=== PATIENT | male | born 1975 | race Caucasian/White ===

== ENCOUNTER 2020-05-21 13:10 | Emergency (ER) | payer MEDICAID, SELFPAY ==
--- NOTE | ~2020-05-21 | XR_ITS ---
EXAMINATION: XR CHEST CLINICAL INFORMATION: Shortness of breath COMPARISON: Chest radiographs 04/06/2019 TECHNIQUE: Portable upright AP view of the chest was obtained. FINDINGS: Patient slightly rotated to right. The lungs are clear. There is no pneumothorax, pleural reaction, airspace consolidation, or effusion. No groundglass opacity. The heart is normal in size. The vascularity is normal. No acute bony abnormality. XR/XR chest 1V IMPRESSION: Unremarkable examination.
[2020-05-21 13:31] VITALS: BP 126/78; PULSE 80; RESP 16; TEMP 37.1; O2SAT 98; BMI 27.6
[2020-05-21 15:10] LABS: Influenza A PCR NEGATIVE (Negative); Influenza B PCR NEGATIVE (Negative); Resp Syncy Virus RNA Qual PCR NEGATIVE (Negative); SARS COV2 PCR INHOUSE POSITIVE (Negative)
--- NOTE | 2020-05-21 15:30 | ED_ITS ---
HPI - General Adult General Chief complaint: General Medical Stated complaint: covid symptoms Time Seen by Provider: 05/21/20 13:37 Source: patient Mode of arrival: ambulatory History of Present Illness HPI narrative: 44-year-old male a past medical history of asthma, hyperlipidemia, hypertension, renal calculi, presenting to the ED complaining headache, myalgias/body aches, and subjective fever x2 days. Presenting to ED with who has URI sx and is being tested for COVID-19 as while. Denies recent travel, shortness of breath, chest pain, fever, cough, abdominal pain, LE edema Onset (ago): day(s) Related Data Previous Rx's Medication Instructions Recorded albuterol sulfate 2 puff INHALATION Q4-6H PRN #6.7 g 05/21/20 azithromycin See Rx Instructions .ROUTE 05/21/20 .COMPLEX #6 tab benzonatate [Tessalon Perles] 100 mg PO TID PRN #14 cap 05/21/20 Allergies Allergy/AdvReac Type Severity Reaction Status Date / Time No Known Allergies Allergy Unverified 12/06/19 15:59 [No Known Allergies*] Review of Systems Review of Systems: Constitutional: +Subj Fever, No Chills ENT/Mouth: No Ear Pain, No Nasal Congestion, No Hoarseness, No sore throat, No Rhinorrhea Cardiovascular: No Chest Pain, No SOB Respiratory: No Cough Gastrointestinal: No Nausea, No Vomiting, No Diarrhea, No Abdominal pain Musculoskeletal: No joint pain, +Myalgias, No Joint Swelling Skin: No Skin Lesions, No rash Neuro: +headache Yes all other systems are reviewed and are negative [facility] Past Medical History Attestation statement: The following information was validated with the patient. Medical History (Updated 05/21/20 @ 15:32 by LISA Wilkerson) Asthma Elevated cholesterol Hypertension Renal calculi Surgical History (Updated 05/21/20 @ 13:35 by Ulises Polk) Hx of heart artery stent Social History Social History Advance Directives: No Advance Directives Information Provided: No Physical Exam Vital Signs: Vital Signs: Last Vital Signs Temp 98.7 F 05/21/20 13:31 Pulse 80 05/21/20 13:31 Resp 16 05/21/20 13:31 BP 126/78 05/21/20 13:31 Pulse Ox 98 05/21/20 13:31 Body Mass Index 27.6 Const: General: cooperative, healthy appearing, no acute distress and well developed Orientation/consciousness: patient oriented x3 Limitations: no limitations HENMT: Head: Yes normal to inspection Ears: hearing grossly normal bilaterally General nose exam: Normal external nose present Face and sinus: Yes normal facial exam Eyes: General: appearance normal, both eyes and all related structures EOM: EOMs intact bilaterally Neck: Neck: Yes normal visual inspection and Yes no meningeal signs Resp: Effort & Inspection: normal respiratory effort Auscultation: clear to auscultation bilaterally, no crackles, no rales, no rhonchi and no wheezes Cardio: Rate: regular rate Heart sounds: S1 normal heart sound present and S2 normal heart sound present GI: Inspection: Yes normal to inspection Skin: Rashes: no rashes Wounds: no wounds Neuro: General: patient oriented x3 and no meningeal signs Gait exam (Neuro): Normal gait present Extrem: General: Yes normal to inspection Course Course Course Narrative: XR chest 1V IMPRESSION: Unremarkable examination -COVID-19 positive Medical Decision Making [facility] Narrative Medical decision making narrative: On exam VSS, NAD, well appearing, lungs CTA, nontoxic, concern for viral syndrome/COVID-19. Low concern for ACS/PE or pneumonia Plan: CXR, COVID-19 testing Lab Data Labs: Lab Results 05/21/20 Range/Units 14:18 Coronavirus (PCR) POSITIVE A (Negative) Influenza Type A (PCR) NEGATIVE (Negative) Influenza Type B (PCR) NEGATIVE (Negative) RSV RNA Qual (PCR) NEGATIVE (Negative) Discharge Plan Discharge Clinical Impression: COVID-19 Patient Disposition: Home, Self-Care Instructions: COVID-19 (Coronavirus Disease 2019) (ED) Additional Instructions: You have COVID-19. Take Tylenol and Motrin at home for fever and body aches. Tessalon Perles are for cough. Azithromycin as antibiotic, take as prescribed Albuterol as inhaler is for shortness of breath/wheezing, take as needed If you develop constant worsening shortness of breath, constant worsening chest pain, fever unresolved with Tylenol or Motrin return to the ED immediately. Call your doctor to inform them of your results At this time you will be okay for discharge. Please plan for self quarantine for up to 10- 14 days. Do not expose yourself to others. You may not go to work. If testing does come back negative you may return to activities as long as you are no longer having any symptoms for at least 3 days. Please continue to follow cold instructions and wash your hands frequently. You may take Tylenol as directed on the bottle for pain or fever. CDC Guidelines for home isolation: - Stay away from others - WEAR A MASK if you are sick AND STAY HOME - Cover your mouth and nose with a tissue when you cough or sneeze. Dispose of tissues in a lined trash can and wash your hands immediately with soap and water for at least 20 seconds. If soap and water are not available, clean hands with alcohol-based hand inpatient auditor that contains at least 60% alcohol. - Clean your hands often with soap and water for at least 20 seconds - Avoid touching your eyes, nose and mouth with unwashed hands - Do not share dishes, drinking glasses, cups, eating utensils, towels, or bed ding with other people in your home. After using these items, wash them thoroughly with soap and water or put in the staff reporter. - Clean high-touch surfaces in your isolation area ( sick room and bathroom) every day; let a caregiver clean and disinfect high-touch surfaces in other areas of the home. Clean the area or item with soap and water or another detergent if it is dirty. Then, use a household disinfectant. - Limit contact with pets and animals: If you must care for a pet, wash your hands before and after interacting with them) Prescriptions: New albuterol sulfate 90 mcg/actuation HFA aerosol inhaler 2 puff inhalation Q4-6H PRN (Reason: shortness of breath or wheezing) Qty: 6.7 RF: 0 azithromycin 250 mg tablet See Rx Instructions .ROUTE .COMPLEX Qty: 6 RF: 0 benzonatate [Tessalon Perles] 100 mg capsule 100 mg PO TID PRN (Reason: cough) Qty: 14 RF: 0 Referrals: Sonia Valadez MD [Primary Care Provider] - 2 days (CALL) Stand Alone Forms: Work/School Release Print Language: Persian
== END 2020-05-21 15:59 | disposition home or self-care (01) ==
PROVIDERS: Physician Assistant; Emergency Provider Emergency Medicine; PCP Internal Medicine
DX: U07.1 COVID-19 (principal); R51.9 Headache, unspecified; M79.10 Myalgia, unspecified site; R50.9 Fever, unspecified; Z79.899 Other long term (current) drug therapy
CPT/HCPCS: 0241U; 36415; 71045; 99282; 99283

== ENCOUNTER 2020-05-25 19:13 | Emergency (ER) | payer MEDICAID, SELFPAY ==
--- NOTE | ~2020-05-25 | XR_ITS ---
EXAMINATION: XR CHEST CLINICAL INFORMATION: Shortness of breath COMPARISON: 05/21/2020 TECHNIQUE: Frontal view of the chest was obtained. FINDINGS: No significant abnormality is noted involving the heart, lungs, mediastinum, bony thorax or soft tissues. XR/XR chest 1V IMPRESSION: Unremarkable examination.
[2020-05-25 19:42] VITALS: BP 117/74; PULSE 70; RESP 18; TEMP 37.4; O2SAT 98; BMI 27.4
--- NOTE | 2020-05-25 20:06 | ED_ITS ---
HPI - General Adult General Chief complaint: General Medical Stated complaint: COVID + Time Seen by Provider: 05/25/20 19:44 Source: patient Mode of arrival: ambulatory Limitations: no limitations History of Present Illness HPI narrative: 44-year-old male here with multiple complaints. Tells me he was diagnosed with COVID May 21. he had x-ray done which is unremarkable. he was placed on azithromycin which hhe completed this morning. he is here today with continued shortness of breath with exertion, cough, subjective fevers, chills, body aches, diarrhea, low back pain, nausea. Taking Motrin and Tylenol w ith improvement in symptoms. No chest pain, leg swelling or pain. Tells me the symptoms are not worsened but persistent. Related Data Previous Rx's Medication Instructions Recorded albuterol sulfate 2 puff INHALATION Q4-6H PRN #6.7 g 05/21/20 azithromycin See Rx Instructions .ROUTE 05/21/20 .COMPLEX #6 tab benzonatate [Tessalon Perles] 100 mg PO TID PRN #14 cap 05/21/20 Allergies Allergy/AdvReac Type Severity Reaction Status Date / Time No Known Allergies Allergy Unverified 12/06/19 15:59 [No Known Allergies*] Review of Systems Review of Systems: Yes all other systems are reviewed and are negative Constitutional: Constitutional: Reports no additional constitutional complaints, Denies body ache(s), Reports chills, Reports fever(s) (subjective ), Denies headache(s) and Denies weakness Comments: +body aches Eyes: Eyes: Reports no additional eye complaints and Denies change in vision ENT: Reports system reviewed and no additional complaints, except as documented, Denies dizziness, Denies headache(s), Denies nasal congestion, Denies nasal discharge and Denies neck pain Cardiovascular: Cardiovascular: Reports no additional cardiovascular complaints, Denies chest pain, Denies leg edema and Reports dyspnea Respiratory: Respiratory: Reports no additional respiratory complaints, Reports cough and Reports dyspnea Gastrointestinal: Gastrointestinal: Reports no additional gastrointestinal complaints, Denies abdominal pain, Reports diarrhea, Reports nausea and Denies vomiting Genitourinary: Genitourinary: Denies urinary incontinence Musculoskeletal: Musculoskeletal: Reports no additional musculoskeletal complaints, Denies back pain, Denies arthralgias, Denies joint swelling, Denies neck pain, Denies numbness and Denies tingling Integumentary/Breasts: Skin/Breast: Reports system reviewed and no additional complaints, except as docu and Denies rash Neurologic: Reports system reviewed and no additional complaints, except as documented, Denies Abnormal speech present, Denies dizziness, Denies headache(s), Denies numbness, Denies tingling and Denies weakness PMFSH Past Medical History Attestation statement: The following information was validated with the patient. Source: old records reviewed and nursing notes reviewed Medical History Asthma Elevated cholesterol Hypertension Renal calculi Surgical History Hx of heart artery stent Social History Social History Advance Directives: No Advance Directives Information Provided: Yes Physical Exam Vital Signs: Vital Signs: Last Vital Signs Temp 99.3 F 05/25/20 19:42 Pulse 70 05/25/20 19:42 Resp 18 05/25/20 19:42 BP 117/74 05/25/20 19:42 Pulse Ox 98 05/25/20 19:42 Body Mass Index 27.4 Const: General: cooperative, healthy appearing, comfortable and no acute distress Orientation/consciousness: patient oriented x3 Limitations: no limitations HENMT: Head: Yes normal to inspection Ears: hearing grossly normal bilaterally General nose exam: Normal external nose present Face and sinus: Yes normal facial exam Mouth: Normal oral and palatal mucosa present Throat: Yes posterior oropharynx normal Eyes: General: appearance normal, both eyes and all related structures Pupils: Equal, round and reactive pupils present Neck: Neck: Yes normal visual inspection Chest: Chest palpation & inspection: normal inspection of the chest Resp: Effort & Inspection: normal respiratory effort Auscultation: clear to auscultation bilaterally Cardio: Rate: regular rate Rhythm: regular rhythm Peripheral pulses: Peripheral pulses 2+ throughout GI: Inspection: Yes normal to inspection Palpation (GI): Soft to palpation and nontender Auscultation: normal bowel sounds Back/Spine/Pelvis: Thoracic/Lumbar Spine: thoracic and lumbar spine normal to inspection Skin: General skin exam: no rashes or lesions noted Neuro: General: patient oriented x3, no focal motor deficits and normal sensation to monofilament Cranial nerves: Yes Equal, round and reactive pupils present Cognition (Neuro): normal cognition Speech: No Abnormal speech present Gait exam (Neuro): Normal gait present Motor exam (neuro): 5/5 motor strength present throughout Extrem: General: Yes normal to inspection, Yes no pedal edema and Yes no calf tenderness Course Course Course Narrative: 44 yo male known COVID + here with continued symptoms of subjective fevers, chills, cough, SOB, diarrhea, nausea. Stable vital signs, well appearing. Will repeat CXR. 2030-chest x-ray unremarkable. Recommended continuing supportive care at home. Reviewed worrisome signs and symptoms and when to return to the emergency department. Comfortable with discharge home. Medical Decision Making Medical Records Medical records reviewed: Yes I reviewed the patient's medical records. Lab Data Lab results reviewed: Yes I reviewed the patient's lab results. Imaging Data Chest x-ray: Attestation: I personally reviewed and interpreted this imaging study as follows: Radiologist's impression: [address] [id number] ReportSigned Patient: Jimi Elias JMR#: [id number]: [id number]:[id number]/Sex: 44 / MADM Date: 05/25/20Loc: EDAttending Dr: Ordering Physician: MAR GARNETT NP Date of Service: 05/25/20 Procedure(s): XR chest 1V Accession Number(s): [id number] cc: MAR GARNETT NP~ EXAMINATION: XR CHEST CLINICAL INFORMATION: Shortness of breath COMPARISON: 05/21/2020 TECHNIQUE: Frontal view of the chest was obtained. FINDINGS: No significant abnormality is noted involving the heart, lungs, mediastinum, bony thorax or soft tissues. XR/XR chest 1V IMPRESSION: Unremarkable examination. Discharge Plan Discharge Clinical Impression: COVID-19 Patient Disposition: Home, Self-Care Instructions: COVID-19 (Coronavirus Disease 2019) (ED) Additional Instructions: Your x-ray today looks unremarkable. There is no signs of pneumonia. Continue your albuterol as needed Continue Motrin and Tylenol alternating Increase fluids, rest Return for worsening shortness of breath, chest pain as discussed. Consider buying a pulse oximeter and monitor her oxygen saturations at home. Return here for oxygen saturations less than 90%. Prescriptions: No Action albuterol sulfate 90 mcg/actuation HFA aerosol inhaler 2 puff inhalation Q4-6H PRN (Reason: shortness of breath or wheezing) Qty: 6.7 RF: 0 azithromycin 250 mg tablet See Rx Instructions .ROUTE .COMPLEX Qty: 6 RF: 0 benzonatate [Tessalon Perles] 100 mg capsule 100 mg PO TID PRN (Reason: cough) Qty: 14 RF: 0 Referrals: ED Physician,Generic [Physician] - 2 days Interventions: ED Discharge Assessment Last Done: 05/25/20 20:59 Discharge Date/Time: 05/25/20 21:00
== END 2020-05-25 21:00 | disposition home or self-care (01) ==
PROVIDERS: Emergency Provider Internal Medicine
DX: U07.1 COVID-19 (principal); I10 Essential (primary) hypertension; J45.909 Unspecified asthma, uncomplicated
CPT/HCPCS: 71045; 99283

== ENCOUNTER 2020-05-29 11:47 | Emergency (ER) | payer MEDICAID, SELFPAY ==
--- NOTE | ~2020-05-29 | CT_ITS ---
EXAMINATION: CT ABDOMEN AND PELVIS WITH CONTRAST CLINICAL INFORMATION: Nausea vomiting and abdominal pain COMPARISON: None TECHNIQUE: Multidetector volumetric images were obtained from the superior aspect of the liver through the pubic symphysis following administration 85 mL of Omnipaque 350 intravenous contrast. Sagittal and coronal reformatted images were obtained on the technologist's workstation. Oral contrast: No This CT examination was performed using dose optimization techniques as appropriate, variously including the following: *Automated exposure control *Adjustment of mA and/or kV according to patient size (this includes techniques or standardized protocols for targeted exams where dose is matched to indication/reason for exam; i.e. extremities or head) *Use of iterative reconstruction technique DLP: 449 mGy-cm FINDINGS: LUNG BASES: The visualized lung bases are unremarkable. LIVER, GALLBLADDER, AND BILIARY TREE: The liver is normal in size, shape, and attenuation. The mass that measured fat density on the lungs CT measures fluid density on the current exam. This is most likely a hepatic cyst. As stated in the prior report, ultrasound is recommended for further evaluation. No focal a hepatic lesion or biliary ductal dilatation is present. The gallbladder is unremarkable with no evidence of radiopaque gallstones, gallbladder wall thickening, or obvious pericholecystic inflammatory changes. PANCREAS: Unremarkable. SPLEEN: Unremarkable. ADRENAL GLANDS: Unremarkable. KIDNEYS AND URETERS: The kidneys are normal in size, shape, and attenuation. No hydronephrosis, hydroureter, or calculi seen. No perinephric stranding. BLADDER: Unremarkable. GASTROINTESTINAL TRACT: The small and large bowel are unremarkable. The appendix is unremarkable. ABDOMINAL WALL: No significant hernia is appreciated. LYMPH NODES: Small inguinal nodes are present but there is no retroperitoneal adenopathy. VASCULAR: Unremarkable. PELVIC VISCERA: Prostate and seminal vesicles are unremarkable. OSSEOUS STRUCTURES: Unremarkable. Some mild degenerative changes present at T12-L1. CT/CT abdomen pelvis w con IMPRESSION: A cause for the patient's nausea, vomiting and abdominal pain has not been found. Incidental note made of probable hepatic cyst. Ultrasound is recommended for further evaluation.
--- NOTE | ~2020-05-29 | CT_ITS ---
EXAMINATION: CT ANGIOGRAM CHEST WITH AND WITHOUT CONTRAST (CT PULMONARY ANGIOGRAM FOR PE) CLINICAL INFORMATION: Shortness of breath/chest discomfort, + COVID. COMPARISON: None TECHNIQUE: Prior to contrast administration, noncontrast localization images were obtained. Subsequently, multidetector volumetric imaging was performed from the thoracic inlet to below the diaphragms following the administration of 85 mL Omnipaque 350 intravenous contrast. No contrast reaction reported. Sagittal, coronal, and MIP oblique sagittal reformatted images were obtained on the CT workstation, uploaded to PACS, and reviewed. This CT examination was performed using dose optimization techniques as appropriate, variously including the following: *Automated exposure control. *Adjustment of mA and/or kV according to patient size (this includes techniques or standardized protocols for targeted exams where dose is matched to indication/reason for exam; i.e. extremities or head). *Use of iterative reconstruction technique. Total exam dose-length product 237 mGy-cm. FINDINGS: QUALITY OF STUDY/CONTRAST BOLUS: Satisfactory. PULMONARY ARTERIES: No central or segmental pulmonary emboli. THORACIC AORTA: No aneurysm or dissection. A 4-vessel aortic arch is seen with a separate origin to the left vertebral artery. LUNG: Multifocal ground-glass infiltrates are seen involving all lobes. Bibasilar atelectasis is present. Findings are quite suggestive of COVI-19. No suspicious lung masses are seen. PLEURA: No pleural effusion or pneumothorax. MEDIASTINUM: Normal heart size. No pericardial effusion. No hilar or mediastinal lymphadenopathy. No evidence of septal bowing or right heart strain. CHEST WALL/AXILLA: No axillary or internal mammary lymphadenopathy. OSSEOUS STRUCTURES: No acute or suspicious osseous abnormality. UPPER ABDOMEN: There is probable hepatic steatosis present. No reflux of contrast into the hepatic veins to suggest elevated right heart pressures. There is an ill-defined 2.5 cm mass centrally in the liver that measures fat density which is of uncertain significance. Liver ultrasound would be a good first step at further assessment. CT/CT angio chest PE protocol IMPRESSION: 1. No evidence of pulmonary emboli. 2. Multifocal ground-glass infiltrates suggestive of COVID infection. 3. A 2.5 cm liver mass. This measures fat density which is of questionable significance. Ultrasound is recommended for further evaluation. VTE: Negative.
--- NOTE | ~2020-05-29 | US_ITS ---
EXAMINATION: US ABDOMEN LIMITED CLINICAL INFORMATION: 2.5 cm mass centrally in the liver that measured fat density on the chest CT but fluid density on the abdominal CT. COMPARISON: CT chest and abdomen performed earlier today TECHNIQUE: Real-time imaging of the right upper quadrant abdominal viscera. FINDINGS: The exam is extremely limited as the patient would not cooperate and assuming the supine position. Unfortunately, the mass in the liver could not be visualized. The liver was echogenic consistent with hepatic steatosis. As the mass was not seen, this could represent a hemangioma that was isoechoic with the liver. US/US abdomen limited IMPRESSION: The liver mass seen on CT could not be visualized with ultrasound. Diagnosis code ovaries be confirmed with an elective outpatient dynamic liver MRI.
[2020-05-29 14:55] VITALS: BP 130/79; PULSE 89; RESP 18; TEMP 37.7; O2SAT 99; BMI 27.3
--- NOTE | 2020-05-29 15:03 | ECG_ITS ---
Test Reason : DYSPNEA Blood Pressure : / mmHG Vent. Rate : 083 BPM Atrial Rate : 083 BPM P-R Int : 126 ms QRS Dur : 074 ms QT Int : 354 ms P-R-T Axes : 046 018 021 degrees QTc Int : 415 ms Normal sinus rhythm Normal ECG When compared with ECG of 05-NOV-2019 06:40, No significant change was found Referred By: Lynn Argueta Electronically Signed By:RIVERA RITCHIE MD
--- NOTE | 2020-05-29 15:05 | PC.NURSE ---
Pt alert, oriented x 3. Dry cough, complaining of chest discomfort, Pt has history of heart attack in 2010. Pt to be moved to room 1 in ED for cardiac monitoring. Provider Lynn singleton.
[2020-05-29] MEDS: 0.9 % Sodium Chloride 1,000 ML 999 ML IVCONT (15:41)
[2020-05-29 15:47] LABS: MANUAL DIFF FLAG NO
[2020-05-29 15:56] LABS: INTERNATIONAL NORM RATIO 1.1 (0.9-1.1); Prothrombin Time 13.2 SEC (10.8-13.0)
[2020-05-29 15:59] LABS: Partial Thromboplastin Time 34.7 SEC (24.1-38.0)
[2020-05-29 16:00] VITALS: BP 130/80; PULSE 82; RESP 20; TEMP 36.3; O2SAT 100
--- NOTE | 2020-05-29 16:00 | ED.URI ---
HPI - URI/Sore Throat General Chief Complaint: Upper Respiratory Symptoms Stated Complaint: covid postive cough Time Seen by Provider: 05/29/20 14:51 Source: patient Mode of arrival: ambulatory Limitations: language barrier ([place]ic-speaking) History of Present Illness HPI Narrative: 44-year-old male with a past medical history of COVID-19 recently diagnosed on 05/21/2020, myocardial infarction with cardiac stent, diabetes, hypertension, hyperlipidemia, asthma and renal calculi presenting to the ED with complaints of worsening symptoms which include fatigue, fevers, productive cough, shortness of breath, chest discomfort, pain with deep inspiration, nausea/vomiting/diarrhea and abdominal pain over the past few days worse today. MD elicited complaint: fever and cough Pertinent past history: asthma and other (Myocardial infarction) Onset (ago): day(s) (05/21/2020 worse today ) Consistency: constant and progressively worsening Severity: moderate Able to tolerate fluids by mouth: Yes Exacerbating factors: exertion and deep breaths Relieving factors: nothing Associated symptoms: fever, chills, myalgias, cough, chest pain, shortness of breath, abdominal pain, nausea, vomiting and diarrhea Treatments prior to arrival: none Related Data Previous Rx's Medication Instructions Recorded albuterol sulfate 2 puff INHALATION Q4-6H PRN #6.7 g 05/21/20 azithromycin See Rx Instructions .ROUTE 05/21/20 .COMPLEX #6 tab benzonatate [Tessalon Perles] 100 mg PO TID PRN #14 cap 05/21/20 Allergies Allergy/AdvReac Type Severity Reaction Status Date / Time No Known Allergies Allergy Unverified 12/06/19 15:59 [No Known Allergies*] Review of Systems Review of Systems: Constitutional : + Fever, +Chills, + Fatigues, + Malaise, No Night Sweats, No Weight loss ENT/Mouth : No Hearing loss, No Ear Pain, No Nasal Congestion, No Sinus Pain, No Hoarseness, No sore throat, No Rhinorrhea, No Swallowing Difficulty Eyes: No Eye Pain, No Swelling, No Redness, No Foreign Body, No Discharge, No Vision Changes Cardiovascular : + Chest discomfort, + SOB, + Dyspnea on Exertion, + Orthopnea, No Edema, No extremity swelling, No Palpitations Respiratory : + Cough, + Sputum, No Wheezing Gastrointestinal : + Nausea, + Vomiting, + Diarrhea, + abdominal Pain, No Hematochezia, No Melena Genitourinary : No irregular bleeding, No Dysuria, No Urinary Frequency, No Hematuria, No Urinary Incontinence, No Urgency, No Flank Pain, No Urinary Flow Changes, No Hesitancy Musculoskeletal : No joint pain, No Myalgias, No Joint Swelling Skin : No Skin Lesions, No rash Neuro : No Weakness, No Numbness, No Paresthesias, No Loss of Consciousness, No Dizziness, No Headache Psych : No Anxiety/Panic, No Depression, No SI/HI/AH/VH Heme/Lymph: No Bruising, No Bleeding,No Lymphadenopathy Endocrine : No Polyuria, No Polydipsia, No Temperature Intolerance Yes all other systems are reviewed and are negative [facility] Past Medical History Attestation statement: The following information was validated with the patient. Medical History Asthma Elevated cholesterol Hypertension Renal calculi Surgical History Hx of heart artery stent Social History Social History Alcohol intake: never Smoking Status: Never smoker Use of substances other than those prescribed or required for medical reasons: No Advance Directives: No Advance Directives Information Provided: No Physical Exam Vital Signs: Vital Signs: Last Vital Signs Temp 97.4 F 05/29/20 16:00 Pulse 82 05/29/20 16:00 Resp 20 05/29/20 16:00 BP 130/80 05/29/20 16:00 Pulse Ox 100 05/29/20 16:00 Body Mass Index 27.3 vital signs have been reviewed as normal and appeared to be correct. Blood pressure normal. Heart rate normal. Respiration rate normal. Temperature normal. Oxygen saturation normal. Appearance: Alert. Oriented X3. No acute distress. Head: Normal external exam. Normocephalic. Eyes: PERRLA. EOMI. Conjunctiva and sclera normal. Eyelids normal. ENT: Tympanic membranes normal. Nares normal. External ear canals normal. Pharynx normal. Uvula midline. Moist mucous membranes. No trismus noted. No drooling noted. No muffled voice noted. Neck: Normal inspection. Neck supple. FROM. No adenopathy. No meningeal signs. CVS: Normal heart rate and rhythm. Heart sound normal. No murmurs noted. Pulses normal throughout. Respiratory: No respiratory distress. Painless inspiration. Breath sounds normal. No wheezes/rales/rhonchi noted. Chest nontender. No accessory muscle usage noted or decreased air movement noted. Abdomen: Soft and mild tenderness diffusely. Nondistended. No guarding. No rigidity. Bowel sounds normal in all 4 quadrants. No distention noted. No organomegaly noted. No visible injury noted. No rebound tenderness. Negative Rovsing sign. Negative obturator's sign. Negative psoas sign. Negative Vo sign. Back: No CVA tenderness. Full range of motion noted. Skin: Skin warm and dry. Normal skin color. Normal skin turgor. No rashes/lesions/lacerations noted. Extremities: No lower extremity noted. No calf tenderness noted. Extremities exhibit normal range of motion. Extremities nontender. Neuro: Oriented X 3. No motor deficit. No sensory deficit. Reflexes normal. Course Course Course Narrative: 15pm - 44-year-old male with a past medical history of COVID-19 recently diagnosed on 05/21/2020, myocardial infarction with cardiac stent, diabetes, hypertension, hyperlipidemia, asthma and renal calculi presenting to the ED with complaints of worsening symptoms which include fatigue, fevers, productive cough, shortness of breath, chest discomfort, pain with deep inspiration, nausea/vomiting/diarrhea and abdominal pain over the past few days worse today. - on exam patient is alert and oriented x3. Not in any acute distress. Vital signs are stable within normal limits. CV RRR, lungs clear to auscultation, abdomen is soft although diffusely tender. Patient is neuro intact. No focal neuro deficits noted. No calf tenderness or lower extremity edema noted. - Concern for ACS vs PE vs PNA vs worsening COVID vs intra-abdominal process - Plan: Labs, EKG, CT scan of abdomen and pelvis with IV contrast, CT angio chest for PE then re-evaluate Reevaluation(s) Reevaluation #1: - white blood cell count 3000 - potassium 5.2 - BUN 19 - alkaline phosphate 139 - CRP 2.33 - all other labs including troponin within normal limits. - EKG normal sinus rhythm with ventricular rate of 83 with normal SC interval normal QRS duration normal QT/QTC interval. No acute ischemic changes noted. Similar compared to prior EKG 11/05/2019 - at this time waiting CT scan angio of chest for PE and CT scan of abdomen and pelvis with IV contrast Time: 16:58 Reevaluation #2: - CT scan of abdomen pelvis revealed an area of concern in the liver therefore they are recommending a ultrasound therefore ordered a liver ultrasound at this time. - CT scan of chest for PE negative for PE. - I updated the patient on the plan sign-out to CAROLINE Hernandez pending liver ultrasound. Time: 18:00 MDM - URI/Sore Throat Medical Records Attestation: I reviewed the patient's medical records. Lab Data Attestation: I reviewed the patient's lab results. Result diagrams: 05/29/20 15:38 05/29/20 15:38 Labs: Lab Results 05/29/20 05/29/20 05/29/20 Range/Units 15:38 15:38 15:38 WBC 3.4 L (4.8-10.8) X10*3/uL RBC 4.66 (4.60-5.80) X10*6/uL Hgb 13.2 L (14.0-18.0) g/dl Hct 39.6 L (42-52) % MCV 85.0 (80-98) fL MCH 28.3 (27.0-33.0) pg MCHC 33.3 (31.0-36.0) g/dl RDW 12.5 (11.0-16.0) % Plt Count 119 L (160-400) X10*3/uL MPV 10.3 (9.4-12.4) fL Immature Gran % (Auto) 0.3 (0.0-0.4) % Neut % (Auto) 71.4 (45-73) % Lymph % (Auto) 20.7 (20-40) % [place] % (Auto) 7.6 (2-11) % Eos % (Auto) 0.0 (0-4) % Baso % (Auto) 0.0 (0-2) % Lymph # (Auto) 0.7 L (1.2-4.9) X10*3/uL [place] # (Auto) 0.3 (0.1-1.2) X10*3/uL Eos # (Auto) 0.0 (0.0-0.4) X10*3/uL Baso # (Auto) 0.0 (0.0-0.2) X10*3/uL Abs Immat Gran (auto) 0.01 (0.00-0.03) X10*3/uL Absolute Neuts (auto) 2.5 (2.0-8.3) X10*3/uL Absolute Nucleated RBC 0.000 (0.0-0.012) X10*3/uL Nucleated RBC % (auto) 0.0 (0.0-0.2) /100WBC PT 13.2 H (10.8-13.0) SEC INR 1.1 (0.9-1.1) APTT 34.7 (24.1-38.0) SEC D-Dimer < 200 NG/ML Sodium 138 (135-145) mmol/L Potassium 5.2 H (3.3-5.1) mmol/L Chloride 100 (96-108) mmol/L Carbon Dioxide 28 (22-29) mmol/L Anion Gap 15 (12-20) BUN 19 H (9-16) mg/dL Creatinine 1.37 (0.5-1.4) mg/dL Estim Creat Clear Calc 66.5 Estimated GFR 56 Random Glucose 162 H (60-115) mg/dL Calcium 9.2 (8.4-10.2) mg/dL Magnesium 1.8 (1.6-2.6) mg/dL Ferritin 188 (20-250) ng/mL Total Bilirubin 0.5 (0.0-1.0) mg/dL Direct Bilirubin 0.2 (0.0-0.5) mg/dL AST 30 (5-37) U/L ALT 28 (0-40) U/L Alkaline Phosphatase 139 H (39-117) U/L Lactate Dehydrogenase 178 (118-273) U/L Troponin I High Sens (<3.5-35.0) ng/L C-Reactive Protein 2.33 H (< or = 0.50) mg/dL B-Natriuretic Peptide (<100) pg/mL Total Protein 7.9 (6.5-8.0) g/dL Albumin 4.6 (3.5-5.0) g/dL 05/29/20 Range/Units 15:38 WBC (4.8-10.8) X10*3/uL RBC (4.60-5.80) X10*6/uL Hgb (14.0-18.0) g/dl Hct (42-52) % MCV (80-98) fL MCH (27.0-33.0) pg MCHC (31.0-36.0) g/dl RDW (11.0-16.0) % Plt Count (160-400) X10*3/uL MPV (9.4-12.4) fL Immature Gran % (Auto) (0.0-0.4) % Neut % (Auto) (45-73) % Lymph % (Auto) (20-40) % [place] % (Auto) (2-11) % Eos % (Auto) (0-4) % Baso % (Auto) (0-2) % Lymph # (Auto) (1.2-4.9) X10*3/uL [place] # (Auto) (0.1-1.2) X10*3/uL Eos # (Auto) (0.0-0.4) X10*3/uL Baso # (Auto) (0.0-0.2) X10*3/uL Abs Immat Gran (auto) (0.00-0.03) X10*3/uL Absolute Neuts (auto) (2.0-8.3) X10*3/uL Absolute Nucleated RBC (0.0-0.012) X10*3/uL Nucleated RBC % (auto) (0.0-0.2) /100WBC PT (10.8-13.0) SEC INR (0.9-1.1) APTT (24.1-38.0) SEC D-Dimer NG/ML Sodium (135-145) mmol/L Potassium (3.3-5.1) mmol/L Chloride (96-108) mmol/L Carbon Dioxide (22-29) mmol/L Anion Gap (12-20) BUN (9-16) mg/dL Creatinine (0.5-1.4) mg/dL Estim Creat Clear Calc Estimated GFR Random Glucose (60-115) mg/dL Calcium (8.4-10.2) mg/dL Magnesium (1.6-2.6) mg/dL Ferritin (20-250) ng/mL Total Bilirubin (0.0-1.0) mg/dL Direct Bilirubin (0.0-0.5) mg/dL AST (5-37) U/L ALT (0-40) U/L Alkaline Phosphatase (39-117) U/L Lactate Dehydrogenase (118-273) U/L Troponin I High Sens < 3.5 (<3.5-35.0) ng/L C-Reactive Protein (< or = 0.50) mg/dL B-Natriuretic Peptide < 10 (<100) pg/mL Total Protein (6.5-8.0) g/dL Albumin (3.5-5.0) g/dL Imaging Data CT scan of abdomen and pelvis with IV contrast: Attestation: I personally reviewed and interpreted this imaging study as follows: Radiologist's impression: FINDINGS: LUNG BASES: The visualized lung bases are unremarkable. LIVER, GALLBLADDER, AND BILIARY TREE: The liver is normal in size, shape, and attenuation. The mass that measured fat density on the lungs CT measures fluid density on the current exam. This is most likely a hepatic cyst. As stated in the prior report, ultrasound is recommended for further evaluation. No focal a hepatic lesion or biliary ductal dilatation is present. The gallbladder is unremarkable with no evidence of radiopaque gallstones, gallbladder wall thickening, or obvious pericholecystic inflammatory changes. PANCREAS: Unremarkable. SPLEEN: Unremarkable. ADRENAL GLANDS: Unremarkable. KIDNEYS AND URETERS: The kidneys are normal in size, shape, and attenuation. No hydronephrosis, hydroureter, or calculi seen. No perinephric stranding. BLADDER: Unremarkable. GASTROINTESTINAL TRACT: The small and large bowel are unremarkable. The appendix is unremarkable. ABDOMINAL WALL: No significant hernia is appreciated. LYMPH NODES: Small inguinal nodes are present but there is no retroperitoneal adenopathy. VASCULAR: Unremarkable. PELVIC VISCERA: Prostate and seminal vesicles are unremarkable. OSSEOUS STRUCTURES: Unremarkable. Some mild degenerative changes present at T12-L1. CT/CT abdomen pelvis w con IMPRESSION: A cause for the patient's nausea, vomiting and abdominal pain has not been found. Incidental note made of probable hepatic cyst. Ultrasound is recommended for further evaluation. CT scan of chest for PE: Attestation: I personally reviewed and interpreted this imaging study as follows: Radiologist's impression: FINDINGS: QUALITY OF STUDY/CONTRAST BOLUS: Satisfactory. PULMONARY ARTERIES: No central or segmental pulmonary emboli. THORACIC AORTA: No aneurysm or dissection. A 4-vessel aortic arch is seen with a separate origin to the left vertebral artery. LUNG: Multifocal ground-glass infiltrates are seen involving all lobes. Bibasilar atelectasis is present. Findings are quite suggestive of COVI-19. No suspicious lung masses are seen. PLEURA: No pleural effusion or pneumothorax. MEDIASTINUM: Normal heart size. No pericardial effusion. No hilar or mediastinal lymphadenopathy. No evidence of septal bowing or right heart strain. CHEST WALL/AXILLA: No axillary or internal mammary lymphadenopathy. OSSEOUS STRUCTURES: No acute or suspicious osseous abnormality. UPPER ABDOMEN: There is probable hepatic steatosis present. No reflux of contrast into the hepatic veins to suggest elevated right heart pressures. There is an ill-defined 2.5 cm mass centrally in the liver that measures fat density which is of uncertain significance. Liver ultrasound would be a good first step at further assessment. CT/CT angio chest PE protocol IMPRESSION: 1. No evidence of pulmonary emboli. 2. Multifocal ground-glass infiltrates suggestive of COVID infection. 3. A 2.5 cm liver mass. This measures fat density which is of questionable significance. Ultrasound is recommended for further evaluation. VTE: Negative. ECG Data Attestation: I personally reviewed and interpreted this ECG as follows: ECG interpretation date: 05/29/20 ECG interpretation time: 16:25 Interpretation: - EKG normal sinus rhythm with ventricular rate of 83 with normal SC interval normal QRS duration normal QT/QTC interval. No acute ischemic changes noted. Similar compared to prior EKG 11/05/2019 Discharge Plan Discharge Prescriptions: No Action albuterol sulfate 90 mcg/actuation HFA aerosol inhaler 2 puff inhalation Q4-6H PRN (Reason: shortness of breath or wheezing) Qty: 6.7 RF: 0 azithromycin 250 mg tablet See Rx Instructions .ROUTE .COMPLEX Qty: 6 RF: 0 benzonatate [Tessalon Perles] 100 mg capsule 100 mg PO TID PRN (Reason: cough) Qty: 14 RF: 0
[2020-05-29 16:01] LABS: Hematocrit 39.6 % (42-52); Hemoglobin 13.2 g/dl (14.0-18.0); Imm Gran Abs Auto 0.01 X10*3/uL (0.00-0.03); Imm Gran Pct Auto 0.3 % (0.0-0.4); Lymphocytes Absolute Auto 0.7 X10*3/uL (1.2-4.9); Lymphocytes Percent Auto 20.7 % (20-40); Mean Corpuscular HGB Conc 33.3 g/dl (31.0-36.0); Mean Corpuscular Hemoglobin 28.3 pg (27.0-33.0); Mean Platelet Volume 10.3 fL (9.4-12.4); Monocytes Absolute Auto 0.3 X10*3/uL (0.1-1.2); Monocytes Percent Auto 7.6 % (2-11); Neutrophils Absolute Auto 2.5 X10*3/uL (2.0-8.3); Neutrophils Percent Auto 71.4 % (45-73); Platelet Count 119 X10*3/uL (160-400); Red Blood Count 4.66 X10*6/uL (4.60-5.80); Red Cell Distribution Width 12.5 % (11.0-16.0); White Blood Count 3.4 X10*3/uL (4.8-10.8)
[2020-05-29 16:15] LABS: D Dimer < 200 NG/ML
[2020-05-29 16:19] LABS: Alanine Aminotransferase 28 U/L (0-40); Albumin Level 4.6 g/dL (3.5-5.0); Alkaline Phosphatase 139 U/L (39-117); Anion Gap 15 (12-20); Aspartate Amino Transferase 30 U/L (5-37); Bilirubin Direct 0.2 mg/dL (0.0-0.5); Bilirubin Total 0.5 mg/dL (0.0-1.0); Blood Urea Nitrogen 19 mg/dL (9-16); C Reactive Protein 2.33 mg/dL (< or = 0.50); Calcium 9.2 mg/dL (8.4-10.2); Carbon Dioxide 28 mmol/L (22-29); Chloride 100 mmol/L (96-108); Creatinine Clr Calc Pharmacy 66.5; Estimated Glomerular Filt Rate 56; Glucose Random 162 mg/dL (60-115); Lactate Dehydrogenase 178 U/L (118-273); Magnesium 1.8 mg/dL (1.6-2.6); Potassium 5.2 mmol/L (3.3-5.1); Sodium 138 mmol/L (135-145); Total Protein 7.9 g/dL (6.5-8.0)
[2020-05-29 16:26] LABS: B Type Natriuretic Peptide < 10 pg/mL (<100); Troponin-I High Sensitivity < 3.5 ng/L (<3.5-35.0)
[2020-05-29 16:40] LABS: Ferritin 188 ng/mL (20-250)
--- NOTE | 2020-05-29 17:15 | PC.NURSE ---
Pt out of room to imaging.
[2020-05-29] MEDS: iohexoL 350 MG/ML 100 ML INFUS..BTL IV (17:22)
--- NOTE | 2020-05-29 17:27 | PC.NURSE ---
Pt back to room. Ambulated with steady gait.
[2020-05-29 18:33] VITALS: BP 136/78; PULSE 86; RESP 18; TEMP 36.3; O2SAT 99
[2020-05-29 22:00] VITALS: BP 125/81; PULSE 74; RESP 16; TEMP 36.6; O2SAT 98
[2020-05-30 15:55] LABS: Procalcitonin 0.06 ng/mL
== END 2020-05-29 22:43 | disposition home or self-care (01) ==
PROVIDERS: Physician Assistant Medical; Emergency Provider Emergency Medicine Emergency Medical Services; PCP Internal Medicine
DX: J06.9 Acute upper respiratory infection, unspecified (principal); R07.9 Chest pain, unspecified; Z86.16 Personal history of COVID-19; R16.0 Hepatomegaly, not elsewhere classified; J45.909 Unspecified asthma, uncomplicated; E11.9 Type 2 diabetes mellitus without complications; I10 Essential (primary) hypertension; I25.2 Old myocardial infarction; Z87.442 Personal history of urinary calculi
CPT/HCPCS: 36415; 71275; 74177; 76705; 80048; 80076; 82728; 83615; 83735; 83880; 84145; 84484; 85025; 85379; 85610; 85730; 86140; 93005; 96360; 99284; Q9967

== ENCOUNTER 2020-06-26 10:37 | Emergency (ER) | payer MEDICAID, SELFPAY ==
[2020-06-26] VITALS (7 sets, daily range): BP systolic 118–156; BP diastolic 77–97; PULSE 69–80; RESP 14–20; TEMP 36.3–37.2; O2SAT 96–100; BMI 26.6
--- NOTE | ~2020-06-26 | FL_ITS ---
EXAMINATION: XR FLUOROSCOPY WITH IMAGES CLINICAL INFORMATION: Left ureteral stent placement COMPARISON: Previous CT of the abdomen and pelvis 06/26/2020 TECHNIQUE: Fluoroscopy performed by Dr. Moi Moreira. Fluoroscopy time: 4.9 minutes Dose: 1.08 mgy Images: 2 FINDINGS: Imaging is limited. There is increased attenuation in the left midabdomen question representing contrast in the left renal collecting system. There may be visualization of a catheter or stent in the left ureter. FL/FL guidance in OR IMPRESSION: Fluoroscopic guidance for left ureteral stent placement.
--- NOTE | ~2020-06-26 | CT_ITS ---
EXAMINATION: CT ABDOMEN AND PELVIS WITHOUT CONTRAST CLINICAL INFORMATION: Abdominal pain. COMPARISON: 05/29/2020 CT. TECHNIQUE: Multidetector volumetric imaging was performed from the superior aspect of the liver through the pubic symphysis. Sagittal and coronal reformatted images were obtained on the technologist's workstation. This CT examination was performed using dose optimization techniques as appropriate, variously including the following: *Automated exposure control *Adjustment of mA and/or kV according to patient size (this includes techniques or standardized protocols for targeted exams where dose is matched to indication/reason for exam; i.e. extremities or head) *Use of iterative reconstruction technique DLP: 463 mGy-cm FINDINGS: LUNG BASES: The visualized lung bases are unremarkable. LIVER, GALLBLADDER, AND BILIARY TREE: The liver is normal in size, shape, and attenuation. Stable low-attenuation focus in the right lobe, measures fat density, suggestive of a fatty focus. No focal hepatic lesion or biliary ductal dilatation is present. The gallbladder is unremarkable with no evidence of radiopaque gallstones, gallbladder wall thickening, or obvious pericholecystic inflammatory changes. PANCREAS: Unremarkable. SPLEEN: Unremarkable. ADRENAL GLANDS: Unremarkable. KIDNEYS AND URETERS: 8 mm calculus in the left proximal ureter (at the level of the L3-L4 disc space). Moderate hydroureteronephrosis proximal to this. There is mild dilatation of the ureter distal to the calculus as well. Multiple small left renal calculi, the largest measuring 3 mm in the upper pole. [id number] left perinephric stranding. 2 mm calculus in the right renal lower pole. Mild right hydronephrosis. No calculi or filling defect is evident in the right ureter. BLADDER: Unremarkable. GASTROINTESTINAL TRACT: The small and large bowel are unremarkable. The appendix is unremarkable. ABDOMINAL WALL: No significant hernia is appreciated. LYMPH NODES: Subcentimeter retroperitoneal lymph nodes. No adenopathy seen. VASCULAR: Normal caliber aorta. PELVIC VISCERA: Within normal limits. OSSEOUS STRUCTURES: Mild T12-L1 disc degeneration. No acute findings. CT/CT abdomen pelvis wo con IMPRESSION: 1. There is an 8 mm calculus in the left proximal ureter. Moderate hydroureteronephrosis proximal to this. 2. Bilateral renal calculi. Mild right hydronephrosis, without evidence of radiopaque calculi. 3. Apparent fat-containing lesion in the right liver lobe. This can be further characterized with ultrasound.
[2020-06-26] MEDS: Ketorolac Tromethamine 30 MG/ML VIAL IVPUSH (12:23)
[2020-06-26] MEDS: 0.9 % Sodium Chloride 1,000 ML 999 ML IV ×2 (12:24→14:20)
[2020-06-26 12:44] LABS: Glucose Urine UA 250 MG/DL (NEG); Leukocyte Esterase Urine NEG (NEG); Nitrite Urine NEG (NEG); Urine Blood 2+ (NEG); Urine Ketones NEG (NEG); Urine Protein 1+ MG/DL (NEG-TRACE)
[2020-06-26 12:46] LABS: Appearance Urine CLEAR; Color Urine YELLOW; MANUAL DIFF FLAG NO
[2020-06-26 12:47] LABS: Basophils Percent Auto 0.2 % (0-2); Eosinophils Absolute Auto 0.1 X10*3/uL (0.0-0.4); Eosinophils Percent Auto 1.8 % (0-4); Hematocrit 35.4 % (42-52); Hemoglobin 11.8 g/dl (14.0-18.0); Imm Gran Abs Auto 0.01 X10*3/uL (0.00-0.03); Imm Gran Pct Auto 0.2 % (0.0-0.4); Lymphocytes Absolute Auto 1.2 X10*3/uL (1.2-4.9); Lymphocytes Percent Auto 21.3 % (20-40); Mean Corpuscular HGB Conc 33.3 g/dl (31.0-36.0); Mean Corpuscular Hemoglobin 28.5 pg (27.0-33.0); Mean Corpuscular Volume 85.5 fL (80-98); Mean Platelet Volume 10.6 fL (9.4-12.4); Monocytes Absolute Auto 0.5 X10*3/uL (0.1-1.2); Monocytes Percent Auto 8.7 % (2-11); Neutrophils Absolute Auto 3.8 X10*3/uL (2.0-8.3); Neutrophils Percent Auto 67.8 % (45-73); Platelet Count 139 X10*3/uL (160-400); Red Blood Count 4.14 X10*6/uL (4.60-5.80); Red Cell Distribution Width 13.1 % (11.0-16.0); White Blood Count 5.5 X10*3/uL (4.8-10.8)
--- NOTE | 2020-06-26 12:47 | ED_ITS ---
HPI - Abdominal Pain General Chief Complaint: Abdominal Pain Stated Complaint: abd pain Time Seen by Provider: 06/26/20 10:55 Source: patient, RN notes reviewed and old records reviewed Mode of arrival: ambulatory Limitations: no limitations History of Present Illness HPI narrative: 44 year old male with past medical history of MRI with cardiac stents, diabetes, hypertension, hyperlipidemia, asthma, renal calculi. Diagnosed with COVID last month. Patient is presenting today with left abdominal pain radiating to his back. Patient reports he has a history of kidney stones and has passed kidney stone at home on 06/23. Patient has been feeling like this for last few days, worsened today. Able to urinate well. Denies any fever chills. Denies any CP, SOB with or without exertion, PND. Reports that he is able to go to the bathroom normally denies nausea, vomiting, constipation or diarrhea. Pertinent past history: kidney stones and myocardial infarction Onset (ago): day(s) Pain Consistency: intermittent Location: L flank Severity: moderate Quality: stabbing and aching Related Data Previous Rx's Medication Instructions Recorded albuterol sulfate 2 puff INHALATION Q4-6H PRN #6.7 g 05/21/20 azithromycin See Rx Instructions .ROUTE 05/21/20 .COMPLEX #6 tab benzonatate [Tessalon Perles] 100 mg PO TID PRN #14 cap 05/21/20 cyclobenzaprine 5 mg PO TID PRN #14 tab 05/29/20 doxycycline hyclate 100 mg PO BID #14 tab 05/29/20 ondansetron HCl [Zofran] 4 mg PO Q8H PRN #5 tab 05/29/20 prednisone 40 mg PO DAILY #10 tab 05/29/20 Allergies Allergy/AdvReac Type Severity Reaction Status Date / Time No Known Allergies Allergy Verified 06/26/20 10:49 [No Known Allergies*] Review of Systems Review of Systems Constitutional : No Weight loss, No Fever, No Chills, No Night Sweats, No Fatigue, No Malaise ENT/Mouth : No Hearing loss, No Ear Pain, No Nasal Congestion, No Sinus Pain, No Hoarseness, No sore throat, No Rhinorrhea, No Swallowing Difficulty Eyes: No Eye Pain, No Swelling, No Redness, No Foreign Body, No Discharge, No Vision Changes Cardiovascular : No Chest Pain, No SOB, No Dyspnea on Exertion, No Orthopnea, No Edema, No Palpitations Respiratory : No Cough, No Sputum, No Wheezing, No Smoke Exposure, No Dyspnea Gastrointestinal : No Nausea, No Vomiting, No Diarrhea, No Constipation, abdominal Pain, No Hematochezia, No Melena Genitourinary : no irregular bleeding, No Dysuria, No Urinary Frequency, No Hematuria, No Urinary Incontinence, No Urgency, No Flank Pain, No Urinary Flow Changes, No Hesitancy Musculoskeletal : No joint pain, No Myalgias, No Joint Swelling Skin : No Skin Lesions, No rash Neuro : No Weakness, No Numbness, No Paresthesias, No Loss of Consciousness, No Dizziness, No Headache Psych : No Anxiety/Panic, No Depression, No SI/HI/AH/VH, No Social Issues, Heme/Lymph: No Bruising, No Bleeding,No Lymphadenopathy Endocrine : No Polyuria, No Polydipsia, No Temperature Intolerance Yes all other systems are reviewed and are negative Physical Exam Vital Signs: Vital Signs: Last Vital Signs Temp 97.8 F 06/26/20 16:12 Pulse 75 06/26/20 16:12 Resp 18 06/26/20 16:12 BP 126/85 06/26/20 16:12 Pulse Ox 100 06/26/20 16:12 Body Mass Index 26.6 Const: General: cooperative, healthy appearing and comfortable Nutritional Appearance: average body habitus Orientation/consciousness: patient oriented x3 Limitations: no limitations HENMT: Head: Yes normal to inspection Ears: hearing grossly normal bilaterally General nose exam: Normal external nose present Face and sinus: Yes normal facial exam Mouth: Normal oral and palatal mucosa present Throat: Yes posterior oropharynx normal Eyes: General: appearance normal, both eyes and all related structures Eyelids: Yes eyelids normal Conjunctivae: conjunctivae normal Sclerae: sclerae normal Pupils: Equal, round and reactive pupils present Neck: Neck: Yes normal visual inspection, Yes full ROM, Yes no lym phadenopathy, Yes trachea midline and Yes supple Thyroid: Thyroid normal Lymphatic: no lymphadenopathy noted Chest: Chest palpation & inspection: normal inspection of the chest Resp: Effort & Inspection: normal respiratory effort and able to speak in complete sentences Auscultation: clear to auscultation bilaterally Cardio: Jugular venous distension: no JVD Rate: regular rate Rhythm: regular rhythm Heart sounds: S1 normal heart sound present, S2 normal heart sound present, no gallops, no murmurs and no rubs Peripheral pulses: Peripheral pulses 2+ throughout GI: Inspection: Yes normal to inspection and Yes distended Palpation (GI): No hepatosplenomegaly present and No Rebound tenderness present Percussion: Yes normal to percussion Auscultation: normal bowel sounds Back/Spine/Pelvis: Cervical Spine: cervical ROM normal and No cervical muscular tenderness Thoracic/Lumbar Spine: thoracic and lumbar spine normal to inspection Skin: General skin exam: no rashes or lesions noted, elasticity normal and t urgor normal Neuro: General: patient oriented x3 Cranial nerves: Yes Equal, round and reactive pupils present Extrem: General: Yes normal to inspection, Yes full ROM and Yes capillary refill normal Psych: Appearance: grossly normal Mental Status: mental status grossly normal Speech and movement: Normal speech and movement present Affect: normal affect Attitude: cooperative Thought process: Normal thought process present Insight: Good insight present (Psych) Course Course Course Narrative: 44-year-old male here today for left abdominal pain that is radiating to left flank and back. Will order fluids, Toradol, CBC and CMP. Will get abdominal CT with contrast. Reevaluation(s) Reevaluation #1: Chemistry back BUN [address] scan with contrast and will get plain CT without contrast. Patient left flank pain at 6/10 will medicate him with morphine. Time: 15:32 Reevaluation #2: Patient feels comfortable. 2 L of fluid given. I will recheck his kidney functions. Patient denies any others symptoms. Awaiting for CT scan results. Time: 16:02 Reevaluation #3: CT scan the results back: 1) there is a 8 mm calculus in the left proximal ureter. Moderate hydro ureteral nephrosis proximal to this. Call placed to Urology, awaiting response. Patient is voiding adequate amount after receiving 2 L of fluids. Time: 16:55 Additional Reevaluation(s): Spoke with Dr. Fields patient will be admitted, he will need to be stented. Patient was NPO since 9:00 a.m. spoke with patient and he is agreeable to plan of care. He verbalizes understanding of instructions. He was given the opportunity to ask questions and all questions answered. Patient is able to void without difficulties. Improved kidney functions is BUN 23 creatinine 1.75. Awaiting to go to surgery MDM - Abdominal Pain Medical Records Attestation: I reviewed the patient's medical records. Lab Data Attestation: I reviewed the patient's lab results. Result diagrams: 06/26/20 12:19 06/26/20 15:48 Labs: Lab Results 06/26/20 06/26/20 06/26/20 Range/Units 12:19 12:19 12:19 WBC 5.5 (4.8-10.8) X10*3/uL RBC 4.14 L (4.60-5.80) X10*6/uL Hgb 11.8 L (14.0-18.0) g/dl Hct 35.4 L (42-52) % MCV 85.5 (80-98) fL MCH 28.5 (27.0-33.0) pg MCHC 33.3 (31.0-36.0) g/dl RDW 13.1 (11.0-16.0) % Plt Count 139 L (160-400) X10*3/uL MPV 10.6 (9.4-12.4) fL Immature Gran % (Auto) 0.2 (0.0-0.4) % Neut % (Auto) 67.8 (45-73) % Lymph % (Auto) 21.3 (20-40) % [place] % (Auto) 8.7 (2-11) % Eos % (Auto) 1.8 (0-4) % Baso % (Auto) 0.2 (0-2) % Lymph # (Auto) 1.2 (1.2-4.9) X10*3/uL [place] # (Auto) 0.5 (0.1-1.2) X10*3/uL Eos # (Auto) 0.1 (0.0-0.4) X10*3/uL Baso # (Auto) 0.0 (0.0-0.2) X10*3/uL Abs Immat Gran (auto) 0.01 (0.00-0.03) X10*3/uL Absolute Neuts (auto) 3.8 (2.0-8.3) X10*3/uL Absolute Nucleated RBC 0.000 (0.0-0.012) X10*3/uL Nucleated RBC % (auto) 0.0 (0.0-0.2) /100WBC Sodium 139 (135-145) mmol/L Potassium 4.9 (3.3-5.1) mmol/L Chloride 104 (96-108) mmol/L Carbon Dioxide 27 (22-29) mmol/L Anion Gap 13 (12-20) BUN 26 H (9-16) mg/dL Creatinine 2.04 H (0.5-1.4) mg/dL Estim Creat Clear Calc 40.1 Estimated GFR 36 Random Glucose 180 H (60-115) mg/dL Calcium 9.3 (8.4-10.2) mg/dL Total Bilirubin 0.5 (0.0-1.0) mg/dL AST 28 (5-37) U/L ALT 51 H (0-40) U/L Alkaline Phosphatase 114 (39-117) U/L Total Protein 7.3 (6.5-8.0) g/dL Albumin 4.5 (3.5-5.0) g/dL Urine Color YELLOW Urine Appearance CLEAR Urine pH 6.0 (5.0-8.0) Ur Specific [place] 1.020 (1.005-1.025) Urine Protein 1+ H (NEG-TRACE) MG/DL Urine Glucose (UA) 250 H (NEG) MG/DL Urine Ketones NEG (NEG) MG/DL Urine Blood 2+ H (NEG) Urine Nitrite NEG (NEG) Ur Leukocyte Esterase NEG (NEG) Urine RBC 10-14 H (0) /HPF Urine WBC 1-4 (0-4) /HPF Ur Squamous Epith Cells NONE /LPF Urine Bacteria NONE /LPF 06/26/20 Range/Units 15:48 WBC (4.8-10.8) X10*3/uL RBC (4.60-5.80) X10*6/uL Hgb (14.0-18.0) g/dl Hct (42-52) % MCV (80-98) fL MCH (27.0-33.0) pg MCHC (31.0-36.0) g/dl RDW (11.0-16.0) % Plt Count (160-400) X10*3/uL MPV (9.4-12.4) fL Immature Gran % (Auto) (0.0-0.4) % Neut % (Auto) (45-73) % Lymph % (Auto) (20-40) % [place] % (Auto) (2-11) % Eos % (Auto) (0-4) % Baso % (Auto) (0-2) % Lymph # (Auto) (1.2-4.9) X10*3/uL [place] # (Auto) (0.1-1.2) X10*3/uL Eos # (Auto) (0.0-0.4) X10*3/uL Baso # (Auto) (0.0-0.2) X10*3/uL Abs Immat Gran (auto) (0.00-0.03) X10*3/uL Absolute Neuts (auto) (2.0-8.3) X10*3/uL Absolute Nucleated RBC (0.0-0.012) X10*3/uL Nucleated RBC % (auto) (0.0-0.2) /100WBC Sodium (135-145) mmol/L Potassium (3.3-5.1) mmol/L Chloride (96-108) mmol/L Carbon Dioxide (22-29) mmol/L Anion Gap (12-20) BUN 23 H (9-16) mg/dL Creatinine 1.75 H (0.5-1.4) mg/dL Estim Creat Clear Calc 46.8 Estimated GFR 43 Random Glucose (60-115) mg/dL Calcium (8.4-10.2) mg/dL Total Bilirubin (0.0-1.0) mg/dL AST (5-37) U/L ALT (0-40) U/L Alkaline Phosphatase (39-117) U/L Total Protein (6.5-8.0) g/dL Albumin (3.5-5.0) g/dL Urine Color Urine Appearance Urine pH (5.0-8.0) Ur Specific [place] (1.005-1.025) Urine Protein (NEG-TRACE) MG/DL Urine Glucose (UA) (NEG) MG/DL Urine Ketones (NEG) MG/DL Urine Blood (NEG) Urine Nitrite (NEG) Ur Leukocyte Esterase (NEG) Urine RBC (0) /HPF Urine WBC (0-4) /HPF Ur Squamous Epith Cells /LPF Urine Bacteria /LPF Imaging Data CT scan - abdomen: Attestation: I personally reviewed and interpreted this imaging study as follows: Radiologist's impression: FINDINGS: LUNG BASES: The visualized lung bases are unremarkable. LIVER, GALLBLADDER, AND BILIARY TREE: The liver is normal in size, shape, and attenuation. Stable low-attenuation focus in the right lobe, measures fat density, suggestive of a fatty focus. No focal hepatic lesion or biliary ductal dilatation is present. The gallbladder is unremarkable with no evidence of radiopaque gallstones, gallbladder wall thickening, or obvious pericholecystic inflammatory changes. PANCREAS: Unremarkable. SPLEEN: Unremarkable. ADRENAL GLANDS: Unremarkable. KIDNEYS AND URETERS: 8 mm calculus in the left proximal ureter (at the level of the L3-L4 disc space). Moderate hydroureteronephrosis proximal to this. There is mild dilatation of the ureter distal to the calculus as well. Multiple small left renal calculi, the largest measuring 3 mm in the upper pole. [id number] left perinephric stranding. 2 mm calculus in the right renal lower pole. Mild right hydronephrosis. No calculi or filling defect is evident in the right ureter. BLADDER: Unremarkable. GASTROINTESTINAL TRACT: The small and large bowel are unremarkable. The appendix is unremarkable. ABDOMINAL WALL: No significant hernia is appreciated. LYMPH NODES: Subcentimeter retroperitoneal lymph nodes. No adenopathy seen. VASCULAR: Normal caliber aorta. PELVIC VISCERA: Within normal limits. OSSEOUS STRUCTURES: Mild T12-L1 disc degeneration. No acute findings. CT/CT abdomen pelvis wo con IMPRESSION: 1. There is an 8 mm calculus in the left proximal ureter. Moderate hydroureteronephrosis proximal to this. 2. Bilateral renal calculi. Mild right hydronephrosis, without evidence of radiopaque calculi. 3. Apparent fat-containing lesion in the right liver lobe. This can be further characterized with ultrasound. Discharge Plan Discharge Clinical Impression: Renal calculi, Hydronephrosis concurrent with and due to calculi of kidney and ureter Patient Disposition: Admitted As Inpatient [facility] Past Medical History Medical History Asthma Elevated cholesterol Hypertension Renal calculi Surgical History Hx of heart artery stent Social History Social History Alcohol intake: never Smoking Status: Never smoker Advance Directives: No Advance Directives Information Provided: No
[2020-06-26 13:08] LABS: Alanine Aminotransferase 51 U/L (0-40); Albumin Level 4.5 g/dL (3.5-5.0); Alkaline Phosphatase 114 U/L (39-117); Anion Gap 13 (12-20); Aspartate Amino Transferase 28 U/L (5-37); Bilirubin Total 0.5 mg/dL (0.0-1.0); Blood Urea Nitrogen 26 mg/dL (9-16); Calcium 9.3 mg/dL (8.4-10.2); Carbon Dioxide 27 mmol/L (22-29); Chloride 104 mmol/L (96-108); Creatinine Clr Calc Pharmacy 40.1; Estimated Glomerular Filt Rate 36; Glucose Random 180 mg/dL (60-115); Potassium 4.9 mmol/L (3.3-5.1); Sodium 139 mmol/L (135-145); Total Protein 7.3 g/dL (6.5-8.0)
[2020-06-26] MEDS: ondansetron HCL 4 MG/2 ML VIAL IVPUSH (14:19)
[2020-06-26] MEDS: Morphine Sulfate 4 MG/ML CARTRIDGE IVPUSH (14:19)
[2020-06-26 16:24] LABS: Blood Urea Nitrogen 23 mg/dL (9-16); Creatinine Clr Calc Pharmacy 46.8; Estimated Glomerular Filt Rate 43
--- NOTE | 2020-06-26 17:27 | P.CNUR_ITS ---
History of Present Illness Consult details Consult date: 06/26/20 Narrative: 44-year-old male Known stone former Last intervention 5 years ago in [place] Admitted through emergency room for persistent nausea and left-sided flank pain CT scan with 10 mm UPJ stone Mild to moderate hydronephrosis Elevated creatinine 2.0 Discussed options with patient Plan for cystoscopy, retrograde, stent placement on the left side Review of Systems Constitutional: Constitutional: Denies chills and Denies fever(s) Cardiovascular: Cardiovascular: Reports no additional cardiovascular complaints and Denies syncope Respiratory: Respiratory: Denies cough Gastrointestinal: Gastrointestinal: Denies abdominal pain and Denies heartburn Genitourinary: Genitourinary: Reports as per HPI and Denies change in libido Neurologic: Denies syncope Psychiatric: Psychiatric: Denies change in libido Endocrine: Endocrine: Denies change in libido [facility] Past Medical History Medical History Asthma Elevated cholesterol Hypertension Renal calculi Surgical History Surgical History Hx of heart artery stent Social History Social History Alcohol intake: never Smoking Status: Never smoker Advance Directives: No Advance Directives Information Provided: No Meds Allergies Allergy/AdvReac Type Severity Reaction Status Date / Time No Known Allergies Allergy Verified 06/26/20 10:49 [No Known Allergies*] Active Medications: Current Medications Generic Name Dose Route Start Last Admin Trade Name Freq PRN Reason Stop Dose Admin Levofloxacin 500 mg 06/26/20 17:20 Levofloxacin 500 Mg Tablet PO 06/26/20 17:21 ONCE ONE Physical Exam Vital Signs: Vital Signs: Last Vital Signs Temp 97.8 F 06/26/20 16:12 Pulse 75 06/26/20 16:12 Resp 18 06/26/20 16:12 BP 126/85 06/26/20 16:12 Pulse Ox 100 06/26/20 16:12 Body Mass Index 26.6 Const: General: cooperative, healthy appearing, comfortable and no acute distress Orientation/consciousness: patient oriented x3 HENMT: Face and sinus: Yes normal facial exam Mouth: moist mucous membranes Neck: Neck: Yes normal visual inspection, Yes full ROM and Yes trachea midline Chest: Chest palpation & inspection: normal inspection of the chest Resp: Effort & Inspection: normal respiratory effort, able to speak in complete sentences and no respiratory distress GI: Inspection: Yes normal to inspection Back/Spine/Pelvis: Cervical Spine: normal cervical lordosis Thoracic/Lumbar Spine: thoracic and lumbar spine normal to inspection Skin: General skin exam: no rashes or lesions noted Neuro: General: patient oriented x3, gait normal, tone normal and moves all extremities Extrem: General: Yes normal to inspection and Yes capillary refill normal Results Labs Result diagrams: 06/26/20 12:19 06/26/20 15:48 Labs: Abnormal lab results 06/26/20 06/26/20 06/26/20 Range/Units 12:19 12:19 12:19 RBC 4.14 L (4.60-5.80) X10*6/uL Hgb 11.8 L (14.0-18.0) g/dl Hct 35.4 L (42-52) % Plt Count 139 L (160-400) X10*3/uL BUN 26 H (9-16) mg/dL Creatinine 2.04 H (0.5-1.4) mg/dL Random Glucose 180 H (60-115) mg/dL ALT 51 H (0-40) U/L Urine Protein 1+ H (NEG-TRACE) MG/DL Urine Glucose (UA) 250 H (NEG) MG/DL Urine Blood 2+ H (NEG) Urine RBC 10-14 H (0) /HPF 06/26/20 Range/Units 15:48 RBC (4.60-5.80) X10*6/uL Hgb (14.0-18.0) g/dl Hct (42-52) % Plt Count (160-400) X10*3/uL BUN 23 H (9-16) mg/dL Creatinine 1.75 H (0.5-1.4) mg/dL Random Glucose (60-115) mg/dL ALT (0-40) U/L Urine Protein (NEG-TRACE) MG/DL Urine Glucose (UA) (NEG) MG/DL Urine Blood (NEG) Urine RBC (0) /HPF Short CBC 06/26/20 Range/Units 12:19 WBC 5.5 (4.8-10.8) X10*3/uL Hgb 11.8 L (14.0-18.0) g/dl Hct 35.4 L (42-52) % Plt Count 139 L (160-400) X10*3/uL BMP 06/26/20 06/26/20 12:19 15:48 Sodium 139 Potassium 4.9 Chloride 104 Carbon Dioxide 27 BUN 26 H 23 H Creatinine 2.04 H 1.75 H Calcium 9.3 Liver Function 06/26/20 Range/Units 12:19 Total Bilirubin 0.5 (0.0-1.0) mg/dL AST 28 (5-37) U/L ALT 51 H (0-40) U/L Alkaline Phosphatase 114 (39-117) U/L Albumin 4.5 (3.5-5.0) g/dL Urine 06/26/20 Range/Units 12:19 Urine Color YELLOW Urine Appearance CLEAR Urine pH 6.0 (5.0-8.0) Ur Specific [place] 1.020 (1.005-1.025) Urine Protein 1+ H (NEG-TRACE) MG/DL Urine Glucose (UA) 250 H (NEG) MG/DL All other labs normal. KIDNEYS AND URETERS: 8 mm calculus in the left proximal ureter (at the level of the L3-L4 disc space). Moderate hydroureteronephrosis proximal to this. There is mild dilatation of the ureter distal to the calculus as well. Multiple small left renal calculi, the largest measuring 3 mm in the upper pole. [id number] left perinephric stranding. Assessment and Plan (1) Renal calculi: Status: Acute Ureteroscopy We discussed the nature of the decision and reasonable alternatives for performing the above surgery. Interventions include chemical dissolution, ESWL, ureteroscopy with laser lithotripsy and stent placement, PCNL. Options such as medical therapy were discussed. The relative uncertainties and benefits related to each alternate procedure were adequately discussed. General surgical risks including, but not limited to, pain, bleeding, infection, myocardial infarction, pulmonary embolus, deep vein thrombosis and cerebrovascular accident which may result in further hospitalization were discussed. Full disclosure of the procedure as well as all major risks, benefits and complications were discussed including but not limited to damage to the urethra, bladder and kidney infection, damage to the ureter, stent migration or malposition, scarring to the renal pelvis, remnant stone fragments, subsequent stone passage with need for secondary procedures. The overall secondary procedure rate is approximately 10-15%. The success rate of the procedure was discussed. Success of the procedure in the short-term does not necessarily guarantee that long-term success will be maintained. Suitable follow up will need to be maintained. The patient showed understanding of discussion and wishes to proceed with - cystoscopy, left retrograde and left stent placement
[2020-06-26] MEDS: levoFLOXacin 500 MG TABLET PO (17:51)
--- NOTE | 2020-06-26 18:14 | MHC.SHP ---
Pre-Procedural Eval Section A The patient is an INPATIENT: No Changes since office visit: No Cold of Flu in the past 2 weeks, No New Medical Problems, No Changes in Medication and No Patient answered all questions The History & Physical has been completed within 30 days and I have reviewed it.: Yes Section B Chief Complaint: abd pain Allergies: Allergies Allergy/AdvReac Type Severity Reaction Status Date / Time No Known Allergies Allergy Verified 06/26/20 10:49 [No Known Allergies*] Plan Diagnosis/Plan: Unchanged (Left retrograde stent placement) I have reviewed the history and physical and performed a pertinent physical examination on my patient. No changes have occurred unless specified.
--- NOTE | 2020-06-26 18:29 | HO.ANESPROP2 ---
FORMERLY [facility], [facility] Active Problems Active Problems: All Active Problems (Updated 06/26/20 @ 17:13 by RADHA Gonzalez) Hydronephrosis concurrent with and due to calculi of kidney and ureter (Acute) Myocardial infarction (Acute) Diabetes (Acute) Hx of heart artery stent (Acute) Renal calculi (Acute) Hypertension (Acute) Elevated cholesterol (Acute) Asthma (Acute) COVID-19 (Acute) Past Medical History Medical History Asthma Elevated cholesterol Hypertension Renal calculi Surgical History Surgical History Hx of heart artery stent Social History Social History Alcohol intake: never Smoking Status: Never smoker Advance Directives: No Advance Directives Information Provided: No Meds Allergies Allergy/AdvReac Type Severity Reaction Status Date / Time No Known Allergies Allergy Verified 06/26/20 10:49 [No Known Allergies*] Exam Exam Date and Time: June 26, [id number] Height,Weight and Vital Signs: Height 5 ft 5 in Weight 72.575 kg Last Vital Signs Temp 97.8 F 06/26/20 16:12 Pulse 75 06/26/20 16:12 Resp 18 06/26/20 16:12 BP 126/85 06/26/20 16:12 Pulse Ox 100 06/26/20 16:12 Pertinent Lab Results Pertinent Lab Results: Laboratory Tests 06/26/20 06/26/20 06/26/20 12:19 12:19 12:19 WBC 5.5 RBC 4.14 L Hgb 11.8 L Hct 35.4 L MCV 85.5 MCH 28.5 MCHC 33.3 RDW 13.1 Plt Count 139 L MPV 10.6 Immature Gran % (Auto) 0.2 Neut % (Auto) 67.8 Lymph % (Auto) 21.3 [place] % (Auto) 8.7 Eos % (Auto) 1.8 Baso % (Auto) 0.2 Lymph # (Auto) 1.2 [place] # (Auto) 0.5 Eos # (Auto) 0.1 Baso # (Auto) 0.0 Abs Immat Gran (auto) 0.01 Absolute Neuts (auto) 3.8 Absolute Nucleated RBC 0.000 Nucleated RBC % (auto) 0.0 Sodium 139 Potassium 4.9 Chloride 104 Carbon Dioxide 27 Anion Gap 13 BUN 26 H Creatinine 2.04 H Estim Creat Clear Calc 40.1 Estimated GFR 36 Random Glucose 180 H Calcium 9.3 Total Bilirubin 0.5 AST 28 ALT 51 H Alkaline Phosphatase 114 Total Protein 7.3 Albumin 4.5 Urine Color YELLOW Urine Appearance CLEAR Urine pH 6.0 Ur Specific [place] 1.020 Urine Protein 1+ H Urine Glucose (UA) 250 H Urine Ketones NEG Urine Blood 2+ H Urine Nitrite NEG Ur Leukocyte Esterase NEG Urine RBC 10-14 H Urine WBC 1-4 Ur Squamous Epith Cells NONE Urine Bacteria NONE 06/26/20 15:48 WBC RBC Hgb Hct MCV MCH MCHC RDW Plt Count MPV Immature Gran % (Auto) Neut % (Auto) Lymph % (Auto) [place] % (Auto) Eos % (Auto) Baso % (Auto) Lymph # (Auto) [place] # (Auto) Eos # (Auto) Baso # (Auto) Abs Immat Gran (auto) Absolute Neuts (auto) Absolute Nucleated RBC Nucleated RBC % (auto) Sodium Potassium Chloride Carbon Dioxide Anion Gap BUN 23 H Creatinine 1.75 H Estim Creat Clear Calc 46.8 Estimated GFR 43 Random Glucose Calcium Total Bilirubin AST ALT Alkaline Phosphatase Total Protein Albumin Urine Color Urine Appearance Urine pH Ur Specific [place] Urine Protein Urine Glucose (UA) Urine Ketones Urine Blood Urine Nitrite Ur Leukocyte Esterase Urine RBC Urine WBC Ur Squamous Epith Cells Urine Bacteria Airway Mallampati Class: II TM Dist: >3cm Neck ROM: Full Loose/Missing/Broken Teeth: No Heart: RRR Lungs: CTA Assessment and Plan Assessment Anesthesia Assessment: Anesthesia Plan Discussed Final Anesthetic Review NPO: Yes ASA Class: III Final Preanesthetic Review: No Changes in Pt Med Stat, Meds/Allgs Chart Reviewed, Consent Obtained/Reviewed and Anes Risks/Benef Reviewed Patient Risk: High Procedure Risk: Low Anesthetic Plan Anesthetic Plan: MAC: Disposition: Standard PACU
--- NOTE | 2020-06-26 19:09 | P.BOP_ITS ---
Brief Operative Note Date of Service: 06/26/20 Pre-op diagnosis: Left UPJ stone Post-op diagnosis: same Procedure: Left retrograde stent placement Implants: Six [place] by 22 cm stent Surgeon: Moi Moreira MD Anesthesia: MAC Estimated blood loss (mL): 0 Pathology: none sent Condition: stable Disposition: same day
[2020-06-26] MEDS: Phenazopyridine HCL 100 MG TABLET PO (19:26)
--- NOTE | 2020-07-02 08:23 | P.OP_ITS ---
Operative Note Operative Note Date of Service: 06/26/20 Narrative: PreOperative Diagnosis: Left UPJ stone Post Operative Diagnosis: Left UPJ stone Procedure: Cystoscopy, left retrograde, left stent placement Surgeon: Dr Moi Moreira Anesthesia: Sedation Indications for procedure: This is a 44-year-old male. Seen in the emergency room today. Presented for left flank pain. Imaging showed 8 mm left UPJ stone. Will be undergoing stenting with follow-up definitive procedure. Procedure: After informed consent was verified the patient was brought to the operating room and placed in a supine position. Anesthesia was administered per protocol. The patient was placed in modified dorsal lithotomy position and prepped and draped in sterile fashion. Safety pause time-out was performed. Twenty-two Micronesian cystoscope inserted per urethra. No abnormality noted in the anterior or posterior urethra. Both ureteric orifices normal position of bladder. Left ureteric orifice was seen cannulated and retrograde examination performed. Filling defect seen at the left UPJ. Sensor guidewire placed up into the renal pelvis. A 6 Micronesian by 24 cm double-J stent placed without difficulty good coil seen within the renal pelvis and the bladder. Bladder was emptied at the completion of the procedure. He tolerated procedure well and was extubated in operating room in moved in stable condition to the recovery area. Pathology: none Drains: 6 Fr x 24 cm JJ stent
[2020-10-28 08:48] LABS: VBG Base Excess -4.9 mmol/L; VBG HCO3 20 mmol/L (22-26); VBG pCO2 40 mmHg; VBG pH 7.31 (7.32-7.43); VBG pO2 49 mmHg
== END 2020-06-26 20:11 | disposition home or self-care (01) ==
PROVIDERS: Nurse Practitioner Family; Urology; Emergency Provider Emergency Medicine; PCP Internal Medicine
PROC: (CPT 52332; principal; 2020-06-26 17:50)
DX: N13.2 Hydronephrosis with renal and ureteral calculous obstruction (principal); E11.9 Type 2 diabetes mellitus without complications; I10 Essential (primary) hypertension; E78.5 Hyperlipidemia, unspecified; J45.909 Unspecified asthma, uncomplicated; Z87.442 Personal history of urinary calculi
CPT/HCPCS: 52332; 36415; 74176; 80053; 81001; 82565; 82803; 84520; 85025; 96361; 96365; 96374; 96375; 96376; 99284; 99285; C1758; C1769; C2617; J1885; J2270; J2405; J3010; Q9967

== ENCOUNTER 2020-07-23 07:02 | Day surgery (SDC) | payer MEDICAID, SELFPAY ==
[2020-07-17 12:43] VITALS: BMI 26.6
--- NOTE | 2020-07-22 12:07 | HO.ANESPROP2 ---
Documented by User: Shanta May 07/22/20 12:11 HPI - Anesthesia Eval Consult details Narrative: 44yo M for Left ESWL with Stent Removal s/p Cysto, stent with MAC 06/26/20 PMF Active Problems Active Problems: All Active Problems (Updated 07/17/20 @ 12:43 by Holly Hollingsworth) COVID-19 (Acute) Diabetes (Acute) Myocardial infarction (Acute) Hx of heart artery stent (Acute) Renal calculi (Acute) Hypertension (Acute) Elevated cholesterol (Acute) Asthma (Acute) Past Medical History Medical History (Updated 07/23/20 @ 08:18 by Elsy Chew) Anemia Arthritis Asthma CAD (coronary artery disease) Diabetes Elevated cholesterol ETOH abuse History of COVID-19 Hypertension Low back pain Myocardial infarction Neck pain Renal calculi Renal insufficiency Surgical History Surgical History History of lithotripsy Hx of heart artery stent S/P cystoscopy with ureteral stent placement Social History Social History Smoking Status: Never smoker Use of substances other than those prescribed or required for medical reasons: No Are you DNR?: No Advance Directives: No Advance Directives Information Provided: No Advance Directives on File: No Meds Allergies Allergy/AdvReac Type Severity Reaction Status Date / Time No Known Allergies Allergy Verified 07/17/20 12:39 [No Known Allergies*] Home Medications Medication Instructions Recorded Confirmed Last Taken Type acetaminophen 1 - 2 tab PO Q8H PRN 07/17/20 07/17/20 Unknown History albuterol sulfate [ProAir HFA] 2 puff INHALATION Q4H PRN 07/17/20 07/17/20 Unknown History aspirin 1 tab PO DAILY 07/17/20 07/17/20 07/19/20 History glipizide 1 tab PO QAM 07/17/20 07/17/20 Unknown History losartan 1 tab PO DAILY 07/17/20 07/17/20 Unknown History metformin 2 tab PO BID 07/17/20 07/17/20 Unknown History rosuvastatin 1 tab PO DAILY 07/17/20 07/17/20 Unknown History Exam Exam Date and Time: July 22, 2020 1207 Height,Weight and Vital Signs: Height 5 ft 5 in Weight 72.575 kg Pertinent Lab Results Pertinent Lab Results: Laboratory Tests 06/26/20 06/26/20 06/26/20 12:19 12:19 15:48 WBC 5.5 Hgb 11.8 L Hct 35.4 L Plt Count 139 L Sodium 139 Potassium 4.9 Chloride 104 Carbon Dioxide 27 BUN 23 H Creatinine 1.75 H Narrative Narrative: EKG 05/2020 Vent. Rate : 083 BPM Atrial Rate : 083 BPM P-R Int : 126 ms QRS Dur : 074 ms QT Int : 354 ms P-R-T Axes : 046 018 021 degrees QTc Int : 415 ms Normal sinus rhythm Normal ECG When compared with ECG of 05-NOV-2019 06:40, No significant change was found Assessment and Plan Assessment Anesthesia Assessment: Chart Reviewed Documented by User: Elsy Chew 07/23/20 08:19 [facility] Past Medical History Medical History (Updated 07/23/20 @ 08:18 by Elsy Chew) Anemia Arthritis Asthma CAD (coronary artery disease) Diabetes Elevated cholesterol ETOH abuse History of COVID-19 Hypertension Low back pain Myocardial infarction Neck pain Renal calculi Renal insufficiency Family History Family history of problems with anesthesia: No Surgical History Surgical History History of lithotripsy Hx of heart artery stent S/P cystoscopy with ureteral stent placement History of Problems with Anesthesia: No Social History Social History Smoking Status: Never smoker Use of substances other than those prescribed or required for medical reasons: No Are you DNR?: No Advance Directives: No Advance Directives Information Provided: No Advance Directives on File: No Meds Allergies Allergy/AdvReac Type Severity Reaction Status Date / Time No Known Allergies Allergy Verified 07/17/20 12:39 [No Known Allergies*] Home Medications Medication Instructions Recorded Confirmed Last Taken Type acetaminophen 1 - 2 tab PO Q8H PRN 07/17/20 07/17/20 Unknown History albuterol sulfate [ProAir HFA] 2 puff INHALATION Q4H PRN 07/17/20 07/17/20 Unknown History aspirin 1 tab PO DAILY 07/17/20 07/17/20 07/19/20 History glipizide 1 tab PO QAM 07/17/20 07/17/20 Unknown History losartan 1 tab PO DAILY 07/17/20 07/17/20 Unknown History metformin 2 tab PO BID 07/17/20 07/17/20 Unknown History rosuvastatin 1 tab PO DAILY 07/17/20 07/17/20 Unknown History Exam Height,Weight and Vital Signs: Vital Signs Temp Pulse Resp BP Pulse Ox 07/23/20 07:19 97 F 61 18 133/81 98 Pertinent Lab Results Pertinent Lab Results: Lab Results 07/23/20 07/23/20 Range/Units 07:32 07:46 WBC 5.6 (4.8-10.8) X10*3/uL RBC 3.89 L (4.60-5.80) X10*6/uL Hgb 11.2 L (14.0-18.0) g/dl Hct 33.7 L (42-52) % MCV 86.6 (80-98) fL MCH 28.8 (27.0-33.0) pg MCHC 33.2 (31.0-36.0) g/dl RDW 14.0 (11.0-16.0) % Plt Count 167 (160-400) X10*3/uL MPV 9.8 (9.4-12.4) fL Absolute Nucleated RBC 0.000 (0.0-0.012) X10*3/uL Nucleated RBC % (auto) 0.0 (0.0-0.2) /100WBC POC Glucose 105 (60-115) mg/dL Airway Mallampati Class: II TM Dist: >3cm Neck ROM: Full Heart: RRR Lungs: CTAB Assessment and Plan Assessment Anesthesia Assessment: Anesthesia Plan Discussed and Chart Reviewed Final Anesthetic Review NPO: Yes ASA Class: III Final Preanesthetic Review: No Changes in Pt Med Stat, Meds/Allgs Chart Reviewed, Consent Obtained/Reviewed and Anes Risks/Benef Reviewed Patient Risk: Intermediate Procedure Risk: Low Assessment/Block/Sedation in SS: Assess/Block/Sedation-SS Anesthetic Plan Anesthetic Plan: MAC: Disposition: Standard PACU
--- NOTE | ~2020-07-23 | XR_ITS ---
EXAMINATION: XR ABDOMEN KUB CLINICAL INDICATION: Kidney stones COMPARISON: Previous CT of the abdomen and pelvis June 2020 TECHNIQUE: AP view of the abdomen. FINDINGS: There is a left internal ureteral stent in satisfactory position. No stone is seen. The small bilateral renal stones seen by CT 06/26/2020 are not appreciated by KUB. There are right pelvic calcifications compatible with calcified phleboliths. Bowel gas pattern is normal. Bony structures are normal. XR/XR KUB IMPRESSION: Satisfactory position of left internal ureteral stent. No stone seen by KUB.
[2020-07-23 07:19] VITALS: BP 133/81; PULSE 61; RESP 18; TEMP 36.1; O2SAT 98
[2020-07-23 07:35] LABS: Glucose, Whole Blood 105 mg/dL (60-115)
[2020-07-23 07:52] LABS: Baso%MD 0.2 %; Eos%MD 2.2 %; Hematocrit 33.7 % (42-52); Hemoglobin 11.2 g/dl (14.0-18.0); IG%MD 0.2 %; Lymph%MD 28.7 %; Mean Corpuscular HGB Conc 33.2 g/dl (31.0-36.0); Mean Corpuscular Hemoglobin 28.8 pg (27.0-33.0); Mean Corpuscular Volume 86.6 fL (80-98); Mean Platelet Volume 9.8 fL (9.4-12.4); Mono%MD 5.7 %; Platelet Count 167 X10*3/uL (160-400); Red Blood Count 3.89 X10*6/uL (4.60-5.80); White Blood Count 5.6 X10*3/uL (4.8-10.8)
--- NOTE | 2020-07-23 08:09 | PC.NURSE ---
pt sts didnot need interpretor
--- NOTE | 2020-07-23 08:16 | MHC.SHP ---
Pre-Procedural Eval Section A The patient is an INPATIENT: No Changes since office visit: No Cold of Flu in the past 2 weeks, No New Medical Problems, No Changes in Medication and No Patient answered all questions The History & Physical has been completed within 30 days and I have reviewed it.: Yes Section B Chief Complaint: calculus of kidney Allergies: Allergies Allergy/AdvReac Type Severity Reaction Status Date / Time No Known Allergies Allergy Verified 07/17/20 12:39 [No Known Allergies*] Plan Diagnosis/Plan: Unchanged (left eswl with cysto stent removal) I have reviewed the history and physical and performed a pertinent physical examination on my patient. No changes have occurred unless specified.
[2020-07-23 08:29] LABS: Eosinophils Absolute Manual 0.1 X10*3/UL (0.0-0.8); Eosinophils Percent Manual 2 % (0-4); Lymphocytes Absolute Manual 1.3 X10*3/uL (0.6-4.8); Lymphocytes Percent Manual 24 % (20-40); Monocytes Absolute Manual 0.2 X10*3/uL (0.0-1.2); Monocytes Percent Manual 3 % (2-11); Neutrophils Percent Manual 71 % (45-73)
[2020-07-23 08:30] LABS: Band Neutrophils Percent 0 % (3-5); Platelet Estimate NORMAL (NORMAL); Platelet Morphology Comment NORMAL; RBC Morphology NORMAL
--- NOTE | 2020-07-23 09:07 | W.PM.OPN ---
Operative Note Operative Note Date of Service: 07/23/20 Narrative: PreOperative Diagnosis: Left Renal stones Post Operative Diagnosis: Left Renal stones Procedure: Left ESWL, cystoscopy with stent removal Surgeon: Dr Moi Moreira Anesthesia: mac/sedation Indications for procedure: They understand ESWL may be a staged procedure and subsequent intervention may be required based on imaging after ESWL. They also understand there is a risk of bleeding, infection, damage to adjacent organs. Procedure: After informed consent was verified the patient was brought to the operating room and placed in a supine position. Anesthesia was performed per protocol. Safety pause time-out was performed. Imaging was in the room and laterality confirmed. ESWL was performed. The 1st 500 shocks were performed at 60 hertz. These were performed with increasing power. Once maximum power was reached the rate was increased to 180 hertz. A total of 2500 shocks were given. Fluoroscopy showed stone disintegration. At the completion of the ESWL cystoscopy was performed and the left stent was removed. They tolerated procedure well and was transferred to the recovery area upon completion.
[2020-07-23 09:13] VITALS: BP 112/65; PULSE 71; RESP 14; TEMP 36.7; O2SAT 96
[2020-07-23 09:28] VITALS: BP 114/75; PULSE 67; RESP 16; O2SAT 100
[2020-07-23] MEDS: oxyCODONE HCl Immed Release 5 MG TABLET PO (09:28)
[2020-07-23 09:43] VITALS: BP 114/78; PULSE 63; RESP 16; TEMP 36.7; O2SAT 100
--- NOTE | 2020-07-23 10:10 | PC.NURSE ---
[facility] [employer] utilized for patient education and discharge instructions
[2022-05-11 10:05] VITALS: BMI 26.1
== END 2020-07-23 10:11 | disposition home or self-care (01) ==
PROVIDERS: PCP Internal Medicine; Visit Provider Urology
PROC: (CPT 50590; principal; 2020-07-23 08:40)
DX: N20.0 Calculus of kidney (principal)
CPT/HCPCS: 50590; 52310; 36415; 74018; 82947; 85007; 85027; J2250; J3010

== ENCOUNTER 2020-08-07 12:18 | Outpatient (REF) | payer MEDICAID, SELFPAY ==
--- NOTE | ~2020-08-07 | US_ITS ---
EXAMINATION: US RETROPERITONEAL LIMITED (RENAL ONLY) CLINICAL INFORMATION: Calculus of kidney. COMPARISON: KUB 07/23/2020. CT abdomen and pelvis 06/26/2020. Ultrasound abdomen limited 05/29/2020. TECHNIQUE: Real-time imaging of the kidneys. FINDINGS: RIGHT KIDNEY: 9.8 x 4.7 x 5.9 cm (SAG x AP x TRV). The kidney is normal in size, contour, and echogenicity. Renal cortical thickness is normal. No focal parenchymal lesions or hydronephrosis. There are many echogenic stones versus calcified vessels in the renal cortex. LEFT KIDNEY: 10.3 x 5.0 x 5.9 cm (SAG x AP x TRV). The kidney is normal in size, contour, and echogenicity. Renal cortical thickness is normal. No focal parenchymal lesions or hydronephrosis. Small echogenic stones versus calcifications in upper pole left kidney. The largest echogenic stone in the lower pole medially measures 0.8 x 0.8 cm There is mild pelvic fullness. US/US renal BI IMPRESSION: Multiple small echogenic bilateral renal calculi. An 8 mm largest calculus medially in lower pole is noted. Previously, an 8 mm calculus was seen in the left proximal ureter on CT abdomen exam 06/26/2020.
== END 2020-08-07 12:19 | disposition home or self-care (01) ==
LOC: HO.US 12:18
PROVIDERS: Visit Provider Urology
DX: N20.0 Calculus of kidney (principal)
CPT/HCPCS: 76775

== ENCOUNTER 2020-09-16 01:47 | Emergency (ER) | payer MEDICAID, SELFPAY ==
--- NOTE | 2020-09-16 | ECG_ITS ---
Test Reason : CP Blood Pressure : / mmHG Vent. Rate : 070 BPM Atrial Rate : 070 BPM P-R Int : 132 ms QRS Dur : 082 ms QT Int : 390 ms P-R-T Axes : 055 024 033 degrees QTc Int : 421 ms Normal sinus rhythm Normal ECG When compared with ECG of 29-MAY-2020 16:25, No significant change was found Referred By: Generic ED Physician Electronically Signed By:RIVERA RITCHIE MD
[2020-09-16 02:01] VITALS: BP 130/90; BP 147/79; PULSE 66; PULSE 72; PULSE 88; RESP 19; RESP 20; TEMP 36.8; O2SAT 97; O2SAT 98; BMI 25.9
[2020-09-16 02:20] LABS: Basophils Percent Auto 0.1 % (0-2); Eosinophils Absolute Auto 0.1 X10*3/uL (0.0-0.4); Hematocrit 34.7 % (42-52); Hemoglobin 11.6 g/dl (14.0-18.0); Imm Gran Abs Auto 0.01 X10*3/uL (0.00-0.03); Imm Gran Pct Auto 0.1 % (0.0-0.4); Lymphocytes Absolute Auto 1.9 X10*3/uL (1.2-4.9); Lymphocytes Percent Auto 27.9 % (20-40); MANUAL DIFF FLAG NO; Mean Corpuscular HGB Conc 33.4 g/dl (31.0-36.0); Mean Corpuscular Hemoglobin 28.9 pg (27.0-33.0); Mean Corpuscular Volume 86.3 fL (80-98); Mean Platelet Volume 10.6 fL (9.4-12.4); Monocytes Absolute Auto 0.4 X10*3/uL (0.1-1.2); Monocytes Percent Auto 5.1 % (2-11); Neutrophils Absolute Auto 4.6 X10*3/uL (2.0-8.3); Neutrophils Percent Auto 65.8 % (45-73); Platelet Count 184 X10*3/uL (160-400); Red Blood Count 4.02 X10*6/uL (4.60-5.80); Red Cell Distribution Width 12.5 % (11.0-16.0); White Blood Count 6.9 X10*3/uL (4.8-10.8)
[2020-09-16 02:43] LABS: Alanine Aminotransferase 17 U/L (0-40); Albumin Level 4.6 g/dL (3.5-5.0); Alkaline Phosphatase 101 U/L (39-117); Anion Gap 15 (12-20); Aspartate Amino Transferase 17 U/L (5-37); Bilirubin Total 0.5 mg/dL (0.0-1.0); Blood Urea Nitrogen 18 mg/dL (9-16); Calcium 9.7 mg/dL (8.4-10.2); Carbon Dioxide 20 mmol/L (22-29); Chloride 109 mmol/L (96-108); Creatinine Clr Calc Pharmacy 62.5; Estimated Glomerular Filt Rate 59; Glucose Random 116 mg/dL (60-115); Potassium 3.5 mmol/L (3.3-5.1); Sodium 140 mmol/L (135-145); Total Protein 7.4 g/dL (6.5-8.0)
--- NOTE | 2020-09-16 02:46 | ED.CHESTPAIN ---
HPI - Chest Pain General Chief Complaint: Chest Pain Stated Complaint: chest pain Time Seen by Provider: 09/16/20 02:45 History of Present Illness HPI narrative: Patient is a 44-year-old male with a history of diabetes, hypertension high cholesterol. Patient had an argument with his started developing chest pain. Patient denies any nausea. Minimal shortness of breath. No diaphoresis. Symptoms gradually improved currently is still 8/10. The pain started at around midnight which is about 2-3 hours prior to arrival. Positive history of coronary artery disease. Patient claims he had stents in the past. Related Data Home Medications Medication Instructions Recorded Confirmed acetaminophen 1 - 2 tab PO Q8H PRN 07/17/20 07/17/20 albuterol sulfate [ProAir HFA] 2 puff INHALATION Q4H PRN 07/17/20 07/17/20 aspirin 1 tab PO DAILY 07/17/20 07/17/20 glipizide 1 tab PO QAM 07/17/20 07/17/20 losartan 1 tab PO DAILY 07/17/20 07/17/20 metformin 2 tab PO BID 07/17/20 07/17/20 rosuvastatin 1 tab PO DAILY 07/17/20 07/17/20 Previous Rx's Medication Instructions Recorded albuterol sulfate 2 puff INHALATION Q4-6H PRN #6.7 g 05/21/20 azithromycin See Rx Instructions .ROUTE 05/21/20 .COMPLEX #6 tab benzonatate [Tessalon Perles] 100 mg PO TID PRN #14 cap 05/21/20 cyclobenzaprine 5 mg PO TID PRN #14 tab 05/29/20 doxycycline hyclate 100 mg PO BID #14 tab 05/29/20 ondansetron HCl [Zofran] 4 mg PO Q8H PRN #5 tab 05/29/20 prednisone 40 mg PO DAILY #10 tab 05/29/20 phenazopyridine [Pyridium] 100 mg PO TID PRN 4 Days #12 tab 06/26/20 tramadol 50 mg PO Q6H PRN #14 tab 06/26/20 tamsulosin 0.4 mg PO BEDTIME 14 Days #14 cap 07/23/20 tramadol 50 mg PO Q6H PRN #14 tab 07/23/20 Allergies Allergy/AdvReac Type Severity Reaction Status Date / Time No Known Allergies Allergy Verified 07/17/20 12:39 [No Known Allergies*] Review of Systems Review of Systems: Positive chest pain no shortness of breath no diaphoresis all systems reviewed otherwise negative [facility] Past Medical History Attestation statement: The following information was validated with the patient. Medical History Anemia Arthritis Asthma CAD (coronary artery disease) Diabetes Elevated cholesterol ETOH abuse History of COVID-19 Hypertension Low back pain Myocardial infarction Neck pain Renal calculi Renal insufficiency Surgical History History of lithotripsy Hx of heart artery stent S/P cystoscopy with ureteral stent placement Social History Social History Alcohol intake: never Patient Tobacco Use Status: Never used Tobacco Use of substances other than those prescribed or required for medical reasons: No Advance Directives: No Advance Directives Information Provided: No Physical Exam Vital Signs: Vital Signs: Last Vital Signs Temp 98.2 F 09/16/20 02:01 Pulse 62 09/16/20 05:10 Resp 18 09/16/20 05:10 BP 116/68 09/16/20 05:10 Pulse Ox 100 09/16/20 05:10 Body Mass Index 25.9 Appearance: Alert. Oriented X3. No acute distress. Eyes: Pupils equal, round and reactive to light. ENT: Pharynx normal. Neck: Normal inspection. Neck supple. No lymph nodes noted. No crepitus CVS: Normal heart rate and rhythm. Pulses normal. Normal S1 and S2 Respiratory: No respiratory distress. Breath sounds normal. No Wheezing. No rales Abdomen: Soft and nontender. No rigidity. No distention. good BS x4 Skin: Skin warm and dry. Normal skin color. Normal skin turgor. Extremities: No lower extremity edema. Neurovascular intact to all extremities. No Lacerations. No Rash Neuro: Oriented X 3. No motor deficit. No sensory deficit. Moving all extermities. No slurred speech MDM - Chest Pain MDM Narrative Medical decision making narrative: well-appearing. No distress. Positive chest pain. Patient's EKG showed no evidence of any acute ST segment elevation. Will get 2 sets of cardiac enzymes and monitor carefully As patient has continuous chest pain Two sets of heart enzymes are negative. Patient well-appearing pain atypical will discharge patient home close follow-up outpatient basis. Lab Data Result diagrams: 09/16/20 02:14 09/16/20 02:14 Labs: Lab Results 09/16/20 09/16/20 09/16/20 Range/Units 02:14 02:14 02:14 WBC 6.9 (4.8-10.8) X10*3/uL RBC 4.02 L (4.60-5.80) X10*6/uL Hgb 11.6 L (14.0-18.0) g/dl Hct 34.7 L (42-52) % MCV 86.3 (80-98) fL MCH 28.9 (27.0-33.0) pg MCHC 33.4 (31.0-36.0) g/dl RDW 12.5 (11.0-16.0) % Plt Count 184 (160-400) X10*3/uL MPV 10.6 (9.4-12.4) fL Immature Gran % (Auto) 0.1 (0.0-0.4) % Neut % (Auto) 65.8 (45-73) % Lymph % (Auto) 27.9 (20-40) % [place] % (Auto) 5.1 (2-11) % Eos % (Auto) 1.0 (0-4) % Baso % (Auto) 0.1 (0-2) % Lymph # (Auto) 1.9 (1.2-4.9) X10*3/uL [place] # (Auto) 0.4 (0.1-1.2) X10*3/uL Eos # (Auto) 0.1 (0.0-0.4) X10*3/uL Baso # (Auto) 0.0 (0.0-0.2) X10*3/uL Abs Immat Gran (auto) 0.01 (0.00-0.03) X10*3/uL Absolute Neuts (auto) 4.6 (2.0-8.3) X10*3/uL Absolute Nucleated RBC 0.000 (0.0-0.012) X10*3/uL Nucleated RBC % (auto) 0.0 (0.0-0.2) /100WBC Sodium 140 (135-145) mmol/L Potassium 3.5 D (3.3-5.1) mmol/L Chloride 109 H (96-108) mmol/L Carbon Dioxide 20 L (22-29) mmol/L Anion Gap 15 (12-20) BUN 18 H (9-16) mg/dL Creatinine 1.31 (0.5-1.4) mg/dL Estim Creat Clear Calc 62.5 Estimated GFR 59 Random Glucose 116 H D (60-115) mg/dL Calcium 9.7 (8.4-10.2) mg/dL Total Bilirubin 0.5 (0.0-1.0) mg/dL AST 17 (5-37) U/L ALT 17 (0-40) U/L Alkaline Phosphatase 101 (39-117) U/L Troponin I High Sens 4.4 (<3.5-35.0) ng/L Total Protein 7.4 (6.5-8.0) g/dL Albumin 4.6 (3.5-5.0) g/dL 09/16/20 Range/Units 05:15 WBC (4.8-10.8) X10*3/uL RBC (4.60-5.80) X10*6/uL Hgb (14.0-18.0) g/dl Hct (42-52) % MCV (80-98) fL MCH (27.0-33.0) pg MCHC (31.0-36.0) g/dl RDW (11.0-16.0) % Plt Count (160-400) X10*3/uL MPV (9.4-12.4) fL Immature Gran % (Auto) (0.0-0.4) % Neut % (Auto) (45-73) % Lymph % (Auto) (20-40) % [place] % (Auto) (2-11) % Eos % (Auto) (0-4) % Baso % (Auto) (0-2) % Lymph # (Auto) (1.2-4.9) X10*3/uL [place] # (Auto) (0.1-1.2) X10*3/uL Eos # (Auto) (0.0-0.4) X10*3/uL Baso # (Auto) (0.0-0.2) X10*3/uL Abs Immat Gran (auto) (0.00-0.03) X10*3/uL Absolute Neuts (auto) (2.0-8.3) X10*3/uL Absolute Nucleated RBC (0.0-0.012) X10*3/uL Nucleated RBC % (auto) (0.0-0.2) /100WBC Sodium (135-145) mmol/L Potassium (3.3-5.1) mmol/L Chloride (96-108) mmol/L Carbon Dioxide (22-29) mmol/L Anion Gap (12-20) BUN (9-16) mg/dL Creatinine (0.5-1.4) mg/dL Estim Creat Clear Calc Estimated GFR Random Glucose (60-115) mg/dL Calcium (8.4-10.2) mg/dL Total Bilirubin (0.0-1.0) mg/dL AST (5-37) U/L ALT (0-40) U/L Alkaline Phosphatase (39-117) U/L Troponin I High Sens 4.6 (<3.5-35.0) ng/L Total Protein (6.5-8.0) g/dL Albumin (3.5-5.0) g/dL Discharge Plan Discharge Clinical Impression: Chest pain Patient Disposition: Home, Self-Care Instructions: Chest Pain (ED) Prescriptions: No Action albuterol sulfate 90 mcg/actuation HFA aerosol inhaler 2 puff inhalation Q4-6H PRN (Reason: shortness of breath or wheezing) Qty: 6.7 RF: 0 azithromycin 250 mg tablet See Rx Instructions .ROUTE .COMPLEX Qty: 6 RF: 0 benzonatate [Tessalon Perles] 100 mg capsule 100 mg PO TID PRN (Reason: cough) Qty: 14 RF: 0 doxycycline hyclate 100 mg tablet 100 mg PO BID Qty: 14 RF: 0 prednisone 20 mg tablet 40 mg PO DAILY Qty: 10 RF: 0 ondansetron HCl [Zofran] 4 mg tablet 4 mg PO Q8H PRN (Reason: nausea and vomiting) Qty: 5 RF: 0 cyclobenzaprine 5 mg tablet 5 mg PO TID PRN (Reason: muscle spasm) Qty: 14 RF: 0 metformin 500 mg tablet 2 tab PO BID RF: 0 aspirin 81 mg tablet,delayed release (DR/EC) 1 tab PO DAILY RF: 0 acetaminophen 500 mg tablet 1 - 2 tab PO Q8H PRN (Reason: pain) RF: 0 glipizide 2.5 mg tablet extended release 24hr 1 tab PO QAM RF: 0 albuterol sulfate [ProAir HFA] 90 mcg/actuation HFA aerosol inhaler 2 puff inhalation Q4H PRN (Reason: dyspnea) RF: 0 losartan 100 mg tablet 1 tab PO DAILY RF: 0 rosuvastatin 20 mg tablet 1 tab PO DAILY RF: 0 tramadol 50 mg tablet 50 mg PO Q6H PRN (Reason: pain (scale score 4-6)) Qty: 14 RF: 0 tamsulosin 0.4 mg capsule 0.4 mg PO BEDTIME 14 Days Qty: 14 RF: 0 phenazopyridine [Pyridium] 100 mg tablet 100 mg PO TID PRN (Reason: spasm) 4 Days Qty: 12 RF: 0 tramadol 50 mg tablet 50 mg PO Q6H PRN (Reason: pain (scale score 4-6)) Qty: 14 RF: 0 Referrals: Physician,Unknown [Primary Care Provider] - 2 days
[2020-09-16 02:49] LABS: Troponin-I High Sensitivity 4.4 ng/L (<3.5-35.0)
[2020-09-16 03:07] VITALS: BP 132/85; PULSE 66; RESP 21; O2SAT 98
[2020-09-16] MEDS: 0.9 % Sodium Chloride 1,000 ML 999 ML IV (03:07)
[2020-09-16 05:10] VITALS: BP 116/68; PULSE 62; RESP 18; O2SAT 100
[2020-09-16 05:42] LABS: Troponin-I High Sensitivity 4.6 ng/L (<3.5-35.0)
== END 2020-09-16 06:12 | disposition home or self-care (01) ==
PROVIDERS: Emergency Provider Emergency Medicine Emergency Medical Services
DX: R07.9 Chest pain, unspecified (principal); I10 Essential (primary) hypertension; E11.9 Type 2 diabetes mellitus without complications; J45.909 Unspecified asthma, uncomplicated; I25.2 Old myocardial infarction; Z79.82 Long term (current) use of aspirin; Z79.84 Long term (current) use of oral hypoglycemic drugs; Z79.899 Other long term (current) drug therapy
CPT/HCPCS: 36415; 80053; 84484; 85025; 93005; 96360; 99284; 99285

== ENCOUNTER 2020-10-03 18:26 | Inpatient (IN) | payer MEDICAID, SELFPAY ==
--- NOTE | ~2020-10-03 | FL_ITS ---
EXAMINATION: XR FLUOROSCOPY WITH IMAGES CLINICAL INFORMATION: Kidney stones COMPARISON: None. TECHNIQUE: Fluoroscopy performed by Dr. Moi Moreira. Fluoroscopy time: 0.2 minutes Entrance dose: 10.5 mGy DAP: 2.88 Gycm2 Images: 0 FINDINGS: Fluoroscopic imaging guidance was utilized for a procedure. No images are available for review at this time. FL/FL guidance in OR IMPRESSION: Imaging guidance for procedure. Please refer to the operative report regarding detail and findings.
--- NOTE | ~2020-10-03 | CT_ITS ---
EXAMINATION: CT ABDOMEN AND PELVIS WITHOUT CONTRAST CLINICAL INFORMATION: Left flank pain. History of kidney stones. COMPARISON: Ultrasound of kidneys August 07, 2020. KUB July 23, 2020 CT scan abdomen pelvis June 26, 2020 TECHNIQUE: Multidetector volumetric imaging was performed from the superior aspect of the liver through the pubic symphysis. Sagittal and coronal reformatted images were obtained on the technologist's workstation. This CT examination was performed using dose optimization techniques as appropriate, variously including the following: *Automated exposure control *Adjustment of mA and/or kV according to patient size (this includes techniques or standardized protocols for targeted exams where dose is matched to indication/reason for exam; i.e. extremities or head) *Use of iterative reconstruction technique DLP: 415 mGy-cm FINDINGS: LUNG BASES: The visualized lung bases are unremarkable. LIVER, GALLBLADDER, AND BILIARY TREE: The liver is normal in size, shape, and attenuation. No focal hepatic lesion or biliary ductal dilatation is present. The gallbladder is unremarkable with no evidence of radiopaque gallstones, gallbladder wall thickening, or obvious pericholecystic inflammatory changes. PANCREAS: Unremarkable. SPLEEN: Unremarkable. ADRENAL GLANDS: Unremarkable. KIDNEYS AND URETERS: Left kidney: There is [id number] hydronephrosis of left kidney. Distention of renal pelvis and calyces. There is edema perinephric fat. There is an obstructing stone in the proximal left ureter just distal to the ureteropelvic junction. This stone measures 8 mm. This stone has not changed in position or size since CAT scan of June 26, 2020. The severity of the hydronephrosis is similar to prior CAT scan as well. There are a few small nonobstructive stones in the lower pole of left kidney and a small stone in the upper pole of left kidney measuring 1 to 2 mm.. Right kidney: There are 3 stones measuring between 1 and 2 mm in the right kidney seen in the mid pole, upper pole and lower pole. There is no hydronephrosis. There is no ureteral stone. BLADDER: Unremarkable. GASTROINTESTINAL TRACT: There are multiple diverticula of the sigmoid colon and left colon. There is no diverticulitis. There is no bowel wall thickening /edema. There is no bowel obstruction. There is a moderate volume of stool in the colon. The appendix is normal . The small bowel loops are unremarkable. The stomach is normal. There is no hiatal hernia. ABDOMINAL WALL: No significant hernia is appreciated. LYMPH NODES: Normal. VASCULAR: Unremarkable. PELVIC VISCERA: Unremarkable. OSSEOUS STRUCTURES: Unremarkable. CT/CT abdomen pelvis wo con IMPRESSION: Continuing hydronephrosis of left kidney due to an obstructing 8 mm stone in the proximal left ureter not substantially changed since prior study of June 26, 2020.
[2020-10-03 18:33] VITALS: BP 120/90; PULSE 72; RESP 18; TEMP 37; O2SAT 98; BMI 25.9
[2020-10-03 18:55] LABS: Glucose Urine UA NEG (NEG); Leukocyte Esterase Urine NEG (NEG); Nitrite Urine NEG (NEG); PH 5.5 (5.0-8.0); Specific Gravity - Urine >= 1.030 (1.005-1.025); Urine Blood 2+ (NEG); Urine Ketones NEG (NEG); Urine Protein 2+ MG/DL (NEG-TRACE)
[2020-10-03 18:57] LABS: Appearance Urine CLEAR; Color Urine YELLOW
[2020-10-03 19:13] LABS: Bacteria Urine TRACE /LPF; Mucus Urine 1+ /LPF; RBC Urine 50-75 /HPF (0); Squamous Epithelial Cell Urine TRACE /LPF; WBC Urine 0-2 /HPF (0-4)
--- NOTE | 2020-10-03 21:47 | ED.ABDPAIN ---
HPI - Abdominal Pain General Chief Complaint: Abdominal Pain Stated Complaint: abdominal pain Time Seen by Provider: 10/03/20 21:45 Source: patient Mode of arrival: ambulatory History of Present Illness HPI narrative: 44-year-old male with history of diabetes, hypertension, history of kidney stones presents with left flank pain that he states goes from the back radiates to the front not associated with any shortness of breath, chest pain, fevers, chills, but patient is having nausea and has had a couple of episodes of vomiting without diarrhea and denies difficulty with urination at this time. Related Data Home Medications Medication Instructions Recorded Confirmed acetaminophen 1 - 2 tab PO Q8H PRN 07/17/20 07/17/20 albuterol sulfate [ProAir HFA] 2 puff INHALATION Q4H PRN 07/17/20 07/17/20 aspirin 1 tab PO DAILY 07/17/20 07/17/20 glipizide 1 tab PO QAM 07/17/20 07/17/20 losartan 1 tab PO DAILY 07/17/20 07/17/20 metformin 2 tab PO BID 07/17/20 07/17/20 rosuvastatin 1 tab PO DAILY 07/17/20 07/17/20 Previous Rx's Medication Instructions Recorded albuterol sulfate 2 puff INHALATION Q4-6H PRN #6.7 g 05/21/20 azithromycin See Rx Instructions .ROUTE 05/21/20 .COMPLEX #6 tab benzonatate [Tessalon Perles] 100 mg PO TID PRN #14 cap 05/21/20 cyclobenzaprine 5 mg PO TID PRN #14 tab 05/29/20 doxycycline hyclate 100 mg PO BID #14 tab 05/29/20 ondansetron HCl [Zofran] 4 mg PO Q8H PRN #5 tab 05/29/20 prednisone 40 mg PO DAILY #10 tab 05/29/20 phenazopyridine [Pyridium] 100 mg PO TID PRN 4 Days #12 tab 06/26/20 tramadol 50 mg PO Q6H PRN #14 tab 06/26/20 tamsulosin 0.4 mg PO BEDTIME 14 Days #14 cap 07/23/20 tramadol 50 mg PO Q6H PRN #14 tab 07/23/20 Allergies Allergy/AdvReac Type Severity Reaction Status Date / Time No Known Allergies Allergy Verified 10/03/20 18:33 [No Known Allergies*] Review of Systems Review of Systems Pertinent positives and negatives as stated in HPI 10 point review of systems is otherwise negative. Physical Exam Vital Signs: Vital Signs: Last Vital Signs Temp 97.5 F 10/03/20 22:57 Pulse 57 10/03/20 22:57 Resp 18 10/03/20 22:57 BP 111/71 10/03/20 22:57 Pulse Ox 97 10/03/20 22:57 Body Mass Index 25.9 VITAL SIGNS: Reviewed. GENERAL: Well developed, well nourished, in no acute distress. HEAD: Normocephalic/atraumatic EYES: PERRLA, EOMI OROPHARYNX: no oral lesions noted, posterior pharynx clear NECK: Supple, no adenopathy LUNGS: Normal breath sounds. No adventitious sounds or accessory muscle use. SpO2<98> CARDIOVASCULAR: Regular rate and rhythm without noted murmurs, no JVD or lower extremity edema. ABDOMEN: Soft, left lower quadrant/flank pain, non-distended with bowel sounds. SKIN: Inspection of the skin reveals no rashes NEUROLOGIC: Alert and oriented x 4. Strength and sensation to light touch were grossly intact x 4. Course Course Course Narrative: 44-year-old male with history and clinical presentation most consistent with renal colic and doubt cardio pulmonary etiology or pyelonephritis/UTI or diverticulitis. On review of all investigations patient has obstructing stone on the left, 8 mm, and on re-evaluation he has had minimal improvement of pain and nausea. This case was further discussed with the inpatient hospitalist team who is agreeable for admission. Reevaluation(s) Reevaluation #1: I spoke with Dr. Moreira who recommends admission and he will see the patient in the morning. Time: 23:26 MDM - Abdominal Pain Lab Data Labs: Lab Results 10/03/20 Range/Units 18:40 Urine Color YELLOW Urine Appearance CLEAR Urine pH 5.5 (5.0-8.0) Ur Specific [place] >= 1.030 H (1.005-1.025) Urine Protein 2+ H (NEG-TRACE) MG/DL Urine Glucose (UA) NEG (NEG) MG/DL Urine Ketones NEG (NEG) MG/DL Urine Blood 2+ H (NEG) Urine Nitrite NEG (NEG) Ur Leukocyte Esterase NEG (NEG) Urine RBC 50-75 H (0) /HPF Urine WBC 0-2 (0-4) /HPF Ur Squamous Epith Cells TRACE /LPF Urine Bacteria TRACE /LPF Urine Mucus 1+ /LPF Discharge Plan Discharge Clinical Impression: Ureterolithiasis Patient Disposition: Admitted As Inpatient Prescriptions: No Action albuterol sulfate 90 mcg/actuation HFA aerosol inhaler 2 puff inhalation Q4-6H PRN (Reason: shortness of breath or wheezing) Qty: 6.7 RF: 0 azithromycin 250 mg tablet See Rx Instructions .ROUTE .COMPLEX Qty: 6 RF: 0 benzonatate [Tessalon Perles] 100 mg capsule 100 mg PO TID PRN (Reason: cough) Qty: 14 RF: 0 doxycycline hyclate 100 mg tablet 100 mg PO BID Qty: 14 RF: 0 prednisone 20 mg tablet 40 mg PO DAILY Qty: 10 RF: 0 ondansetron HCl [Zofran] 4 mg tablet 4 mg PO Q8H PRN (Reason: nausea and vomiting) Qty: 5 RF: 0 cyclobenzaprine 5 mg tablet 5 mg PO TID PRN (Reason: muscle spasm) Qty: 14 RF: 0 metformin 500 mg tablet 2 tab PO BID RF: 0 aspirin 81 mg tablet,delayed release (DR/EC) 1 tab PO DAILY RF: 0 acetaminophen 500 mg tablet 1 - 2 tab PO Q8H PRN (Reason: pain) RF: 0 glipizide 2.5 mg tablet extended release 24hr 1 tab PO QAM RF: 0 albuterol sulfate [ProAir HFA] 90 mcg/actuation HFA aerosol inhaler 2 puff inhalation Q4H PRN (Reason: dyspnea) RF: 0 losartan 100 mg tablet 1 tab PO DAILY RF: 0 rosuvastatin 20 mg tablet 1 tab PO DAILY RF: 0 tramadol 50 mg tablet 50 mg PO Q6H PRN (Reason: pain (scale score 4-6)) Qty: 14 RF: 0 tamsulosin 0.4 mg capsule 0.4 mg PO BEDTIME 14 Days Qty: 14 RF: 0 phenazopyridine [Pyridium] 100 mg tablet 100 mg PO TID PRN (Reason: spasm) 4 Days Qty: 12 RF: 0 tramadol 50 mg tablet 50 mg PO Q6H PRN (Reason: pain (scale score 4-6)) Qty: 14 RF: 0 PMFSH Past Medical History Source: nursing notes reviewed Medical History Anemia Arthritis Asthma CAD (coronary artery disease) Diabetes Elevated cholesterol ETOH abuse History of COVID-19 Hypertension Low back pain Myocardial infarction Neck pain Renal calculi Renal insufficiency Surgical History History of lithotripsy Hx of heart artery stent S/P cystoscopy with ureteral stent placement Social History Social History Alcohol intake: never Patient Tobacco Use Status: Never used Tobacco Use of substances other than those prescribed or required for medical reasons: No Advance Directives: No Advance Directives Information Provided: Yes
[2020-10-03] MEDS: Ketorolac Tromethamine 15 MG/ML VIAL IVPUSH (22:08)
[2020-10-03] MEDS: Acetaminophen 325 MG TABLET 975 MG PO (22:09)
[2020-10-03] MEDS: ondansetron HCL 4 MG/2 ML VIAL IVPUSH (22:09)
[2020-10-03 22:57] VITALS: BP 111/71; PULSE 57; RESP 18; TEMP 36.4; O2SAT 97
[2020-10-04] VITALS (12 sets, daily range): BP systolic 102–131; BP diastolic 59–81; PULSE 55–65; RESP 15–18; TEMP 36.1–36.8; O2SAT 97–100
--- NOTE | 2020-10-04 00:10 | PC.NURSE ---
Pt resting on stretcher in NAD, breathing with ease on RA, pt aaox4, sleeping in between pt care. Pt continues to endorse L flank pain, denies n/v. Pt offers no additional complaints. Pt awaiting bed assignment. Stretcher in low locked position, rails raised.
[2020-10-04 00:35] LABS: Basophils Percent Auto 0.2 % (0-2); Eosinophils Absolute Auto 0.1 X10*3/uL (0.0-0.4); Eosinophils Percent Auto 1.1 % (0-4); Hematocrit 34.8 % (42-52); Hemoglobin 11.6 g/dl (14.0-18.0); Imm Gran Abs Auto 0.01 X10*3/uL (0.00-0.03); Imm Gran Pct Auto 0.2 % (0.0-0.4); Lymphocytes Absolute Auto 1.8 X10*3/uL (1.2-4.9); Lymphocytes Percent Auto 28.5 % (20-40); MANUAL DIFF FLAG NO; Mean Corpuscular HGB Conc 33.3 g/dl (31.0-36.0); Mean Platelet Volume 9.9 fL (9.4-12.4); Monocytes Absolute Auto 0.5 X10*3/uL (0.1-1.2); Monocytes Percent Auto 8.4 % (2-11); Neutrophils Percent Auto 61.6 % (45-73); Platelet Count 140 X10*3/uL (160-400); Red Cell Distribution Width 12.3 % (11.0-16.0); White Blood Count 6.5 X10*3/uL (4.8-10.8)
[2020-10-04 00:42] LABS: INTERNATIONAL NORM RATIO 1.1 (0.9-1.1); Prothrombin Time 12.7 SEC (9.9-13.0)
[2020-10-04 00:50] LABS: COVID-19 Test Negative (Negative); IDNOW Serial# 9DD0AD1C
[2020-10-04 01:01] LABS: Alanine Aminotransferase 16 U/L (0-40); Albumin Level 4.2 g/dL (3.5-5.0); Alkaline Phosphatase 98 U/L (39-117); Anion Gap 11 (12-20); Aspartate Amino Transferase 16 U/L (5-37); Bilirubin Total 0.5 mg/dL (0.0-1.0); Blood Urea Nitrogen 18 mg/dL (9-16); Calcium 9.5 mg/dL (8.4-10.2); Carbon Dioxide 26 mmol/L (22-29); Chloride 109 mmol/L (96-108); Creatinine Clr Calc Pharmacy 40.3; Estimated Glomerular Filt Rate 36; Glucose Random 91 mg/dL (60-115); Potassium 4.2 mmol/L (3.3-5.1); Sodium 142 mmol/L (135-145); Total Protein 6.9 g/dL (6.5-8.0)
[2020-10-04] MEDS: Lactated Ringers 1,000 ML 100 ML IVCONT (04:08)
--- NOTE | 2020-10-04 06:05 | PM.IMHP ---
History of Present Illness Date of Service: 10/04/20 Chief Complaint: abd pain Speak English speaking, history is obtained with the help of bird sitter Year old male with past medical history of CAD, asthma, diabetes, HTN, history of COVID-19 infection, renal calculi in CKD who presents to the hospital with complaints of left-sided pain. The pain started earlier in the day radiating to the left back, associated with nausea no vomiting. Pain is 10/10, sharp, constant, not relieved with Tylenol. Worse with walking. Patient denies any fever, no urinary symptoms including no frequency dysuria or urgency. He has history of kidney stones and feels the same, no chest pain, no shortness of breath. Review of system otherwise negative On arrival to the ED Patient hemodynamically stable with no significant abnormal vitals Labs are significant for WBC count of 6.5, hemoglobin of 11.6, BUN of 18, creatinine of 2.03 with baseline around 1.3, UA positive for urine protein, blood, and RBC with no evidence of infection Abd pelvic CT showed continuing hydronephrosis of left kidney due to obstructing 8 mm stone in the proximal left ureter not substantially changed since prior study of June 26, 2020 Urology was consulted and patient will be admitted Review of Systems Review of Systems: Yes all other systems are reviewed and are negative [facility] Medical History Anemia Arthritis Asthma CAD (coronary artery disease) Diabetes Elevated cholesterol ETOH abuse History of COVID-19 Hypertension Low back pain Myocardial infarction Neck pain Renal calculi Renal insufficiency Surgical History History of lithotripsy Hx of heart artery stent S/P cystoscopy with ureteral stent placement Social History Alcohol intake: never Patient Tobacco Use Status: Never used Tobacco Use of substances other than those prescribed or required for medical reasons: No Advance Directives: No Advance Directives Information Provided: Yes Meds Allergies Allergy/AdvReac Type Severity Reaction Status Date / Time No Known Allergies Allergy Verified 10/03/20 18:33 [No Known Allergies*] Active Medications: Current Medications Generic Name Dose Route Start Last Admin Trade Name Freq PRN Reason Stop Dose Admin Acetaminophen 650 mg 10/04/20 03:52 Acetaminophen 325 Mg Tablet PO Q6H PRN Pain, Mild (Pain Scale 1-3) Aspirin 81 mg 10/04/20 09:00 Aspirin Enteric Coated 81 Mg Tablet. PO DAILY [facility] Atorvastatin Calcium 80 mg 10/04/20 09:00 Atorvastatin Calcium 80 Mg Tablet PO DAILY [facility] Docusate Sodium 100 mg 10/04/20 03:52 Docusate Sodium 100 Mg Capsule PO DAILY PRN Constipation Lactated Ringer's 1,000 mls @ 100 mls/hr 10/04/20 03:52 10/04/20 04:08 Lr IVCONT 100 mls/hr .Q10H [facility] Administration Insulin Human Lispro 0 unit 10/04/20 07:30 Insulin Lispro 100 Unit/Ml 3 Ml Vial SUBCUT QIDACHS [facility] Protocol Ondansetron HCl 4 mg 10/04/20 03:52 Ondansetron Hcl 4 Mg/2 Ml Vial IVPUSH Q8H PRN Nausea and Vomiting Sodium Chloride 3 ml 10/04/20 08:00 0.9 % Sodium Chloride Flush 3 Ml Syringe IVFLUSH QSHIFT [facility] Home Medications Medication Instructions Recorded Confirmed Last Taken Type aspirin 1 tab PO DAILY 10/04/20 10/04/20 Unknown History fluticasone propionate [Flovent 1 puff PO BID 10/04/20 10/04/20 Unknown History HFA] glipizide 1 tab PO QAM 10/04/20 10/04/20 Unknown History losartan 1 tab PO DAILY 10/04/20 10/04/20 Unknown History metformin 2 tab PO BID 10/04/20 10/04/20 Unknown History rosuvastatin 1 tab PO DAILY 10/04/20 10/04/20 Unknown History Physical Exam Vital Signs and Narrative: Vital Signs: Last Vital Signs Temp 97.0 F 10/04/20 00:08 Pulse 57 10/04/20 04:07 Resp 16 10/04/20 04:07 BP 105/77 10/04/20 04:07 Pulse Ox 97 10/04/20 04:07 Body Mass Index 25.9 Const: General: cooperative and no acute distress Orientation/consciousness: patient oriented x3 Eyes: General: appearance normal, both eyes and all related structures Resp: Effort & Inspection: normal respiratory effort and able to speak in complete sentences Auscultation: clear to auscultation bilaterally Cardio: Rate: regular rate Rhythm: regular rhythm GI: Palpation (GI): Soft to palpation Auscultation: normal bowel sounds : Other: Left flank pain, no CVA tenderness Skin: General skin exam: no rashes or lesions noted Neuro: General: patient oriented x3 Cognition (Neuro): normal cognition Extrem: General: Yes normal to inspection and Yes no pedal edema Results Labs CBC and Chem 7: 10/04/20 00:27 10/04/20 00:27 Labs: Laboratory Results - last 24 hr 10/03/20 10/04/20 10/04/20 18:40 00:27 00:27 MCV 87.0 MCH 29.0 MCHC 33.3 RDW 12.3 Plt Count 140 L MPV 9.9 Immature Gran % (Auto) 0.2 Neut % (Auto) 61.6 Lymph % (Auto) 28.5 [place] % (Auto) 8.4 Eos % (Auto) 1.1 Baso % (Auto) 0.2 Lymph # (Auto) 1.8 [place] # (Auto) 0.5 Eos # (Auto) 0.1 Baso # (Auto) 0.0 Abs Immat Gran (auto) 0.01 Absolute Neuts (auto) 4.0 Absolute Nucleated RBC 0.000 Nucleated RBC % (auto) 0.0 PT 12.7 INR 1.1 Anion Gap Estim Creat Clear Calc Estimated GFR Random Glucose Calcium Total Bilirubin AST ALT Alkaline Phosphatase Total Protein Albumin Urine Color YELLOW Urine Appearance CLEAR Urine pH 5.5 Ur Specific [place] >= 1.030 H Urine Protein 2+ H Urine Glucose (UA) NEG Urine Ketones NEG Urine Blood 2+ H Urine Nitrite NEG Ur Leukocyte Esterase NEG Urine RBC 50-75 H Urine WBC 0-2 Ur Squamous Epith Cells TRACE Urine Bacteria TRACE Urine Mucus 1+ COVID-19 ([facility]) COVID-19 Clin Com 10/04/20 10/04/20 00:27 00:28 MCV MCH MCHC RDW Plt Count MPV Immature Gran % (Auto) Neut % (Auto) Lymph % (Auto) Moody % (Auto) Eos % (Auto) Baso % (Auto) Lymph # (Auto) Moody # (Auto) Eos # (Auto) Baso # (Auto) Abs Immat Gran (auto) Absolute Neuts (auto) Absolute Nucleated RBC Nucleated RBC % (auto) PT INR Anion Gap 11 L Estim Creat Clear Calc 40.3 Estimated GFR 36 Random Glucose 91 Calcium 9.5 Total Bilirubin 0.5 AST 16 ALT 16 Alkaline Phosphatase 98 Total Protein 6.9 Albumin 4.2 Urine Color Urine Appearance Urine pH Ur Specific [place] Urine Protein Urine Glucose (UA) Urine Ketones Urine Blood Urine Nitrite Ur Leukocyte Esterase Urine RBC Urine WBC Ur Squamous Epith Cells Urine Bacteria Urine Mucus COVID-19 ([facility]) Negative COVID-19 Clin Com See Note Imaging Radiologist's Impressions: Impressions Abdomen/Pelvis CT 10/03/20 21:45 IMPRESSION: Continuing hydronephrosis of left kidney due to an obstructing 8 mm stone in the proximal left ureter not substantially changed since prior study of June 26, 2020. Assessment and Plan (1) Ureterolithiasis: Status: Acute This is a 44-year-old male with past medical history of diabetes, hypertension, coronary artery disease, history of kidney stones who presents to the hospital with left abdominal pain found to have obstructing urolithiasis # obstructing urolithiasis - no evidence of infection - appears to have been there since June with hydronephrosis - UA negative - no evidence of pyelonephritis - will start patient on IV fluid - urology consulted for intervention in a - keep NPO # normocytic anemia - hemoglobin around his baseline - most likely secondary to anemia of chronic disease - follow CBC # CAD - no chest pain, - continue aspirin # diabetes - hold metformin and glipizide - start low-dose sliding scale insulin - diabetic diet DVT prophylaxis: SCDs in the setting of possible urological intervention Quality Stroke Does the patient have a stroke diagnosis?: No VTE Prior VTE?: No VTE Risk Level:: Medical - moderate - high VTE Device Contraindication: N/A - Device Ordered VTE Drug Contraindication: Treatment Not Indicated
[2020-10-04 08:44] LABS: Glucose, Whole Blood 70 mg/dL (60-115)
--- NOTE | 2020-10-04 08:50 | PC.NURSE ---
POC 70
[2020-10-04] MEDS: Aspirin Enteric Coated 81 MG TABLET.DR PO (09:21)
[2020-10-04] MEDS: Atorvastatin Calcium 80 MG TABLET PO (09:21)
[2020-10-04 10:05] LABS: Glucose, Whole Blood 66 mg/dL (60-115)
[2020-10-04] MEDS: Dextrose 5 % and Lactated Ring 1,000 ML 125 ML IVCONT ×2 (11:52→23:49)
[2020-10-04 12:18] LABS: Glucose, Whole Blood 54 mg/dL (60-115)
[2020-10-04 12:46] LABS: Glucose, Whole Blood 174 mg/dL (60-115)
--- NOTE | 2020-10-04 12:47 | PM.UROCN ---
History of Present Illness Consult details Consult date: 10/04/20 Narrative: 44-year-old male Presented with [address] scan with obstructing 9 mm proximal left ureteric stone Similar stone seen in imaging in June Creatinine elevated to 2.0 from baseline 1.3 He had not followed with Urology at that point secondary to insurance issues Has had prior stone procedures He states 2 procedures at [facility] and 1 at [place] in the past Discussed intervention Given stone location and diabetic background would suggest stent placement with definitive follow-up in the future This will be organized Review of Systems Constitutional: Constitutional: Denies chills and Denies fever(s) Cardiovascular: Cardiovascular: Reports no additional cardiovascular complaints and Denies syncope Respiratory: Respiratory: Denies cough Gastrointestinal: Gastrointestinal: Denies abdominal pain and Denies heartburn Genitourinary: Genitourinary: Reports as per HPI and Denies change in libido Neurologic: Denies syncope Psychiatric: Psychiatric: Denies change in libido Endocrine: Endocrine: Denies change in libido [facility] Past Medical History Medical History Anemia Arthritis Asthma CAD (coronary artery disease) Diabetes Elevated cholesterol ETOH abuse History of COVID-19 Hypertension Low back pain Myocardial infarction Neck pain Renal calculi Renal insufficiency Surgical History Surgical History History of lithotripsy Hx of heart artery stent S/P cystoscopy with ureteral stent placement Social History Social History Alcohol intake: never Patient Tobacco Use Status: Never used Tobacco Use of substances other than those prescribed or required for medical reasons: No Advance Directives: No Advance Directives Information Provided: Yes Meds Allergies Allergy/AdvReac Type Severity Reaction Status Date / Time No Known Allergies Allergy Verified 10/03/20 18:33 [No Known Allergies*] Active Medications: Current Medications Generic Name Dose Route Start Last Admin Trade Name Freq PRN Reason Stop Dose Admin Acetaminophen 650 mg 10/04/20 03:52 Acetaminophen 325 Mg Tablet PO Q6H PRN Pain, Mild (Pain Scale 1-3) Aspirin 81 mg 10/04/20 09:00 10/04/20 09:21 Aspirin Enteric Coated 81 Mg Tablet. PO 81 mg DAILY DANDY Administration Atorvastatin Calcium 80 mg 10/04/20 09:00 10/04/20 09:21 Atorvastatin Calcium 80 Mg Tablet PO 80 mg DAILY DANDY Administration Docusate Sodium 100 mg 10/04/20 03:52 Docusate Sodium 100 Mg Capsule PO DAILY PRN Constipation Dextrose/Lactated Ringer's 1,000 mls @ 125 mls/hr 10/04/20 11:45 10/04/20 11:52 D5lr IVCONT 125 mls/hr .Q8H [facility] Administration Insulin Human Lispro 0 unit 10/04/20 07:30 10/04/20 11:36 Insulin Lispro 100 Unit/Ml 3 Ml Vial SUBCUT Not Given QIDACHS [facility] Protocol Ondansetron HCl 4 mg 10/04/20 03:52 Ondansetron Hcl 4 Mg/2 Ml Vial IVPUSH Q8H PRN Nausea and Vomiting Sodium Chloride 3 ml 10/04/20 08:00 10/04/20 08:43 0.9 % Sodium Chloride Flush 3 Ml Syringe IVFLUSH Not Given QSHIFT [facility] Home Medications Medication Instructions Recorded Confirmed Last Taken Type aspirin 1 tab PO DAILY 10/04/20 10/04/20 Unknown History fluticasone propionate [Flovent 1 puff PO BID 10/04/20 10/04/20 Unknown History HFA] glipizide 1 tab PO QAM 10/04/20 10/04/20 Unknown History losartan 1 tab PO DAILY 10/04/20 10/04/20 Unknown History metformin 2 tab PO BID 10/04/20 10/04/20 Unknown History rosuvastatin 1 tab PO DAILY 10/04/20 10/04/20 Unknown History Physical Exam Vital Signs: Vital Signs: Last Vital Signs Temp 97.9 F 10/04/20 11:42 Pulse 61 10/04/20 11:42 Resp 17 10/04/20 11:42 BP 131/81 10/04/20 11:42 Pulse Ox 100 10/04/20 11:42 Body Mass Index 25.9 Const: General: cooperative, healthy appearing, comfortable and no acute distress Orientation/consciousness: patient oriented x3 HENMT: Face and sinus: Yes normal facial exam Mouth: moist mucous membranes Neck: Neck: Yes normal visual inspection, Yes full ROM and Yes trachea midline Chest: Chest palpation & inspection: normal inspection of the chest Resp: Effort & Inspection: normal respiratory effort, able to speak in complete sentences and no respiratory distress GI: Inspection: Yes normal to inspection Back/Spine/Pelvis: Cervical Spine: normal cervical lordosis Thoracic/Lumbar Spine: thoracic and lumbar spine normal to inspection Skin: General skin exam: no rashes or lesions noted Neuro: General: patient oriented x3, gait normal, tone normal and moves all extremities Extrem: General: Yes normal to inspection and Yes capillary refill normal Results Labs Result diagrams: 10/04/20 00:27 10/04/20 00:27 Labs: Abnormal lab results 10/03/20 10/04/20 10/04/20 Range/Units 18:40 00:27 00:27 RBC 4.00 L (4.60-5.80) X10*6/uL Hgb 11.6 L (14.0-18.0) g/dl Hct 34.8 L (42-52) % Plt Count 140 L (160-400) X10*3/uL Chloride 109 H (96-108) mmol/L Anion Gap 11 L (12-20) BUN 18 H (9-16) mg/dL Creatinine 2.03 H (0.5-1.4) mg/dL POC Glucose (60-115) mg/dL Ur Specific [place] >= 1.030 H (1.005-1.025) Urine Protein 2+ H (NEG-TRACE) MG/DL Urine Blood 2+ H (NEG) Urine RBC 50-75 H (0) /HPF 10/04/20 10/04/20 Range/Units 11:45 12:42 RBC (4.60-5.80) X10*6/uL Hgb (14.0-18.0) g/dl Hct (42-52) % Plt Count (160-400) X10*3/uL Chloride (96-108) mmol/L Anion Gap (12-20) BUN (9-16) mg/dL Creatinine (0.5-1.4) mg/dL POC Glucose 54 L* 174 H (60-115) mg/dL Ur Specific [place] (1.005-1.025) Urine Protein (NEG-TRACE) MG/DL Urine Blood (NEG) Urine RBC (0) /HPF Short CBC 10/04/20 Range/Units 00:27 WBC 6.5 (4.8-10.8) X10*3/uL Hgb 11.6 L (14.0-18.0) g/dl Hct 34.8 L (42-52) % Plt Count 140 L (160-400) X10*3/uL BMP 10/04/20 00:27 Sodium 142 Potassium 4.2 Chloride 109 H Carbon Dioxide 26 BUN 18 H Creatinine 2.03 H Calcium 9.5 Liver Function 10/04/20 Range/Units 00:27 Total Bilirubin 0.5 (0.0-1.0) mg/dL AST 16 (5-37) U/L ALT 16 (0-40) U/L Alkaline Phosphatase 98 (39-117) U/L Albumin 4.2 (3.5-5.0) g/dL Urine 10/03/20 Range/Units 18:40 Urine Color YELLOW Urine Appearance CLEAR Urine pH 5.5 (5.0-8.0) Ur Specific [place] >= 1.030 H (1.005-1.025) Urine Protein 2+ H (NEG-TRACE) MG/DL Urine Glucose (UA) NEG (NEG) MG/DL All other labs normal. Assessment and Plan (1) Renal calculi: Status: Acute (2) Acute kidney injury superimposed on chronic kidney disease: Status: Acute Creatinine elevated to over 2 Imaging with obstructing stone Plan on cystoscopy with stent placement left side Procedures Date of Service Date of Service: 10/04/20
[2020-10-04] MEDS: Acetaminophen 325 MG TABLET 650 MG PO (14:28)
[2020-10-04 16:22] LABS: Glucose, Whole Blood 90 mg/dL (60-115)
[2020-10-04] MEDS: oxyCODONE HCl Immed Release 5 MG TABLET PO (19:30)
[2020-10-04 20:22] LABS: Glucose, Whole Blood 84 mg/dL (60-115)
--- NOTE | 2020-10-04 21:00 | P.HPSUR_ITS ---
Pre-Procedural Eval Section A Date of Service: 10/04/20 The patient is an INPATIENT: Yes Changes since office visit: No Cold of Flu in the past 2 weeks, No New Medical Problems, No Changes in Medication and No Patient answered all questions The History & Physical has been completed within 30 days and I have reviewed it.: Yes Section B Chief Complaint: Nephrolithiasis Allergies: Allergies Allergy/AdvReac Type Severity Reaction Status Date / Time No Known Allergies Allergy Verified 10/03/20 18:33 [No Known Allergies*] Plan Diagnosis/Plan: Unchanged (left retrograde, ureteroscopy, laser lithotripsy, st ent) I have reviewed the history and physical and performed a pertinent physical examination on my patient. No changes have occurred unless specified.
--- NOTE | 2020-10-04 21:12 | PC.NURSE ---
patient transported to OR via wc by OR staff
--- NOTE | 2020-10-04 22:19 | W.PM.OPN ---
Operative Note Operative Note Date of Service: 10/04/20 Narrative: PreOperative Diagnosis: Left proximal ureteric stone Post Operative Diagnosis: Left proximal ureteric stone Procedure: - left cystoscopy, retrograde - dilatation of ureteric orifice under fluoroscopy - left ureteroscopy, laser lithotripsy, stone basketing - left stent placement Surgeon: Dr Moi Moreira Anesthesia: General Indications for procedure: 44-year-old male. Recurrent stone former. Left proximal ureteric stone. Elevated creatinine. Antegrade hydronephrosis. Combination for ureteroscopy laser lithotripsy and stent placement. Questions answered. Procedure: After informed consent was verified patient was brought to the operating placed in supine position. Anesthesia was administered per protocol. Patient was placed in modified dorsal lithotomy position and prepped and draped in a sterile fashion. Safety pause time-out and side of surgery confirmed. Antibiotics confirmed. A 22 [place] cystoscope was inserted per the urethra. Anterior posterior urethra looked normal. The left ureteric orifice was cannulated and retrograde examination performed. Filling defects seen in the left proximal ureter. Sensor guidewire was placed. Cystoscope was removed. Ureteric access sheath was placed. Flexible ureteral scope was placed. Stone was encountered in the renal pelvis. A 270 micron holmium laser fiber was placed. The stones were broken into small pieces using a combination of dusting and hammer settings. A 1.9 [place] 0 tip basket was used to remove fragments. Sensor guidewire was placed. Access sheath was removed. The Sensor guidewire was backloaded through a 22 [place] cystoscope. A 6 [place] by 24 cm double-J stent was placed with good coil seen in the renal pelvis and in the bladder. The bladder was emptied He tolerated procedure well was extubated in operating room transferred in stable condition to recovery area. Pathology: Stones Drains: 6 [place] by 24 cm double-J stent
[2020-10-04] MEDS: Phenazopyridine HCL 100 MG TABLET PO (23:45)
[2020-10-05] VITALS (8 sets, daily range): BP systolic 101–139; BP diastolic 67–84; PULSE 54–66; RESP 14–18; TEMP 36.3–37; O2SAT 96–100
[2020-10-05 00:04] LABS: Glucose, Whole Blood 116 mg/dL (60-115)
[2020-10-05 06:26] LABS: MANUAL DIFF FLAG NO
[2020-10-05 06:36] LABS: Basophils Percent Auto 0.2 % (0-2); Eosinophils Absolute Auto 0.1 X10*3/uL (0.0-0.4); Hemoglobin 9.9 g/dl (14.0-18.0); Imm Gran Abs Auto 0.01 X10*3/uL (0.00-0.03); Imm Gran Pct Auto 0.2 % (0.0-0.4); Lymphocytes Absolute Auto 1.3 X10*3/uL (1.2-4.9); Mean Corpuscular HGB Conc 31.9 g/dl (31.0-36.0); Mean Corpuscular Hemoglobin 28.3 pg (27.0-33.0); Mean Corpuscular Volume 88.6 fL (80-98); Mean Platelet Volume 11.2 fL (9.4-12.4); Monocytes Absolute Auto 0.3 X10*3/uL (0.1-1.2); Monocytes Percent Auto 7.9 % (2-11); Neutrophils Absolute Auto 2.4 X10*3/uL (2.0-8.3); Neutrophils Percent Auto 58.7 % (45-73); Platelet Count 123 X10*3/uL (160-400); Red Cell Distribution Width 12.5 % (11.0-16.0)
[2020-10-05 07:06] LABS: Anion Gap 9 (12-20); Blood Urea Nitrogen 19 mg/dL (9-16); Calcium 8.7 mg/dL (8.4-10.2); Carbon Dioxide 28 mmol/L (22-29); Chloride 108 mmol/L (96-108); Creatinine Clr Calc Pharmacy 43.8; Estimated Glomerular Filt Rate 39; Glucose Random 121 mg/dL (60-115); Potassium 4.2 mmol/L (3.3-5.1); Sodium 141 mmol/L (135-145)
[2020-10-05 07:48] LABS: Glucose, Whole Blood 104 mg/dL (60-115)
[2020-10-05] MEDS: traMADoL HCL 50 MG TABLET PO ×3 (08:17→22:07)
[2020-10-05] MEDS: Aspirin Enteric Coated 81 MG TABLET.DR PO (08:17)
[2020-10-05] MEDS: Atorvastatin Calcium 80 MG TABLET PO (08:17)
[2020-10-05] MEDS: Dextrose 5 % and Lactated Ring 1,000 ML 125 ML IVCONT ×3 (08:18→22:04)
--- NOTE | 2020-10-05 10:26 | HO.PM.IMPN ---
Subjective Subjective Date of Service: 10/05/20 Interval History: Left flank pain has improved, complaining of hematuria , mild left flank pain and weakness, denies nausea vomiting no fevers no other acute issues overnight. ROS [employer] no headache, no dizziness CVS no chest pain, no palpitation GI no nausea, no vomiting, no diarrhea General no fever, no chills Physical Exam Vital Signs: Vital Signs: Last Vital Signs Temp 98.1 F 10/05/20 07:16 Pulse 66 10/05/20 07:16 Resp 16 10/05/20 07:16 BP 101/67 10/05/20 07:16 Pulse Ox 100 10/05/20 07:16 Body Mass Index 25.9 General no acute distress. Neck no JVD. CVS regular rate rhythm, Respiratory lungs clear to auscultation, no respiratory distress, no wheeze, no rhonchi. Gastrointestinal abdomen soft, nontender, bowel sounds audible, no guarding , no rigidity. Back no CVA tenderness Extremities no edema. Neuro nonfocal Skin no rash Objective Data Current Medications Generic Name Dose Route Start Last Admin Trade Name Greggq PRN Reason Stop Dose Admin Acetaminophen 650 mg 10/04/20 03:52 10/04/20 14:28 Acetaminophen 325 Mg Tablet PO 650 mg Q6H PRN Administration Pain, Mild (Pain Scale 1-3) Aspirin 81 mg 10/04/20 09:00 10/05/20 08:17 Aspirin Enteric Coated 81 Mg Tablet.Dr PO 81 mg DAILY DANDY Administration Atorvastatin Calcium 80 mg 10/04/20 09:00 10/05/20 08:17 Atorvastatin Calcium 80 Mg Tablet PO 80 mg DAILY DANDY Administration Docusate Sodium 100 mg 10/04/20 03:52 Docusate Sodium 100 Mg Capsule PO DAILY PRN Constipation Fentanyl 25 mcg 10/04/20 21:40 Fentanyl Citrate/Pf 100 Mcg/2 Ml Vial IVPUSH Q5M PRN Pain, Moderate (Pain Scale 4-6 Dextrose/Lactated Ringer's 1,000 mls @ 125 mls/hr 10/04/20 11:45 10/05/20 08:18 D5lr IVCONT 125 mls/hr .Q8H DANDY Administration Insulin Human Lispro 0 unit 10/04/20 07:30 10/05/20 08:17 Insulin Lispro 100 Unit/Ml 3 Ml Vial SUBCUT Not Given QIDACHS [facility] Protocol Ondansetron HCl 4 mg 10/04/20 03:52 Ondansetron Hcl 4 Mg/2 Ml Vial IVPUSH Q8H PRN Nausea and Vomiting Ondansetron HCl 4 mg 10/04/20 21:40 Ondansetron Hcl 4 Mg/2 Ml Vial IVPUSH ONCE PRN Nausea and Vomiting Oxycodone HCl 5 mg 10/04/20 18:41 10/04/20 19:30 Oxycodone Hcl Immed Release 5 Mg Tablet PO 5 mg Q6H PRN Administration Pain, Severe (Pain Scale 7-10) Sodium Chloride 3 ml 10/04/20 08:00 10/05/20 08:18 0.9 % Sodium Chloride Flush 3 Ml Syringe [facility]USH [facility] HCl 50 mg 10/04/20 22:17 10/05/20 08:17 Tramadol Hcl 50 Mg Tablet PO 50 mg Q6H PRN Administration Pain, Moderate (Pain Scale 4-6 Labs CBC & Chem 7: 10/05/20 05:22 10/05/20 05:22 Labs: Laboratory Results - last 24 hr 10/04/20 10/04/20 10/04/20 11:45 12:42 16:17 WBC RBC Hgb Hct MCV MCH MCHC RDW Plt Count MPV Immature Gran % (Auto) Neut % (Auto) Lymph % (Auto) [place] % (Auto) Eos % (Auto) Baso % (Auto) Lymph # (Auto) [place] # (Auto) Eos # (Auto) Baso # (Auto) Abs Immat Gran (auto) Absolute Neuts (auto) Absolute Nucleated RBC Nucleated RBC % (auto) Sodium Potassium Chloride Carbon Dioxide Anion Gap BUN Creatinine Estim Creat Clear Calc Estimated GFR POC Glucose 54 L* 174 H 90 Random Glucose Calcium 10/04/20 10/04/20 10/05/20 20:18 23:59 05:22 WBC 4.0 L RBC 3.50 L Hgb 9.9 L Hct 31.0 L MCV 88.6 MCH 28.3 MCHC 31.9 RDW 12.5 Plt Count 123 L MPV 11.2 Immature Gran % (Auto) 0.2 Neut % (Auto) 58.7 Lymph % (Auto) 31.0 [place] % (Auto) 7.9 Eos % (Auto) 2.0 Baso % (Auto) 0.2 Lymph # (Auto) 1.3 [place] # (Auto) 0.3 Eos # (Auto) 0.1 Baso # (Auto) 0.0 Abs Immat Gran (auto) 0.01 Absolute Neuts (auto) 2.4 Absolute Nucleated RBC 0.000 Nucleated RBC % (auto) 0.0 Sodium Potassium Chloride Carbon Dioxide Anion Gap BUN Creatinine Estim Creat Clear Calc Estimated GFR POC Glucose 84 116 H Random Glucose Calcium 10/05/20 10/05/20 05:22 07:13 WBC RBC Hgb Hct MCV MCH MCHC RDW Plt Count MPV Immature Gran % (Auto) Neut % (Auto) Lymph % (Auto) [place] % (Auto) Eos % (Auto) Baso % (Auto) Lymph # (Auto) [place] # (Auto) Eos # (Auto) Baso # (Auto) Abs Immat Gran (auto) Absolute Neuts (auto) Absolute Nucleated RBC Nucleated RBC % (auto) Sodium 141 Potassium 4.2 Chloride 108 Carbon Dioxide 28 Anion Gap 9 L BUN 19 H Creatinine 1.87 H Estim Creat Clear Calc 43.8 Estimated GFR 39 POC Glucose 104 Random Glucose 121 H Calcium 8.7 D Quality Stroke Does the patient have a stroke diagnosis?: No VTE Prior VTE?: No VTE Risk Level:: Medical - moderate - high VTE Device Contraindication: N/A - Device Ordered VTE Drug Contraindication: Treatment Not Indicated Assessment and Plan (1) Acute kidney injury superimposed on chronic kidney disease: Status: Acute (2) Ureterolithiasis: Status: Acute (3) Anemia: Status: Acute (4) CAD (coronary artery disease): Status: Acute (5) Elevated cholesterol: Status: Acute Assessment and Plan: 44-year-old male with past medical history of diabetes, hypertension, coronary artery disease, history of kidney stones who presents to the hospital with left abdominal pain found to have obstructing urolithiasis # obstructing urolithiasis/hematuris - appears to be chronic been there since June with hydronephrosis - UA negative, no evidence of pyelonephritis - underwent cystoscopy left proximal ureter stent placement, lithotripsy , now with persistent mild hematuria abdominal pain has improved, follow CBC, follow stone pathology and close outpatient Urology follow-up due to history of recurrent renal stones # Hi on ckd stage 3 Renal function improving continue IV fluid # normocytic anemia - hemoglobin dropped likely due to hematuria - most likely has ch anemia of chronic disease - follow CBC and transfuse if hct drops further # CAD - no chest pain, not on beta-blockers continue statin/asa # diabetes - blood sugars stable continue to hold metformin and glipizide, continue diabetic diet and insulin sliding scale DVT prophylaxis: SCDs in the setting of hematuria and anemia
--- NOTE | 2020-10-05 10:40 | MHC.CM.PN ---
PATIENT LIVES WITH HIS PARENTS. HE IS INDEPENDENT WITH ADLS. NO DME OR VNA. HIS CAR IS IN THE LOT AND HE WILL TRANSPORT HIMSELF HOME. HE EXPECTS TO BE ABLE TO RETURN HOME ON Tuesday10/06/20. HE IS ALSO AWARE THAT IF ANY RECOMMENDATIONS FOR SERVICES ARE MADE, THAT CASE MANAGEMENT CAN ASSIST PRIOR TO DC. NO HCP ON FILE AND PATIENT DOPES NOT FEEL THE NEED FOR ONE AT THIS TIME.
[2020-10-05 12:19] LABS: Glucose, Whole Blood 112 mg/dL (60-115)
[2020-10-05 16:12] LABS: Glucose, Whole Blood 155 mg/dL (60-115)
[2020-10-05] MEDS: Insulin Lispro 100 UNIT/ML 3 ML VIAL SUBCUT (16:42)
[2020-10-05 20:29] LABS: Glucose, Whole Blood 134 mg/dL (60-115)
--- NOTE | 2020-10-05 21:07 | P.PNUR_ITS ---
Subjective Subjective Date of Service: 10/05/20 Interval history: doing better Pain resolved Cr starting to decrease No further acute urologic issues can be seen in office next week for stent removal Physical Exam Vital Signs: Vital Signs: Last Vital Signs Temp 98.6 F 10/05/20 19:39 Pulse 63 10/05/20 19:39 Resp 14 10/05/20 19:39 BP 137/74 10/05/20 19:39 Pulse Ox 98 10/05/20 19:39 Body Mass Index 25.9 Const: General: cooperative, healthy appearing, comfortable and no acute distress Orientation/consciousness: patient oriented x3 HENMT: Face and sinus: Yes normal facial exam Mouth: moist mucous membranes Neck: Neck: Yes normal visual inspection, Yes full ROM and Yes trachea midline Chest: Chest palpation & inspection: normal inspection of the chest Resp: Effort & Inspection: normal respiratory effort, able to speak in complete sentences and no respiratory distress GI: Inspection: Yes normal to inspection Back/Spine/Pelvis: Cervical Spine: normal cervical lordosis Thoracic/Lumbar Spine: thoracic and lumbar spine normal to inspection Skin: General skin exam: no rashes or lesions noted Neuro: General: patient oriented x3, gait normal, tone normal and moves all extremities Extrem: General: Yes normal to inspection and Yes capillary refill normal Urology Results Labs CBC & Chem 7: 10/05/20 05:22 10/05/20 05:22 Labs: Laboratory Results - last 24 hr 10/04/20 10/05/20 10/05/20 23:59 05:22 05:22 WBC 4.0 L RBC 3.50 L Hgb 9.9 L Hct 31.0 L MCV 88.6 MCH 28.3 MCHC 31.9 RDW 12.5 Plt Count 123 L MPV 11.2 Immature Gran % (Auto) 0.2 Neut % (Auto) 58.7 Lymph % (Auto) 31.0 [place] % (Auto) 7.9 Eos % (Auto) 2.0 Baso % (Auto) 0.2 Lymph # (Auto) 1.3 [place] # (Auto) 0.3 Eos # (Auto) 0.1 Baso # (Auto) 0.0 Abs Immat Gran (auto) 0.01 Absolute Neuts (auto) 2.4 Absolute Nucleated RBC 0.000 Nucleated RBC % (auto) 0.0 Sodium 141 Potassium 4.2 Chloride 108 Carbon Dioxide 28 Anion Gap 9 L BUN 19 H Creatinine 1.87 H Estim Creat Clear Calc 43.8 Estimated GFR 39 POC Glucose 116 H Random Glucose 121 H Calcium 8.7 D 10/05/20 10/05/20 10/05/20 07:13 11:54 16:08 WBC RBC Hgb Hct MCV MCH MCHC RDW Plt Count MPV Immature Gran % (Auto) Neut % (Auto) Lymph % (Auto) [place] % (Auto) Eos % (Auto) Baso % (Auto) Lymph # (Auto) [place] # (Auto) Eos # (Auto) Baso # (Auto) Abs Immat Gran (auto) Absolute Neuts (auto) Absolute Nucleated RBC Nucleated RBC % (auto) Sodium Potassium Chloride Carbon Dioxide Anion Gap BUN Creatinine Estim Creat Clear Calc Estimated GFR POC Glucose 104 112 155 H Random Glucose Calcium 10/05/20 20:23 WBC RBC Hgb Hct MCV MCH MCHC RDW Plt Count MPV Immature Gran % (Auto) Neut % (Auto) Lymph % (Auto) [place] % (Auto) Eos % (Auto) Baso % (Auto) Lymph # (Auto) [place] # (Auto) Eos # (Auto) Baso # (Auto) Abs Immat Gran (auto) Absolute Neuts (auto) Absolute Nucleated RBC Nucleated RBC % (auto) Sodium Potassium Chloride Carbon Dioxide Anion Gap BUN Creatinine Estim Creat Clear Calc Estimated GFR POC Glucose 134 H Random Glucose Calcium Progress Note: A&P Assessment and plan (1) Acute kidney injury superimposed on chronic kidney disease: Status: Acute (2) Renal calculi: Status: Acute Assessment and Plan: follow up next week for stent removal Fall Risk Details Current Medications: Current Medications Generic Name Dose Route Start Last Admin Trade Name Freq PRN Reason Stop Dose Admin Acetaminophen 650 mg 10/04/20 03:52 10/04/20 14:28 Acetaminophen 325 Mg Tablet PO 650 mg Q6H PRN Administration Pain, Mild (Pain Scale 1-3) Aspirin 81 mg 10/04/20 09:00 10/05/20 08:17 Aspirin Enteric Coated 81 Mg Tablet. PO 81 mg DAILY DANDY Administration Atorvastatin Calcium 80 mg 10/04/20 09:00 10/05/20 08:17 Atorvastatin Calcium 80 Mg Tablet PO 80 mg DAILY DANDY Administration Docusate Sodium 100 mg 10/04/20 03:52 Docusate Sodium 100 Mg Capsule PO DAILY PRN Constipation Fentanyl 25 mcg 10/04/20 21:40 Fentanyl Citrate/Pf 100 Mcg/2 Ml Vial IVPUSH Q5M PRN Pain, Moderate (Pain Scale 4-6 Dextrose/Lactated Ringer's 1,000 mls @ 125 mls/hr 10/04/20 11:45 10/05/20 14:46 D5lr IVCONT 125 mls/hr .Q8H DANDY Administration Insulin Human Lispro 0 unit 10/04/20 07:30 10/05/20 20:31 Insulin Lispro 100 Unit/Ml 3 Ml Vial SUBCUT [facility] Protocol Ondansetron HCl 4 mg 10/04/20 03:52 Ondansetron Hcl 4 Mg/2 Ml Vial IVPUSH Q8H PRN Nausea and Vomiting Ondansetron HCl 4 mg 10/04/20 21:40 Ondansetron Hcl 4 Mg/2 Ml Vial IVPUSH ONCE PRN Nausea and Vomiting Oxycodone HCl 5 mg 10/04/20 18:41 10/04/20 19:30 Oxycodone Hcl Immed Release 5 Mg Tablet PO 5 mg Q6H PRN Administration Pain, Severe (Pain Scale 7-10) Sodium Chloride 3 ml 10/04/20 08:00 10/05/20 20:59 0.9 % Sodium Chloride Flush 3 Ml Syringe IVFLUSH Not Given [facility] Tramadol HCl 50 mg 10/04/20 22:17 10/05/20 16:37 Tramadol Hcl 50 Mg Tablet PO 50 mg Q6H PRN Administration Pain, Moderate (Pain Scale 4-6 Time Spent With Patient Time: Total time spent is greater than 50% in coordination of care (as documented) at patient's floor/unit and/or counseling patient: Time with patient: less than 15 minutes Progress Note: Quality Stroke Does the patient have a stroke diagnosis?: No
--- NOTE | 2020-10-06 00:56 | PC.NURSE ---
LATE ENTRY FROM PREVIOUS 11-7 SHIFT, PATIENT RETURNED FROM PACU AT 2315 VIA STRETCHER, NO PAIN AT THIS TIME, POC BLOOD SUGAR CHECKED PT OFF UNIT AT HS, POC RESULTS OF 116 AND PT TOLERATED CRACKERS AND KIKE LEE AT THAT TIME.
[2020-10-06 03:33] VITALS: BP 139/83; PULSE 65; RESP 16; TEMP 36.4; O2SAT 96
[2020-10-06] MEDS: Dextrose 5 % and Lactated Ring 1,000 ML 125 ML IVCONT ×3 (05:35→20:44)
[2020-10-06 07:34] VITALS: BP 138/83; PULSE 56; RESP 17; TEMP 36.7; O2SAT 100
[2020-10-06 07:48] LABS: Hemoglobin 10.1 g/dl (14.0-18.0); PLT CLUMP 1
[2020-10-06 07:50] LABS: Hematocrit 30.7 % (42-52); Mean Corpuscular HGB Conc 32.9 g/dl (31.0-36.0); Mean Corpuscular Hemoglobin 28.9 pg (27.0-33.0); Mean Corpuscular Volume 87.7 fL (80-98); Mean Platelet Volume 11.5 fL (9.4-12.4); Platelet Count 120 X10*3/uL (160-400); Red Cell Distribution Width 12.4 % (11.0-16.0); White Blood Count 4.8 X10*3/uL (4.8-10.8)
[2020-10-06 08:00] LABS: Glucose, Whole Blood 119 mg/dL (60-115)
[2020-10-06 08:28] LABS: Anion Gap 9 (12-20); Blood Urea Nitrogen 20 mg/dL (9-16); Calcium 8.5 mg/dL (8.4-10.2); Carbon Dioxide 27 mmol/L (22-29); Chloride 109 mmol/L (96-108); Creatinine Clr Calc Pharmacy 55.4; Estimated Glomerular Filt Rate 52; Glucose Random 128 mg/dL (60-115); Potassium 4.4 mmol/L (3.3-5.1); Sodium 141 mmol/L (135-145)
[2020-10-06] MEDS: Aspirin Enteric Coated 81 MG TABLET.DR PO (09:02)
[2020-10-06] MEDS: 0.9 % Sodium Chloride Flush 3 ML SYRINGE IVFLUSH (09:02)
[2020-10-06] MEDS: Atorvastatin Calcium 80 MG TABLET PO (09:02)
[2020-10-06] MEDS: traMADoL HCL 50 MG TABLET PO (09:02)
[2020-10-06 11:28] VITALS: BP 144/83; PULSE 58; RESP 18; TEMP 36.8; O2SAT 100
--- NOTE | 2020-10-06 13:49 | HO.PM.IMPN ---
Subjective Subjective Date of Service: 10/06/20 Interval History: Patient feeling better since yesterday denies abdominal pain no flank pattern but continued to have hematuria, denies fever,chills, no urinary frequency or urgency. ROS General no headache, no dizziness, no fever chills. CVS no chest pain, no palpitation. Respiratory no cough, no sob. Gastrointestinal no nausea ,no vomiting, no abdominal pain Physical Exam Vital Signs: Vital Signs: Last Vital Signs Temp 98.3 F 10/06/20 11:28 Pulse 58 10/06/20 11:28 Resp 18 10/06/20 11:28 BP 144/83 H 10/06/20 11:28 Pulse Ox 100 10/06/20 11:28 Body Mass Index 25.9 General no acute distress. Neck no JVD. CVS regular rate rhythm, Respiratory lungs clear to auscultation, no respiratory distress, no wheeze, no rhonchi. Gastrointestinal abdomen soft, nontender, bowel sounds audible, no guarding , no rigidity. Back no CVA tenderness Extremities no edema. Neuro nonfocal Skin no rash Objective Data Current Medications Generic Name Dose Route Start Last Admin Trade Name Freq PRN Reason Stop Dose Admin Acetaminophen 650 mg 10/04/20 03:52 10/04/20 14:28 Acetaminophen 325 Mg Tablet PO 650 mg Q6H PRN Administration Pain, Mild (Pain Scale 1-3) Aspirin 81 mg 10/04/20 09:00 10/06/20 09:02 Aspirin Enteric Coated 81 Mg Tablet. PO 81 mg DAILY DANDY Administration Atorvastatin Calcium 80 mg 10/04/20 09:00 10/06/20 09:02 Atorvastatin Calcium 80 Mg Tablet PO 80 mg DAILY DANDY Administration Docusate Sodium 100 mg 10/04/20 03:52 Docusate Sodium 100 Mg Capsule PO DAILY PRN Constipation Fentanyl 25 mcg 10/04/20 21:40 Fentanyl Citrate/Pf 100 Mcg/2 Ml Vial IVPUSH Q5M PRN Pain, Moderate (Pain Scale 4-6 Dextrose/Lactated Ringer's 1,000 mls @ 125 mls/hr 10/04/20 11:45 10/06/20 13:01 D5lr IVCONT 125 mls/hr .Q8H DANDY Administration Insulin Human Lispro 0 unit 10/04/20 07:30 10/06/20 12:04 Insulin Lispro 100 Unit/Ml 3 Ml Vial SUBCUT Not Given QIDACHS [facility] Protocol Ondansetron HCl 4 mg 10/04/20 03:52 Ondansetron Hcl 4 Mg/2 Ml Vial IVPUSH Q8H PRN Nausea and Vomiting Ondansetron HCl 4 mg 10/04/20 21:40 Ondansetron Hcl 4 Mg/2 Ml Vial IVPUSH ONCE PRN Nausea and Vomiting Sodium Chloride 3 ml 10/04/20 08:00 10/06/20 09:02 0.9 % Sodium Chloride Flush 3 Ml Syringe IVFLUSH 3 ml QSHIFT [facility] Administration Tramadol HCl 50 mg 10/04/20 22:17 10/06/20 09:02 Tramadol Hcl 50 Mg Tablet PO 50 mg Q6H PRN Administration Pain, Moderate (Pain Scale 4-6 Labs CBC & Chem 7: 10/06/20 06:38 10/06/20 06:38 Labs: Laboratory Results - last 24 hr 10/05/20 10/05/20 10/06/20 16:08 20:23 06:38 WBC 4.8 RBC 3.50 L Hgb 10.1 L Hct 30.7 L MCV 87.7 MCH 28.9 MCHC 32.9 RDW 12.4 Plt Count 120 L MPV 11.5 Absolute Nucleated RBC 0.000 Nucleated RBC % (auto) 0.0 Sodium Potassium Chloride Carbon Dioxide Anion Gap BUN Creatinine Estim Creat Clear Calc Estimated GFR POC Glucose 155 H 134 H Random Glucose Calcium 10/06/20 10/06/20 06:38 07:32 WBC RBC Hgb Hct MCV MCH MCHC RDW Plt Count MPV Absolute Nucleated RBC Nucleated RBC % (auto) Sodium 141 Potassium 4.4 Chloride 109 H Carbon Dioxide 27 Anion Gap 9 L BUN 20 H Creatinine 1.48 H Estim Creat Clear Calc 55.4 Estimated GFR 52 POC Glucose 119 H Random Glucose 128 H Calcium 8.5 Quality Stroke Does the patient have a stroke diagnosis?: No VTE Prior VTE?: No VTE Risk Level:: Medical - moderate - high VTE Device Contraindication: N/A - Device Ordered VTE Drug Contraindication: Treatment Not Indicated Assessment and Plan (1) Acute kidney injury superimposed on chronic kidney disease: Status: Acute (2) Ureterolithiasis: Status: Acute (3) Anemia: Status: Acute (4) Hypertension: Status: Acute (5) Elevated cholesterol: Status: Acute (6) Hematuria: Status: Acute Assessment and Plan: 44-year-old male with past medical history of diabetes, hypertension, coronary artery disease, history of kidney stones who presents to the hospital with left abdominal pain found to have obstructing urolithiasis # obstructing urolithiasis/hematuria - underwent cystoscopy left proximal ureter stent placement, lithotripsy ,pod 2 now with persistent hematuria, abdominal pain has resolved, hematocrit dropped to 30.7 stable since yesterday Case discussed with Dr. Moreira he feels hematuria will improve with IV hydration, therefore will continue IV fluid and follow CBC, follow stone pathology and recommend close outpatient Urology follow-up due to history of recurrent renal stones # Hi on ckd stage 3 Renal function steadily improving continue IV fluid # acute on chronic anemia due to hematuria - hemoglobin dropped but stable - follow CBC and transfuse if hb below 8 # CAD - no chest pain, not on beta-blockers continue statin/hold asa for hematuria # diabetes - blood sugars stable continue to hold metformin and glipizide, continue diabetic diet and insulin sliding scale DVT prophylaxis: SCDs in the setting of hematuria and anemia
--- NOTE | 2020-10-06 14:08 | MHC.CM.PN ---
EMR REVIEWED, PT CONT'S TO HAVE HEMATURIA, PLT & HCT TRENDING DOWN, NO PLAN FOR D/C TODAY, PLAN CON'S TO BE HOME SELF-CARE AND SELF TRANSPORT, CM WILL CONT TO FOLLOW.
--- NOTE | 2020-10-06 14:25 | HO.POSTANES ---
Post Anesthesia Evaluation Post Anesthesia Evaluation Vital Signs: Vital Signs Temp Pulse Resp BP Pulse Ox 10/06/20 11:28 98.3 F 58 18 144/83 H 100 10/06/20 07:34 98.0 F 56 17 138/83 100 10/06/20 03:33 97.6 F 65 16 139/83 96 Anesthesia: General Mental Status: Awake Pain Control: Satisfactory Nausea/Vomiting: None Hydration: Adequate Anesthesia-Related Issues: No Anes. Related Issues
[2020-10-06 15:38] VITALS: BP 159/97; PULSE 57; RESP 18; TEMP 36.4; O2SAT 99
[2020-10-06 16:35] LABS: Glucose, Whole Blood 125 mg/dL (60-115)
[2020-10-06 16:43] LABS: Glucose, Whole Blood 130 mg/dL (60-115)
[2020-10-06 19:32] VITALS: BP 140/90; PULSE 61; RESP 16; TEMP 36.4; O2SAT 98
[2020-10-06 20:22] LABS: Glucose, Whole Blood 155 mg/dL (60-115)
[2020-10-06] MEDS: Insulin Lispro 100 UNIT/ML 3 ML VIAL SUBCUT (20:44)
[2020-10-07] VITALS: BP 145/92; PULSE 54; RESP 16; TEMP 36.3; O2SAT 99
[2020-10-07] MEDS: traMADoL HCL 50 MG TABLET PO ×2 (00:20→09:24)
[2020-10-07 04:00] VITALS: BP 150/88; PULSE 64; RESP 16; TEMP 36.8; O2SAT 95
[2020-10-07] MEDS: Dextrose 5 % and Lactated Ring 1,000 ML 125 ML IVCONT (04:19)
[2020-10-07 06:45] LABS: Eosinophils Absolute Auto 0.1 X10*3/uL (0.0-0.4); Eosinophils Percent Auto 1.4 % (0-4); Imm Gran Abs Auto 0.01 X10*3/uL (0.00-0.03); Imm Gran Pct Auto 0.2 % (0.0-0.4); MANUAL DIFF FLAG SCAN; Mean Corpuscular HGB Conc 33.2 g/dl (31.0-36.0); PLT CLUMP 1; SCAN SMEAR FLAG 1
[2020-10-07 06:48] LABS: Basophils Percent Auto 0.2 % (0-2); Hematocrit 31.3 % (42-52); Hemoglobin 10.4 g/dl (14.0-18.0); Lymphocytes Absolute Auto 1.7 X10*3/uL (1.2-4.9); Lymphocytes Percent Auto 30.6 % (20-40); Mean Corpuscular Hemoglobin 28.5 pg (27.0-33.0); Mean Corpuscular Volume 85.8 fL (80-98); Monocytes Absolute Auto 0.3 X10*3/uL (0.1-1.2); Monocytes Percent Auto 6.1 % (2-11); Neutrophils Absolute Auto 3.4 X10*3/uL (2.0-8.3); Neutrophils Percent Auto 61.5 % (45-73); Platelet Count 143 X10*3/uL (160-400); Red Blood Count 3.65 X10*6/uL (4.60-5.80); Red Cell Distribution Width 11.9 % (11.0-16.0); White Blood Count 5.6 X10*3/uL (4.8-10.8)
[2020-10-07 07:10] LABS: Anion Gap 10 (12-20); Blood Urea Nitrogen 12 mg/dL (9-16); Carbon Dioxide 28 mmol/L (22-29); Chloride 106 mmol/L (96-108); Creatinine Clr Calc Pharmacy 70.6; Estimated Glomerular Filt Rate > 60; Glucose Random 132 mg/dL (60-115); Sodium 140 mmol/L (135-145)
[2020-10-07 07:17] LABS: Glucose, Whole Blood 117 mg/dL (60-115)
[2020-10-07 07:32] VITALS: BP 142/86; PULSE 56; RESP 18; TEMP 36.3; O2SAT 99
[2020-10-07] MEDS: Atorvastatin Calcium 80 MG TABLET PO (09:24)
--- NOTE | 2020-10-07 09:58 | P.DS_ITS ---
DS: Providers Provider Date of Service: 10/07/20 Date of admission: 10/04/20 01:43 Primary care physician: Sonia Valadez MD Consults: 10/04/20 03:52 Consult to Urology Routine Consulting Provider: Moi Moreira Reason for consultation: nephrolithiasis Has provider been notified: Yes DS: Diagnosis Discharge Diagnosis (1) Acute kidney injury superimposed on chronic kidney disease: Status: Acute (2) Ureterolithiasis: Status: Acute (3) Anemia: Status: Acute (4) Hypertension: Status: Acute (5) Elevated cholesterol: Status: Acute (6) Hematuria: Status: Acute DS: Medications Discharge Medications Home Medications: Home Medications Medication Instructions Recorded Confirmed aspirin 1 tab PO DAILY 10/04/20 10/04/20 fluticasone propionate [Flovent 1 puff PO BID 10/04/20 10/04/20 HFA] glipizide 1 tab PO QAM 10/04/20 10/04/20 losartan 1 tab PO DAILY 10/04/20 10/04/20 metformin 2 tab PO BID 10/04/20 10/04/20 rosuvastatin 1 tab PO DAILY 10/04/20 10/04/20 DS: Summary Hospital Course Hospital Course: Admission HPI: Chief Complaint: abd pain Speak Tristanian speaking, history is obtained with the help of science interpreter Year old male with past medical history of CAD, asthma, diabetes, HTN, history of COVID-19 infection, renal calculi in CKD who presents to the hospital with complaints of left-sided pain. The pain started earlier in the day radiating to the left back, associated with nausea no vomiting. Pain is 10/10, sharp, constant, not relieved with Tylenol. Worse with walking. Patient denies any fever, no urinary symptoms including no frequency dysuria or urgency. He has history of kidney stones and feels the same, no chest pain, no shortness of breath. Review of system otherwise negative On arrival to the ED Patient hemodynamically stable with no significant abnormal vitals Labs are significant for WBC count of 6.5, hemoglobin of 11.6, BUN of 18, creatinine of 2.03 with baseline around 1.3, UA positive for urine protein, blood, and RBC with no evidence of infection Abd pelvic CT showed continuing hydronephrosis of left kidney due to obstructing 8 mm stone in the proximal left ureter not substantially changed since prior study of June 26, 2020 Hospital course: Patient was admitted for management obstructive kidney stone with renal failure. He underwent Cystoscopy by Dr. Moreira on 10/04/20 with the following finding. Post Operative Diagnosis: Left proximal ureteric stone Procedure: - left cystoscopy, retrograde - dilatation of ureteric orifice under fluoroscopy - left ureteroscopy, laser lithotripsy, stone basketing - left stent placement. Following the procedure patient developped hematuria which was managed with IVF and has since resolved, aspirin has been on hold. He had KARINE with Creatinine of 2.03 on admission and following hydration has improved to 1.16 today. overall he feels better and has minimal pain. He will need to follow up with Dr. Moreira for stent removal. He is to continue usual diabetes and Hypelipidemia medications and to hold ASA for a week d/t recent hematuria. Time Spent with Patient Time attestation: Total time spent providing and/or coordinating discharge se rvices: Discharge coordination time: Greater than 30 minutes Quality: Stroke Does the patient have a stroke diagnosis?: No Physical Exam Vital Signs: Vital Signs: Last Vital Signs Temp 97.4 F 10/07/20 07:32 Pulse 56 10/07/20 07:32 Resp 18 10/07/20 07:32 BP 142/86 H 10/07/20 07:32 Pulse Ox 99 10/07/20 07:32 Body Mass Index 25.9 Const: Other: General: AO X 3, no acute distress Resp: CTA bilateral CVS: S1,S2,RRR GI: +BS, NT, no distention Skin: No rash Neuro: motor grossly intact : no flank tenderness Psych: appropriate affect DS: Data Data Completed and Pending Pending studies at discharge: Pending at discharge 10/04/20 22:09 Surgical [PTH] Routine Labs on day of discharge: Laboratory Results - last 24 hr 10/06/20 10/06/20 10/06/20 11:26 16:36 20:17 WBC RBC Hgb Hct MCV MCH MCHC RDW Plt Count MPV Immature Gran % (Auto) Neut % (Auto) Lymph % (Auto) [place] % (Auto) Eos % (Auto) Baso % (Auto) Lymph # (Auto) [place] # (Auto) Eos # (Auto) Baso # (Auto) Abs Immat Gran (auto) Absolute Neuts (auto) Absolute Nucleated RBC Nucleated RBC % (auto) Smear Tech's Comments Sodium Potassium Chloride Carbon Dioxide Anion Gap BUN Creatinine Estim Creat Clear Calc Estimated GFR POC Glucose 125 H 130 H 155 H Random Glucose Calcium 10/07/20 10/07/20 10/07/20 06:17 06:17 07:02 WBC 5.6 RBC 3.65 L Hgb 10.4 L Hct 31.3 L MCV 85.8 MCH 28.5 MCHC 33.2 RDW 11.9 Plt Count 143 L MPV 11.0 Immature Gran % (Auto) 0.2 Neut % (Auto) 61.5 Lymph % (Auto) 30.6 [place] % (Auto) 6.1 Eos % (Auto) 1.4 Baso % (Auto) 0.2 Lymph # (Auto) 1.7 [place] # (Auto) 0.3 Eos # (Auto) 0.1 Baso # (Auto) 0.0 Abs Immat Gran (auto) 0.01 Absolute Neuts (auto) 3.4 Absolute Nucleated RBC 0.000 Nucleated RBC % (auto) 0.0 Smear Tech's Comments Not Reportable Sodium 140 Potassium 4.0 Chloride 106 Carbon Dioxide 28 Anion Gap 10 L BUN 12 Creatinine 1.16 Estim Creat Clear Calc 70.6 Estimated GFR > 60 POC Glucose 117 H Random Glucose 132 H Calcium 9.0 Discharge Plan Discharge Anticipated Discharge Date/Time: 10/07/20 09:55 Patient Disposition: Home, Self-Care Discharge Diagnosis: Kidney stone, renal failure and hematuria Referrals: Sonia Valadez MD [Primary Care Provider] - 1 Week Discharge Medications: Continued metformin 500 mg tablet 2 tab PO BID RF: 0 glipizide 2.5 mg tablet extended release 24hr 1 tab PO QAM RF: 0 losartan 100 mg tablet 1 tab PO DAILY RF: 0 Flovent HFA 110 mcg/actuation HFA aerosol inhaler 1 puff PO BID RF: 0 rosuvastatin 20 mg tablet 1 tab PO DAILY RF: 0 Held aspirin 81 mg tablet,delayed release (DR/EC) 1 tab PO DAILY RF: 0 Hold Instructions: Resume on 10/13/20. Discharge Orders: Discharge Order (Routine); Ordered 10/07/20 Ordered By: Sushil Lyons Diet: advance to usual diet and diabetic diet Activity on Discharge: As tolerated Stand Alone Forms: Patient Portal Discharge page Care Plan Goals: full recovery from kidney stone Health Concerns: kidney stone, renal failure, and hematuria Plan of Treatment: hold aspirin for one weak, follow up with Dr. Moreira Assessment: as above Discharge Date/Time: 10/07/20 12:03
--- NOTE | 2020-10-07 10:14 | MHC.CM.PN ---
PT DISCHARGING HOME SELF-CARE, PT WILL SELF-TRANSPORT
[2020-10-10 17:41] LABS: Stone Source L KIDNEY
== END 2020-10-07 12:03 | disposition home or self-care (01) | DRG 446 ==
LOC: HO.ED 23:30 → HO.EDOVER 10-04 01:48 → HO.S3 10-04 08:00
PROVIDERS: Hospitalist; Urology; Admitting Provider Internal Medicine; Emergency Provider Student in an Organized Health Care Education/Training Program; PCP Internal Medicine; Visit Provider Internal Medicine
PROC: 0TC78ZZ Extirpation of Matter from Left Ureter, Via Natural or Artificial Opening Endoscopic (ICD-10-PCS; principal; 2020-10-04 21:00)
DX: N13.2 Hydronephrosis with renal and ureteral calculous obstruction (principal); N17.9 Acute kidney failure, unspecified; E78.00 Pure hypercholesterolemia, unspecified; D63.1 Anemia in chronic kidney disease; R31.9 Hematuria, unspecified; N18.30 Chronic kidney disease, stage 3 unspecified; E11.22 Type 2 diabetes mellitus with diabetic chronic kidney disease; I25.10 Atherosclerotic heart disease of native coronary artery without angina pectoris; Z20.822 Contact with and (suspected) exposure to COVID-19; Z87.442 Personal history of urinary calculi; Z79.82 Long term (current) use of aspirin; Z79.84 Long term (current) use of oral hypoglycemic drugs; Z79.899 Other long term (current) drug therapy
CPT/HCPCS: 36415; 74176; 80048; 80053; 81001; 82365; 82947; 85025; 85027; 85610; 87635; 88300; 99285; C1769; C1894; C2617; J1885; J1956; J2250; J2405; J3010; Q9967

== ENCOUNTER → 2020-10-16 13:44 | Outpatient (BNVA) | payer MEDICAID, SELFPAY | PROVIDERS: PCP Internal Medicine; Visit Provider Urology | DX: N20.0 Calculus of kidney (principal) | CPT/HCPCS: 52000; 52310; 99212 ==

== ENCOUNTER 2020-12-30 15:08 | Outpatient (REF) | payer MEDICAID, SELFPAY ==
--- NOTE | ~2020-12-30 | US_ITS ---
EXAMINATION: US RETROPERITONEAL LIMITED (RENAL ONLY) CLINICAL INFORMATION: Calculus of kidney. COMPARISON: CT abdomen and pelvis without contrast dated 10/03/2020. Bilateral renal ultrasound dated 08/07/2020. KUB dated 07/23/2020. Ultrasound abdomen limited dated 05/29/2020. TECHNIQUE: Real-time imaging of the kidneys. FINDINGS: RIGHT KIDNEY: 10.8 x 4.7 x 4.9 cm (SAG x AP x TRV). The kidney is normal in size, contour, and echogenicity. Renal cortical thickness is normal. There are multiple right renal stones. The largest stone measures 5 x 6 mm in the upper pole. No focal parenchymal lesions or hydronephrosis. LEFT KIDNEY: 10.7 x 4.5 x 4.9 cm (SAG x AP x TRV). The kidney is normal in size, contour, and echogenicity. Renal cortical thickness is normal. There are multiple left renal stones. The largest stone or cluster of stones measures 9 mm in the midpole. No focal parenchymal lesions or hydronephrosis. No perinephric collection. US/US renal BI IMPRESSION: Multiple bilateral renal stones. No hydronephrosis.
== END 2020-12-30 15:09 | disposition home or self-care (01) ==
LOC: HO.US 15:08
PROVIDERS: PCP Internal Medicine; Visit Provider Urology
DX: N20.0 Calculus of kidney (principal)
CPT/HCPCS: 76775

== ENCOUNTER → 2021-01-02 14:16 | Outpatient (BNVA) | payer MEDICAID, SELFPAY | PROVIDERS: PCP Internal Medicine; Visit Provider Urology ==

== ENCOUNTER → 2021-06-12 08:33 | Outpatient (BNVA) | payer MEDICAID, SELFPAY | PROVIDERS: PCP Nurse Practitioner Family; Referring Provider Internal Medicine; Visit Provider Nurse Practitioner | DX: Z12.11 Encounter for screening for malignant neoplasm of colon (principal) | CPT/HCPCS: 99202 ==

== ENCOUNTER 2021-06-22 15:54 | Outpatient (REF) | payer MEDICAID, SELFPAY ==
--- NOTE | ~2021-06-22 | US_ITS ---
EXAMINATION: US RETROPERITONEAL LIMITED (RENAL ONLY) CLINICAL INFORMATION: Calculus of kidney. COMPARISON: US retroperitoneal limited (renal only) 12/30/2020 and 08/07/2020. CT abdomen and pelvis without contrast 10/03/2020. XR abdomen KUB 07/23/2020. TECHNIQUE: Real-time imaging of the kidneys. FINDINGS: RIGHT KIDNEY: 10.4 x 4.8 x 4.5 cm (SAG x AP x TRV). The kidney is normal in size, contour, and echogenicity. Renal cortical thickness is normal. There are multiple renal stones. Largest measure 4 mm in the upper pole, 5 mm in the midpole and 6 mm in the lower pole. No focal parenchymal lesions or hydronephrosis. LEFT KIDNEY: 10.5 x 4.3 x 4.8 cm (SAG x AP x TRV). The kidney is normal in size, contour, and echogenicity. Renal cortical thickness is normal. There are multiple renal stones. Largest measures 6 mm in the upper and midpole and 6 x 10 mm in the lower pole. No focal parenchymal lesions or hydronephrosis. US/US renal BI IMPRESSION: Multiple bilateral renal stones.
== END 2021-06-22 15:55 | disposition home or self-care (01) ==
LOC: HO.US 15:54
PROVIDERS: Visit Provider Urology
DX: N20.0 Calculus of kidney (principal); N20.1 Calculus of ureter
CPT/HCPCS: 76775

== ENCOUNTER 2021-10-13 01:03 | Emergency (ER) | payer MEDICAID, SELFPAY ==
--- NOTE | ~2021-10-13 | XR_ITS ---
EXAMINATION: XR CHEST CLINICAL INFORMATION: Chest pain COMPARISON: 05/26/2019 TECHNIQUE: Frontal view of the chest was obtained. FINDINGS: Normal symmetric lung volumes. No parenchymal consolidation. No pleural effusion. No pneumothorax. Cardiomediastinal silhouette and pulmonary vascularity are within normal limits. No acute osseous abnormalities. XR/XR chest 1V IMPRESSION: No acute findings.
--- NOTE | 2021-10-13 01:05 | ECG_ITS ---
Test Reason : cp Blood Pressure : / mmHG Vent. Rate : 064 BPM Atrial Rate : 064 BPM P-R Int : 138 ms QRS Dur : 088 ms QT Int : 388 ms P-R-T Axes : 056 022 033 degrees QTc Int : 400 ms Normal sinus rhythm Normal ECG When compared with ECG of 16-SEP-2020 01:58, No significant change was found Referred By: Generic ED Physician Electronically Signed By:MONICA BESS
[2021-10-13 01:22] VITALS: BP 145/97; PULSE 64; RESP 16; TEMP 36.7; O2SAT 98; BMI 27.4
[2021-10-13 01:29] LABS: Basophils Percent Auto 0.3 % (0-2); Eosinophils Absolute Auto 0.2 X10*3/uL (0.0-0.4); Eosinophils Percent Auto 2.8 % (0-4); Hemoglobin 12.4 g/dl (14.0-18.0); Imm Gran Abs Auto 0.01 X10*3/uL (0.00-0.03); Imm Gran Pct Auto 0.2 % (0.0-0.4); Lymphocytes Absolute Auto 2.2 X10*3/uL (1.2-4.9); Lymphocytes Percent Auto 36.6 % (20-40); MANUAL DIFF FLAG NO; Mean Corpuscular HGB Conc 33.5 g/dl (31.0-36.0); Mean Corpuscular Hemoglobin 29.7 pg (27.0-33.0); Mean Corpuscular Volume 88.5 fL (80.0-98.0); Mean Platelet Volume 10.1 fL (9.4-12.4); Monocytes Absolute Auto 0.5 X10*3/uL (0.1-1.2); Monocytes Percent Auto 7.9 % (2-11); Neutrophils Absolute Auto 3.2 x10*3/uL (2.0-8.3); Neutrophils Percent Auto 52.2 % (45-73); Platelet Count 167 X10*3/uL (160-400); Red Blood Count 4.18 X10*6/uL (4.60-5.80); Red Cell Distribution Width 13.2 % (11.0-16.0)
[2021-10-13 01:54] LABS: Anion Gap 12 (12-20); Blood Urea Nitrogen 21 mg/dL (9-16); Calcium 9.6 mg/dL (8.4-10.2); Carbon Dioxide 24 mmol/L (22-29); Chloride 109 mmol/L (96-108); Creatinine Clr Calc Pharmacy 56.5; Estimated Glomerular Filt Rate 48; Glucose Random 130 mg/dL (60-115); Potassium 4.5 mmol/L (3.3-5.1); Sodium 140 mmol/L (135-145)
--- NOTE | 2021-10-13 01:54 | ED_ITS ---
HPI - Chest Pain General Chief Complaint: Chest Pain Stated Complaint: chest pain Time Seen by Provider: 10/13/21 01:54 Source: patient Mode of arrival: ambulatory History of Present Illness HPI narrative: 45-year-old male with history hypertension, diabetes, prior cardiac stents in 2009 who presents with sharp/constant substernal chest pain that is nonradiating not associated with deep inspiration /dizziness/shortness of breath but patient reports nausea. Patient denies any recent cough, sore throat. Related Data Home Medications Medication Instructions Recorded Confirmed aspirin 81 mg tablet,delayed 1 tab PO DAILY 10/04/20 10/04/20 release fluticasone propionate 110 1 puff PO BID 10/04/20 10/04/20 mcg/actuation HFA aerosol inhaler (Flovent HFA) glipizide 2.5 mg tablet, extended 1 tab PO QAM 10/04/20 10/04/20 release 24 hr losartan 100 mg tablet 1 tab PO DAILY 10/04/20 10/04/20 metformin 500 mg tablet 2 tab PO BID 10/04/20 10/04/20 rosuvastatin 20 mg tablet 1 tab PO DAILY 10/04/20 10/04/20 Previous Rx's Medication Instructions Recorded peg 3350-electrolytes 236 240 ml PO Q10M 1 day #4,000 mL 06/12/21 gram-22.74 gram-6.74 gram-5.86 gram solution (Golytely) pyridoxine (vitamin B6) 100 mg 100 mg PO DAILY 90 days #90 tabs 08/07/21 tablet Allergies Allergy/AdvReac Type Severity Reaction Status Date / Time No Known Allergies Allergy Verified 10/13/21 01:24 [No Known Allergies*] Review of Systems Review of Systems: Pertinent positives and negatives as stated in HPI 10 point review of systems is otherwise negative. PMFSH Past Medical History Source: nursing notes reviewed Medical History Anemia Arthritis Asthma CAD (coronary artery disease) Diabetes Elevated cholesterol ETOH abuse History of COVID-19 Hypertension Low back pain Myocardial infarction Neck pain Renal calculi Renal insufficiency Surgical History History of lithotripsy Hx of heart artery stent S/P cystoscopy with ureteral stent placement Social History Social History Household Members: Family Housing: Apartment Do you presently have visiting nurse or other home services: No Alcohol intake: unknown Patient Tobacco Use Status: Never used Tobacco Use of substances other than those prescribed or required for medical reasons: Unknown Advance Directives: No Advance Directives Information Provided: Yes service: No Current occupational status: unemployed Physical Exam Vital Signs: Vital Signs: Last Vital Signs Temp 97.5 F 10/13/21 04:46 Pulse 66 10/13/21 04:46 Resp 19 10/13/21 04:46 BP 135/84 10/13/21 04:46 Pulse Ox 100 10/13/21 04:46 O2 Del Method 10/13/21 04:46 BMI result Body Mass Index 27.4 VITAL SIGNS: Reviewed. GENERAL: Well developed, well nourished, in no acute distress. HEAD: Normocephalic/atraumatic EYES: PERRLA, EOMI EARS: Ext canals without abnormality OROPHARYNX: no oral lesions noted, posterior pharynx clear LUNGS: Normal breath sounds. No adventitious sounds or accessory muscle use. SpO2<98>;CHEST WALL: Reproducible chest pain on palpation at the sternal /epigastric area, no deformity or crepitus noted. CARDIOVASCULAR: Regular rate and rhythm without noted murmurs, no JVD or lower extremity edema. ABDOMEN: Soft, non-tender, non-distended with bowel sounds. MUSCULOSKELETAL: No tenderness, deformities, or effusions noted on gross inspection. EXTREMITIES: No cyanosis, clubbing or edema. SKIN: Inspection of the skin reveals no rashes NEUROLOGIC: Alert and oriented x 4. Strength and sensation to light touch were grossly intact x 4. Course Course Course Narrative: 45-year-old male with history and clinical presentation most suggestive of possible pancreatitis, costochondritis, acid reflux but will rule out cardiopulmonary etiology. Review of all investigations consistent with mild pancreatitis, patient is able to tolerate oral intake, serial troponins are otherwise negative and there is no clinical suspicion for PE or bone abnormalities. Repeat lipase shows a downward trend and all results were discussed with the patient at bedside. MDM - Chest Pain Lab Data Result diagrams: 10/13/21 01:23 10/13/21 05:23 Labs: Lab Results 10/13/21 10/13/21 10/13/21 Range/Units 01:23 01:23 01:23 WBC 6.0 (4.8-10.8) X10*3/uL RBC 4.18 L (4.60-5.80) X10*6/uL Hgb 12.4 L (14.0-18.0) g/dl Hct 37.0 L (42.0-52.0) % MCV 88.5 (80.0-98.0) fL MCH 29.7 (27.0-33.0) pg MCHC 33.5 (31.0-36.0) g/dl RDW 13.2 (11.0-16.0) % Plt Count 167 (160-400) X10*3/uL MPV 10.1 (9.4-12.4) fL Immature Gran % (Auto) 0.2 (0.0-0.4) % Neut % (Auto) 52.2 (45-73) % Lymph % (Auto) 36.6 (20-40) % [place] % (Auto) 7.9 (2-11) % Eos % (Auto) 2.8 (0-4) % Baso % (Auto) 0.3 (0-2) % Lymph # (Auto) 2.2 (1.2-4.9) X10*3/uL [place] # (Auto) 0.5 (0.1-1.2) X10*3/uL Eos # (Auto) 0.2 (0.0-0.4) X10*3/uL Baso # (Auto) 0.0 (0.0-0.2) X10*3/uL Abs Immat Gran (auto) 0.01 (0.00-0.03) X10*3/uL Absolute Neuts (auto) 3.2 (2.0-8.3) x10*3/uL Absolute Nucleated RBC 0.000 (0.0-0.012) X10*3/uL Nucleated RBC % (auto) 0.0 (0.0-0.2) /100WBC Sodium 140 (135-145) mmol/L Potassium 4.5 (3.3-5.1) mmol/L Chloride 109 H (96-108) mmol/L Carbon Dioxide 24 (22-29) mmol/L Anion Gap 12 (12-20) BUN 21 H (9-16) mg/dL Creatinine 1.56 H (0.5-1.4) mg/dL Estim Creat Clear Calc 56.5 Estimated GFR 48 Random Glucose 130 H (60-115) mg/dL Calcium 9.6 D (8.4-10.2) mg/dL Troponin I High Sens < 3.5 (<3.5-35.0) ng/L Lipase 103 H (8-78) U/L COVID-19 ([facility]) (Negative) COVID-19 Clin Com 10/13/21 10/13/21 10/13/21 Range/Units 05:23 05:23 05:23 WBC (4.8-10.8) X10*3/uL RBC (4.60-5.80) X10*6/uL Hgb (14.0-18.0) g/dl Hct (42.0-52.0) % MCV (80.0-98.0) fL MCH (27.0-33.0) pg MCHC (31.0-36.0) g/dl RDW (11.0-16.0) % Plt Count (160-400) X10*3/uL MPV (9.4-12.4) fL Immature Gran % (Auto) (0.0-0.4) % Neut % (Auto) (45-73) % Lymph % (Auto) (20-40) % [place] % (Auto) (2-11) % Eos % (Auto) (0-4) % Baso % (Auto) (0-2) % Lymph # (Auto) (1.2-4.9) X10*3/uL [place] # (Auto) (0.1-1.2) X10*3/uL Eos # (Auto) (0.0-0.4) X10*3/uL Baso # (Auto) (0.0-0.2) X10*3/uL Abs Immat Gran (auto) (0.00-0.03) X10*3/uL Absolute Neuts (auto) (2.0-8.3) x10*3/uL Absolute Nucleated RBC (0.0-0.012) X10*3/uL Nucleated RBC % (auto) (0.0-0.2) /100WBC Sodium 139 (135-145) mmol/L Potassium 4.4 (3.3-5.1) mmol/L Chloride 112 H (96-108) mmol/L Carbon Dioxide 22 (22-29) mmol/L Anion Gap 9 L (12-20) BUN 21 H (9-16) mg/dL Creatinine 1.14 (0.5-1.4) mg/dL Estim Creat Clear Calc 77.3 Estimated GFR > 60 Random Glucose 125 H (60-115) mg/dL Calcium 8.4 D (8.4-10.2) mg/dL Troponin I High Sens 3.6 (<3.5-35.0) ng/L Lipase 89 H (8-78) U/L COVID-19 ([facility]) Negative (Negative) COVID-19 Clin Com See Note ECG Data ECG #1: Attestation: I personally reviewed and interpreted this ECG as follows: Prior ECG tracings: available for review Interpretation: NSR, HR - 64, no STEMI, OH /QRS / QTC are within normal limits. Discharge Plan Discharge Clinical Impression: Pancreatitis, KARINE (acute kidney injury) Patient Disposition: Home, Self-Care Instructions: Pancreatitis (ED) Additional Instructions: 1. Resume all home medications as prescribed. 2. Drink plenty of water and eat a bland diet for the next 2 days. 3. Call your primary care provider and discuss the possibility of adjusting your metformin medication as this may be causing your pancreas to be inflamed. Return to the ER for worsening symptoms. Prescriptions: No Action pyridoxine (vitamin B6) 100 mg tablet 100 mg PO DAILY 90 Days Qty: 90 1RF metformin 500 mg tablet 2 tab PO BID aspirin 81 mg tablet,delayed release (DR/EC) 1 tab PO DAILY Hold Instructions: Resume on 10/13/20. glipizide 2.5 mg tablet extended release 24hr 1 tab PO QAM losartan 100 mg tablet 1 tab PO DAILY Flovent HFA 110 mcg/actuation HFA aerosol inhaler 1 puff PO BID rosuvastatin 20 mg tablet 1 tab PO DAILY peg 3350-electrolytes [Golytely] 236-22.74-6.74 -5.86 gram recon soln 240 ml PO Q10M 1 Days Qty: 4000 0RF Rx Instructions: until fecal effluent is clear; do not exceed a total volume of 2,000 mL Referrals: [facility] [Primary Care Provider] -
[2021-10-13 02:02] LABS: Troponin-I High Sensitivity < 3.5 ng/L (<3.5-35.0)
[2021-10-13 02:24] LABS: Lipase 103 U/L (8-78)
[2021-10-13] MEDS: 0.9 % Sodium Chloride 2,000 ML 999 ML IV (03:00)
[2021-10-13] MEDS: Lidocaine HCl Viscous 2 % 15 ML SOLUTION 10 ML MUCOUS MEM (04:08)
[2021-10-13] MEDS: Magnesium Hydrox/Alum Hydrox 30 ML ORAL.SUSP PO (04:08)
[2021-10-13 04:46] VITALS: BP 135/84; PULSE 66; RESP 19; TEMP 36.4; O2SAT 100
[2021-10-13] MEDS: Ketorolac Tromethamine 30 MG/ML VIAL 15 MG IVPUSH (05:23)
[2021-10-13 05:44] LABS: COVID-19 Test Negative (Negative)
[2021-10-13 05:50] LABS: Anion Gap 9 (12-20); Blood Urea Nitrogen 21 mg/dL (9-16); Calcium 8.4 mg/dL (8.4-10.2); Carbon Dioxide 22 mmol/L (22-29); Chloride 112 mmol/L (96-108); Creatinine Clr Calc Pharmacy 77.3; Estimated Glomerular Filt Rate > 60; Glucose Random 125 mg/dL (60-115); Lipase 89 U/L (8-78); Potassium 4.4 mmol/L (3.3-5.1); Sodium 139 mmol/L (135-145)
[2021-10-13 05:54] LABS: Troponin-I High Sensitivity 3.6 ng/L (<3.5-35.0)
--- NOTE | 2021-10-13 05:55 | PC.NURSE ---
I assumed nursing care of Jimi upon his arrival to bed 2 from the waiting room. Jimi presents for evaluation of epigastric abdominal/chest pain. He points to his epigastric area when describing the pain, denies radiation. Jimi is alert, oriented x 3, primarily yemeni speaking, he makes eye contact with RN and is calm and cooperative. He is able to adequately verbalize his needs. Respirations are spontaneous and non-labored, no cyanosis, RR WNL, room air sats 95% or better. NO nausea. No vomiting. He denies changes in his bowel or bladder habits. Labs were obtained from . On arrival to bed 2 I obtained IV access and infused 2L NS per MD order. pt was then moved to ED Jeffery 4 where he was administered IVP Toradol for 5/10 epigastric pain. Repeat labs obtained at this time also. Will continue to monitor Jimi.
[2021-10-13] MEDS: Lidocaine 4 % Patch ADH..PATCH 1 PATCH TRANSDERMA (06:30)
== END 2021-10-13 06:33 | disposition home or self-care (01) ==
PROVIDERS: Emergency Provider Student in an Organized Health Care Education/Training Program
DX: K85.90 Acute pancreatitis without necrosis or infection, unspecified (principal); N17.9 Acute kidney failure, unspecified; Z20.822 Contact with and (suspected) exposure to COVID-19; R07.9 Chest pain, unspecified; E11.9 Type 2 diabetes mellitus without complications; E78.5 Hyperlipidemia, unspecified; I10 Essential (primary) hypertension; I25.2 Old myocardial infarction; Z79.84 Long term (current) use of oral hypoglycemic drugs; Z79.82 Long term (current) use of aspirin; Z79.899 Other long term (current) drug therapy; Z79.02 Long term (current) use of antithrombotics/antiplatelets
CPT/HCPCS: 36415; 71045; 80048; 83690; 84484; 85025; 87635; 93005; 96361; 96374; 99284; 99285; J1885

== ENCOUNTER 2022-01-12 20:38 | Emergency (ER) | payer MEDICAID, SELFPAY ==
[2022-01-12 20:58] VITALS: BP 140/83; PULSE 68; RESP 18; TEMP 36.7; O2SAT 95; BMI 25.1
== END 2022-01-13 02:53 | disposition left against medical advice (07) ==
PROVIDERS: Emergency Provider Emergency Medicine
DX: M54.2 Cervicalgia (principal); M79.602 Pain in left arm
CPT/HCPCS: 72040; 72100; 99281

== ENCOUNTER → 2022-12-23 10:16 | Outpatient (REF) | payer MEDICAID, SELFPAY | LOC: HO.CARD 10:16 | PROVIDERS: PCP Internal Medicine; Visit Provider Physician Assistant Medical | DX: R06.02 Shortness of breath (principal) | CPT/HCPCS: 93350; Q9957 ==

== ENCOUNTER → 2022-12-23 11:30 | Outpatient (BNV) | payer MEDICAID, SELFPAY | PROVIDERS: PCP Internal Medicine; Visit Provider Nurse Practitioner Family | DX: R06.09 Other forms of dyspnea (principal) | CPT/HCPCS: 93016; 93018; 93350; 93352 ==

== ENCOUNTER 2023-01-18 16:27 | Emergency (ER) | payer MEDICAID, SELFPAY ==
--- NOTE | ~2023-01-18 | XR_ITS ---
EXAMINATION: XR LUMBOSACRAL SPINE CLINICAL INFORMATION: Low back pain COMPARISON: 08/15/2019 TECHNIQUE: Three views of the lumbosacral spine. FINDINGS: Bones are in normal anatomic alignment with no acute fracture or spondylolisthesis. Mild degenerative changes with anterior osteophyte formation more so at T12/L1. Vertebral body heights and disc heights are preserved. Paravertebral soft tissues and bowel gas pattern unremarkable. XR/XR lumbar spine 2-3V IMPRESSION: Mild degenerative changes but no acute fracture or spondylolisthesis.
[2023-01-18 16:44] VITALS: BP 148/96; PULSE 68; RESP 17; TEMP 36.3; O2SAT 98; BMI 26.4
--- NOTE | 2023-01-18 16:46 | ED.BACK ---
HPI - Back Pain/Injury General Chief Complaint: Back Pain/Injury Stated Complaint: Back pain Time Seen by Provider: 01/18/23 18:29 Source: patient, RN notes reviewed and old records reviewed Mode of arrival: ambulatory History of Present Illness HPI Narrative: 47yo M w/PMHx ETOH abuse, CAD, anemia, DM, renal stone, HTN, c/o atraumatic left sided low back pain x3 weeks w/radiation down LLE. denies injury, trauma/fall, numbness, tingling, weakness, incontinence/retention, hematuria. denies hx SHERRY BAILEY elicited complaint: back pain Related Data Home Medications Medication Instructions Recorded Confirmed aspirin 81 mg tablet,delayed 1 tab PO DAILY 10/04/20 10/04/20 release fluticasone propionate 110 1 puff PO BID 10/04/20 10/04/20 mcg/actuation HFA aerosol inhaler (Flovent HFA) glipizide 2.5 mg tablet, extended 1 tab PO QAM 10/04/20 10/04/20 release 24 hr losartan 100 mg tablet 1 tab PO DAILY 10/04/20 10/04/20 metformin 500 mg tablet 2 tab PO BID 10/04/20 10/04/20 rosuvastatin 20 mg tablet 1 tab PO DAILY 10/04/20 10/04/20 Previous Rx's Medication Instructions Recorded peg 3350-electrolytes 236 240 ml PO Q10M 1 day #4,000 mL 06/12/21 gram-22.74 gram-6.74 gram-5.86 gram solution (Golytely) pyridoxine (vitamin B6) 100 mg 100 mg PO DAILY 90 days #90 tabs 08/07/21 tablet acetaminophen 500 mg tablet 500 mg PO Q6H PRN fever or pain 01/18/23 (Tylenol Extra Strength) #14 tabs cyclobenzaprine 5 mg tablet 5 mg PO Q8H PRN pain (scale score 01/18/23 7-10) 5 days #14 tabs lidocaine 5 % topical patch 1 patch topical DAILY PRN pain #30 01/18/23 (Lidoderm) ea naproxen 500 mg tablet 500 mg PO BID PRN pain 10 days #20 01/18/23 tabs Allergies Allergy/AdvReac Type Severity Reaction Status Date / Time No Known Allergies Allergy Verified 10/13/21 01:24 [No Known Allergies*] Review of Systems Review of Systems: Constitutional: No Fever, No Chills ENT/Mouth: No Ear Pain, No Nasal Congestion, No sore throat, No Rhinorrhea, No Swallowing Difficulty Cardiovascular: No Chest Pain, No SOB Respiratory: No Cough, No Sputum Gastrointestinal: No Nausea, No Vomiting, No Abdominal pain Genitourinary: No Dysuria, No Urinary Frequency, No Hematuria, No Urinary Incontinence/retention, No Flank Pain Musculoskeletal: +back pain, No Myalgias, No Joint Swelling Skin: No Skin Lesions, No rash Neuro: No Weakness, No Numbness, No Paresthesias Yes all other systems are reviewed and are negative Constitutional: Constitutional: Reports as per [facility] Past Medical History Attestation statement: The following information was validated with the patient. Source: old records reviewed Medical History Anemia CAD (coronary artery disease) ETOH abuse Renal insufficiency Arthritis Neck pain Low back pain History of COVID-19 Myocardial infarction Diabetes Renal calculi Elevated cholesterol Asthma Hypertension Surgical History S/P cystoscopy with ureteral stent placement History of lithotripsy Hx of heart artery stent Social History Social History Household Members: Family Housing: Apartment Do you presently have visiting nurse or other home services: No Alcohol intake: unknown Patient Tobacco Use Status: Never used Tobacco Advance Directives: No Advance Directives Information Provided: No service: No Current occupational status: unemployed Physical Exam Vital Signs: Vital Signs: Last Vital Signs Temp 97.4 F 01/18/23 16:44 Pulse 68 01/18/23 16:44 Resp 17 01/18/23 16:44 BP 148/96 H 01/18/23 16:44 Pulse Ox 98 01/18/23 16:44 O2 Del Method Room Air 01/18/23 16:44 BMI result Body Mass Index 26.4 Const: General: cooperative, healthy appearing and no acute distress Orientation/consciousness: patient oriented x3 Limitations: no limitations HEENT: Head: Yes normal to inspection and Yes atraumatic Ears: hearing grossly normal bilaterally General nose exam: Normal external nose present Face and sinus: Yes normal facial exam Eyes: General: appearance normal, both eyes and all related structures EOM: EOMs intact bilaterally Neck: Neck: Yes normal visual inspection and Yes no meningeal signs Resp: Effort & Inspection: normal respiratory effort and no respiratory distress Cardio: Rate: regular rate GI: Inspection: Yes normal to inspection Palpation (GI): Soft to palpation, nontender, no guarding and not rigid : General: Yes no CVA tenderness Back/Spine/Pelvis: Other: No midline cervical/thoracic/lumbar spinous tenderness/step-off or deformity. +L lower lumbar MSK ttp w/palpable spasming. No rash/erythema Back: no CVA tenderness Skin: Rashes: no rashes Wounds: no wounds Neuro: Other: Strength intact throughout. No saddle anesthesia. Sensation intact to light touch. Neurovascular intact distally General: patient oriented x3, tone normal, moves all extremities and no meningeal signs Cranial nerves: Yes CN's II-XII intact bilaterally Gait exam (Neuro): Antalgic gait present Extrem: General: Yes normal to inspection Course Course Course Narrative: RME: 47yo M w/PMHx ETOH abuse, CAD, anemia, DM, renal stone, HTN, c/o L low back pain x3 weeks w/radiation down LLE. denies injury, numbness, tingling, weakness, incontinence/retention. denies hx IVDA ambulating w/steady limping gait XRs ordered Full HPI, ROS and PE to be performed by primary ED provider. 1827--XR lumbar spine 2-3V IMPRESSION: Mild degenerative changes but no acute fracture or spondylolisthesis. Results discussed with patient including worrisome signs and symptoms and strict return precautions, and when to return to the emergency department. They verbalized understanding and feel safe for discharge at this time. Medical Decision Making Medical Decision Making MDM Narrative: 47yo M w/PMHx ETOH abuse, CAD, anemia, DM, renal stone, HTN, c/o atraumatic left sided low back pain x3 weeks w/radiation down LLE. On exam VSS, NAD, nontoxic appearing, no midline spinous tenderness through or red flag symptoms. Imaging with antalgic gait. Reproducible MSK tenderness on exam. No saddle anesthesia. Concern for MSK pain/strain and spasming. Low suspicion for cauda/cord compression, epidural abscess, renal stone or fracture Plan: X-rays Please refer to course for remaining clinical decision making, interpretation of labs/imaging results, and discussions with consultants and/or family members. Differential Diagnosis Differential Diagnoses: The differential diagnosis associated with the presentation includes As above Radiology Impression Discussion of test interpretation with radiology: I have reviewed the radiologist's reading. External Record Review External record reviewed: Inpatient record, Office record, Outpatient record, Prior outpatient labs, Prior outpatient radiology, Primary care record and Outside ED record Tests considered The following testing was considered but not selected: As above Prescription Management I considered prescription management with: Pain Medication Discharge Plan Discharge Clinical Impression: Lumbar radiculopathy Patient Disposition: Home, Self-Care Instructions: Lumbar Radiculopathy (ED) Additional Instructions: Your pain is likely musculoskeletal Flexeril is a muscle relaxer, take at night as it makes you drowsy, do not drive, drink alcohol, or operate machinery while taking it Naproxen as an anti-inflammatory / pain medication, take with food Lidoderm patches are numbing patches, apply to painful area In addition take Tylenol at home If symptoms persist or worsen, pain becomes unbearable, you developed urinary retention or incontinence, or weakness return to the ED Prescriptions: New acetaminophen [Tylenol Extra Strength] 500 mg tablet 500 mg PO Q6H PRN (Reason: fever or pain) Qty: 14 0RF lidocaine [Lidoderm] 5 % adhesive patch,medicated 1 patch topical DAILY MDD remove after 12 hours PRN (Reason: pain) Qty: 30 0RF Rx Instructions: leave on most painful area for up to 12 hrs naproxen 500 mg tablet 500 mg PO BID PRN (Reason: pain) 10 Days Qty: 20 0RF cyclobenzaprine 5 mg tablet 5 mg PO Q8H PRN (Reason: pain (scale score 7-10)) 5 Days Qty: 14 0RF No Action pyridoxine (vitamin B6) 100 mg tablet 100 mg PO DAILY 90 Days Qty: 90 1RF metformin 500 mg tablet 2 tab PO BID aspirin 81 mg tablet,delayed release (DR/EC) 1 tab PO DAILY Hold Instructions: Resume on 10/13/20. glipizide 2.5 mg tablet extended release 24hr 1 tab PO QAM losartan 100 mg tablet 1 tab PO DAILY Flovent HFA 110 mcg/actuation HFA aerosol inhaler 1 puff PO BID rosuvastatin 20 mg tablet 1 tab PO DAILY peg 3350-electrolytes [Golytely] 236-22.74-6.74 -5.86 gram recon soln 240 ml PO Q10M 1 Days Qty: 4000 0RF Rx Instructions: until fecal effluent is clear; do not exceed a total volume of 2,000 mL Referrals: Sonia Valadez MD [Primary Care Provider] - Stand Alone Forms: Work/School Release Interventions: ED Discharge Assessment Last Done: 01/18/23 18:46 Discharge Date/Time: 01/18/23 18:47
== END 2023-01-18 18:47 | disposition home or self-care (01) ==
PROVIDERS: Emergency Provider Student in an Organized Health Care Education/Training Program; PCP Internal Medicine
DX: M54.16 Radiculopathy, lumbar region (principal); M54.50 Low back pain, unspecified; E11.9 Type 2 diabetes mellitus without complications; I10 Essential (primary) hypertension; E78.00 Pure hypercholesterolemia, unspecified; D64.9 Anemia, unspecified; Z79.82 Long term (current) use of aspirin; Z79.84 Long term (current) use of oral hypoglycemic drugs
CPT/HCPCS: 72100; 99282; 99283

== ENCOUNTER 2024-03-09 13:53 | Outpatient (REF) | payer MEDICAID, SELFPAY ==
--- NOTE | ~2024-03-09 | XR_ITS ---
EXAMINATION: XR LUMBOSACRAL SPINE CLINICAL INFORMATION: low back pain with radiation COMPARISON: None available. TECHNIQUE: Three views of the lumbosacral spine. FINDINGS: The vertebral bodies and posterior elements are normal. The vertebral alignment is normal. Mild degenerative disc disease with anterior osteophyte formation and disc space narrowing seen at T12/L1. The paraspinal soft tissues are normal. XR/XR lumbar spine 2-3V IMPRESSION: Mild degenerative disc disease at T12/L1. Electronically signed by: Vishnu Thrasher MD 03/11/2024 11:11 AM HOLDEN DAVALOS
== END 2024-03-09 13:54 | disposition home or self-care (01) ==
LOC: HO.HHCX 13:53
PROVIDERS: Visit Provider Nurse Practitioner
DX: M54.42 Lumbago with sciatica, left side (principal); M54.41 Lumbago with sciatica, right side
CPT/HCPCS: 72100

== ENCOUNTER 2024-03-20 09:19 | Outpatient (REF) | payer MEDICAID, SELFPAY ==
[2024-03-20 11:37] LABS: Estimated Average Glucose 143 mg/dL; Hemoglobin A1C 174.3265 umol/L; Hemoglobin A1c % 6.6 % (<6.0); Total Hemoglobin (HGBA1C) 3611.9044 umol/L
[2024-03-20 11:53] LABS: Creatinine Urine 170.65 mg/dL
[2024-03-20 12:06] LABS: Alanine Aminotransferase 27 U/L (0-40); Albumin Level 4.7 g/dL (3.5-5.0); Alkaline Phosphatase 101 U/L (39-117); Anion Gap 15 (12-20); Aspartate Amino Transferase 31 U/L (5-37); Bilirubin Total 0.7 mg/dL (0.0-1.0); Blood Urea Nitrogen 24 mg/dL (9-16); Calcium 9.7 mg/dL (8.4-10.2); Carbon Dioxide 24 mmol/L (22-29); Chloride 107 mmol/L (96-108); Cholesterol 163 mg/dL (<200); Estimated Glomerular Filt Rate > 60; Glucose Random 119 mg/dL (60-115); HDL Cholesterol 42 mg/dL (>40); LDL Cholesterol Calculated 89 mg/dL (<100); Microalbum/Creatinine Ratio Ur 741.2 ug/mg cr (<30); Potassium 4.6 mmol/L (3.3-5.1); Sodium 141 mmol/L (135-145); Total Protein 8.3 g/dL (6.5-8.0); Triglycerides 160 mg/dL (<150); Vitamin D 25-OH Total 19.9 ng/mL (>30)
[2024-03-20 12:14] LABS: Syphilis Screen Nonreactive (Nonreactive)
[2024-03-20 12:15] LABS: Vitamin B12 240 pg/mL (200-900)
[2024-03-20 12:17] LABS: HBS Num1 83.97 mIU/mL (0-7.99); HBc Num1 0.21 S/CO (0.00-0.79); HBsAGNum1 0.34 S/CO (0.00-0.99); HIV AB/AG Nonreactive (Nonreactive); HIV Num 1 0.06 S/CO (0.00-0.99); Hepatitis A Antibody IgM 0.17 Index (0-0.79); Hepatitis B Core Antibody Nonreactive (Nonreactive); Hepatitis B Surface Antigen Negative (Negative); ~Hepatitis A Antibody IgM Nonreactive (Nonreactive); ~Hepatitis B Surface Antibody REACTIVE (Nonreactive); ~Hepatitis C Antibody Nonreactive (Nonreactive)
[2024-03-20 13:59] LABS: Reflex LDLD? No
[2024-03-22 18:24] LABS: TS Negative Control Passed; TS Panel A 0; TS Panel B 0; TS Positive Control Passed; TSpotTB Negative (Negative)
== END 2024-03-20 09:20 | disposition home or self-care (01) ==
LOC: HO.HHCL 09:19
PROVIDERS: Visit Provider Internal Medicine
DX: Z00.00 Encounter for general adult medical examination without abnormal findings (principal); E11.9 Type 2 diabetes mellitus without complications; E55.9 Vitamin D deficiency, unspecified
CPT/HCPCS: 36415; 80053; 80061; 82043; 82306; 82570; 82607; 83036; 86481; 86704; 86706; 86709; 86780; 86803; 87340; 87389

== ENCOUNTER → 2024-08-29 06:09 | Outpatient (BNV) | payer SELFPAY | PROVIDERS: Visit Provider Radiology Diagnostic Radiology | DX: M47.814 Spondylosis without myelopathy or radiculopathy, thoracic region (principal); M47.817 Spondylosis without myelopathy or radiculopathy, lumbosacral region; M25.572 Pain in left ankle and joints of left foot | CPT/HCPCS: 72100; 73610 ==

== ENCOUNTER 2024-08-29 06:10 | Emergency (ER) | payer OTHER, SELFPAY ==
--- NOTE | ~2024-08-29 | XR_ITS ---
EXAMINATION: XR ANKLE, LEFT CLINICAL INFORMATION: left ankle pain COMPARISON: None available. TECHNIQUE: AP, lateral, and mortise views of the left ankle. FINDINGS: No acute cortical disruption. No gross malalignment. No lytic or blastic lesions. No subcutaneous emphysema. No metallic or radiopaque foreign body. No gross joint effusion, anterior tibiotarsal bursa . XR/XR ankle LT min 3V IMPRESSION: No acute fracture or dislocation. Negative exam. Electronically signed by: Adelso Fisher MD 08/29/2024 08:06 AM EDT
--- NOTE | ~2024-08-29 | XR_ITS ---
EXAMINATION: XR LUMBOSACRAL SPINE CLINICAL INFORMATION: back pain COMPARISON: March 09, 2024. TECHNIQUE: Three views of the lumbosacral spine. FINDINGS: Marginal osteophyte formation and endplate sclerosis involving the lower thoracic spine and L5-S1. No acute cortical disruption or gross malalignment. No lytic or blastic lesions Spina bifida occulta S1 and S2. XR/XR lumbar spine 2-3V IMPRESSION: Multilevel lower thoracic and L5-S1 spondylosis without acute fracture or gross listhesis. Electronically signed by: Adelso Fisher MD 08/29/2024 08:05 AM EDT
[2024-08-29 06:21] VITALS: BP 139/86; PULSE 57; RESP 16; TEMP 36.3; O2SAT 99; BMI 26.0
--- NOTE | 2024-08-29 09:22 | ED.BACK ---
HPI - Back Pain/Injury General Chief Complaint: Extremity Problem Stated Complaint: back pain, swollen left foot Time Seen by Provider: 08/29/24 09:20 Source: patient, family and old records reviewed Mode of arrival: ambulatory Limitations: no limitations History of Present Illness ED Provider: AUGUSTO PEREIRA Narrative: 48 yo male with PMH of diabetes, not on thinners, no IVDA, CAD, CKD here with c/o getting up in middle of night and rolling L ankle now with pain on walking. He also c/o low back pain for 2 weeks goes into both thighs but no numbness, weakness, loss of control of bowel or bladder, no thinners. He has not taken anything for it. No fevers. No abd pain. MD elicited complaint: back pain Pertinent past history: prior back pain Onset (ago): week(s) (2) Timing: constant Severity: moderate Similar Symptoms Previously: Yes Quality: dull and throbbing Location: lumbar spine Radiation: left upper leg and right upper leg Exacerbating factors: movement Relieving factors: immobilization Context: other Associated symptoms: denies other symptoms Work related injury: No Related Data Home Medications ?Medication ?Instructions ?Recorded ?Confirmed aspirin 81 mg tablet,delayed 1 tab PO DAILY 10/04/20 10/04/20 release fluticasone propionate 110 1 puff PO BID 10/04/20 10/04/20 mcg/actuation HFA aerosol inhaler (Flovent HFA) glipizide 2.5 mg tablet, extended 1 tab PO QAM 10/04/20 10/04/20 release 24 hr losartan 100 mg tablet 1 tab PO DAILY 10/04/20 10/04/20 metformin 500 mg tablet 2 tab PO BID 10/04/20 10/04/20 rosuvastatin 20 mg tablet 1 tab PO DAILY 10/04/20 10/04/20 Previous Rx's ?Medication ?Instructions ?Recorded peg 3350-electrolytes 236 240 ml PO Q10M 1 day #4,000 mL 06/12/21 gram-22.74 gram-6.74 gram-5.86 gram solution (Golytely) pyridoxine (vitamin B6) 100 mg 100 mg PO DAILY 90 days #90 tabs 08/07/21 tablet acetaminophen 500 mg tablet 500 mg PO Q6H PRN fever or pain 01/18/23 (Tylenol Extra Strength) #14 tabs cyclobenzaprine 5 mg tablet 5 mg PO Q8H PRN pain (scale score 01/18/23 7-10) 5 days #14 tabs lidocaine 5 % topical patch 1 patch topical DAILY PRN pain #30 01/18/23 (Lidoderm) ea naproxen 500 mg tablet 500 mg PO BID PRN pain 10 days #20 01/18/23 tabs diazepam 5 mg tablet (Valium) 5 mg PO TID PRN muscle spasm #10 08/29/24 tabs ibuprofen 600 mg tablet 600 mg PO Q6H PRN pain #30 tabs 08/29/24 lidocaine 5 % topical patch 1 patch topical DAILY #30 ea 08/29/24 Allergies Allergy/AdvReac Type Severity Reaction Status Date / Time No Known Allergies Allergy Verified 08/29/24 06:24 [No Known Allergies*] Review of Systems Review of Systems: Constitutional : No Weight loss, No Fever, No Chills, ENT/Mouth : No Hearing loss, No Ear Pain, No Nasal Congestion, No Sinus Pain, No Hoarseness, No sore throat, No Rhinorrhea, No Swallowing Difficulty Cardiovascular : No Chest Pain, No SOB Respiratory : No Cough, No Dyspnea Gastrointestinal : No Nausea, No Vomiting, No Diarrhea, No abdominal Pain, No Hematochezia, No Melena Genitourinary : No Dysuria, No Urinary Frequency, No Hematuria, No Urinary Incontinence, Musculoskeletal : positive back pain, pos joint pain Skin : No Skin Lesions, No rash Neuro : No Weakness, No Numbness, No Paresthesias, no loss of bowel or bladder incontinence, no saddle anesthesia all other systems reviewed and are negative PMFSH Past Medical History Attestation statement: The following information was validated with the patient. Source: old records reviewed Medical History Anemia CAD (coronary artery disease) ETOH abuse Renal insufficiency Arthritis Neck pain Low back pain History of COVID-19 Myocardial infarction Diabetes Renal calculi Elevated cholesterol Asthma Hypertension Surgical History S/P cystoscopy with ureteral stent placement History of lithotripsy Hx of heart artery stent Social History Social History Household Members: Family Housing: Apartment Do you presently have visiting nurse or other home services: No Alcohol intake: unknown Patient Tobacco Use Status: Never used Tobacco Advance Directives: No Advance Directives Information Provided: Yes service: No Current occupational status: unemployed Physical Exam Vital Signs: Vital Signs: Last Vital Signs Temp 98.0 F 08/29/24 09:29 Pulse 58 08/29/24 09:29 Resp 16 08/29/24 09:29 BP 128/88 08/29/24 09:29 Pulse Ox 99 08/29/24 09:29 O2 Del Method Room Air 08/29/24 09:29 BMI result Body Mass Index 26.0 Appearance: Alert. Oriented X3. No acute distress. Eyes: Pupils equal, round and reactive to light. ENT: Pharynx normal. Neck: Normal inspection. Neck supple. CVS: Normal heart rate and rhythm. Pulses normal. Respiratory: No respiratory distress. Breath sounds normal. Abdomen: Soft and nontender. Back: ttp along low back bilateral paraspinals Skin: Skin warm and dry. Normal skin color. Normal skin turgor. Extremities: No lower extremity edema. No calf ttp, normal achilles exam ttp along L ankle lateral malleolus - 2+ DP pulse Neuro: Oriented X 3. No motor deficit. No sensory deficit. CN2-12 intact Medical Decision Making Medical Decision Making MDM Narrative: 48 yo male with PMH of diabetes, not on thinners, no IVDA, CAD, CKD here with c/o low back pain but no cauda equina symptoms and he is neuro intact. Will start on pain control and refer to PCP. He also rolled L ankle on exam pulses intact, SILT intact, will xray pain is localized to lat malleolus Differential Diagnosis Differential Diagnoses: The differential diagnosis associated with the presentation includes low back strain, sprain Admission/Observation Consideration of admission/observation: Escalation of care including admission/observation considered reassuring exam stable for DC Independent Interpretation I performed an independent interpretation of an: Plain X-Ray (no fx) Radiology Impression Discussion of test interpretation with radiology: I have reviewed the radiologist's reading. Independent Historian Clinical information obtained from an independent historian. History obtained from or confirmed by: Spouse External Record Review External record reviewed: Outpatient record Prescription Management I considered prescription management with: Pain Medication and Other Discharge Plan Discharge Clinical Impression: Low back strain Qualifiers: Encounter type: initial encounter Qualified Code(s): S39.012A - Strain of muscle, fascia and tendon of lower back, initial encounter Ankle sprain Qualifiers: Encounter type: initial encounter Involved ligament of ankle: unspecified ligament Laterality: left Qualified Code(s): S93.402A - Sprain of unspecified ligament of left ankle, initial encounter Patient Disposition: Home, Self-Care Instructions: Ankle Sprain (ED), Low Back Strain (ED), Ankle Stirrup Splint (ED) Additional Instructions: no broken bones on xray mild arthritis changes on back xray return for worsening pain, numbness, weakness, loss of control of bowel or bladder or any other concerns no heaving lifting more than 10lbs for 2 weeks. Prescriptions: New lidocaine 5 % adhesive patch,medicated 1 patch topical DAILY Qty: 30 0RF Rx Instructions: leave on most painful area for up to 12 hrs ibuprofen 600 mg tablet 600 mg PO Q6H PRN (Reason: pain) Qty: 30 0RF diazepam [Valium] 5 mg tablet 5 mg PO TID PRN (Reason: muscle spasm) Qty: 10 0RF Rx Instructions: partial fill is okay No Action pyridoxine (vitamin B6) 100 mg tablet 100 mg PO DAILY 90 Days Qty: 90 1RF metformin 500 mg tablet 2 tab PO BID aspirin 81 mg tablet,delayed release (DR/EC) 1 tab PO DAILY glipizide 2.5 mg tablet extended release 24hr 1 tab PO QAM losartan 100 mg tablet 1 tab PO DAILY Flovent HFA 110 mcg/actuation HFA aerosol inhaler 1 puff PO BID rosuvastatin 20 mg tablet 1 tab PO DAILY acetaminophen [Tylenol Extra Strength] 500 mg tablet 500 mg PO Q6H PRN (Reason: fever or pain) Qty: 14 0RF lidocaine [Lidoderm] 5 % adhesive patch,medicated 1 patch topical DAILY MDD remove after 12 hours PRN (Reason: pain) Qty: 30 0RF Rx Instructions: leave on most painful area for up to 12 hrs naproxen 500 mg tablet 500 mg PO BID PRN (Reason: pain) 10 Days Qty: 20 0RF cyclobenzaprine 5 mg tablet 5 mg PO Q8H PRN (Reason: pain (scale score 7-10)) 5 Days Qty: 14 0RF peg 3350-electrolytes [Golytely] 236-22.74-6.74 -5.86 gram recon soln 240 ml PO Q10M 1 Days Qty: 4000 0RF Rx Instructions: until fecal effluent is clear; do not exceed a total volume of 2,000 mL Stand Alone Forms: Work/School Release Interventions: ED Discharge Assessment Last Done: 08/29/24 09:29 Discharge Date/Time: 08/29/24 09:36 Print Language: Ghanaian
[2024-08-29 09:29] VITALS: BP 128/88; PULSE 58; RESP 16; TEMP 36.7; O2SAT 99
== END 2024-08-29 09:36 | disposition home or self-care (01) ==
PROVIDERS: Emergency Provider Emergency Medicine; PCP Family Medicine
DX: S39.012A Strain of muscle, fascia and tendon of lower back, initial encounter (principal); S93.402A Sprain of unspecified ligament of left ankle, initial encounter; X50.1XXA Overexertion from prolonged static or awkward postures, initial encounter; M54.50 Low back pain, unspecified; Y93.89 Activity, other specified; Y92.013 Bedroom of single-family (private) house as the place of occurrence of the external cause; Y99.9 Unspecified external cause status
CPT/HCPCS: 72100; 73610; 99282; 99283